=== PATIENT | female | born 1955 | race Caucasian/White ===

== ENCOUNTER 2017-12-02 11:07 | Emergency (ER) | payer OTHER, SELFPAY ==
--- OUTSIDE RECORDS SUMMARY | 2017-12-02 11:08 | XMS REPORT | Clinical Summary ---
:1955 Author Organization [facility] Address [address] [place] [address] Phone Care Team Providers Name Role Phone Unavailable Primary Care Provider Unavailable Allergies Active Allergy Reactions Severity Noted Date Comments Elastic Bandage 12/02/2015 Iodinated Contrast- Oral And Iv Dye 12/02/2015 Sulfa (Sulfonamide Antibiotics) 12/02/2015 Current Medications Prescription Sig. Disp. Refills Start Date End Date Status HYDROmorphone (DILAUDID) 4 Take 4 mg by mouth Active MG tablet every 4 (four) hours as needed for Pain. traZODone (DESYREL) 300 MG Take 300 mg by Active tablet mouth nightly. TiZANidine (ZANAFLEX) 4 MG Take 4 mg by mouth Active capsule 3 (three) times daily. propranolol (INDERAL) 40 Take 40 mg by Active MG tablet mouth 3 (three) times daily. Active Problems Not on file Social History Tobacco Use Types Packs/Day Years Used Date Former Smoker Cigarettes Quit: 12/01/1985 Smokeless Tobacco: Never Used Alcohol Use Drinks/Week oz/Week Comments No Sex Assigned at Date Recorded Not on file Last Filed Vital Signs Not on file Plan of Treatment Not on file Results Not on fileafter 12/01/2016
[2017-12-02] MEDS ORDERED: NA CHLORIDE 0.9% 1,000 ML ONE (11:23)
[2017-12-02 12:35] LABS: Absolute Lymphocytes (CBC) 1.9 K/uL (0.7-4.9); Absolute Monocytes 0.5 K/uL (0.1-1.3); Absolute Neutrophil 2.7 K/uL (1.8-8.0); Basophils % 0.4 % (0-1.3); Eosinophils % 4.7 % (0-4.4); Lymphocytes % 35.2 % (15.3-44.8); MCH 31.7 pg (27.0-35.0); MCV 93.9 fL (80-100); MPV 8.1 fL (7.6-11.3); RBC Red Blood Cell Count 4.04 M/uL (3.86-4.86)
[2017-12-02 12:36] LABS: Protime INR 1.03
[2017-12-02 12:50] LABS: ALT/SGPT 219 U/L (12-78); AST/SGOT 160 U/L (15-37); Albumin 3.5 g/dL (3.4-5.0); Alkaline Phosphatase 140 U/L (45-117); BUN Blood Urea Nitrogen 13 mg/dL (7-18); Bicarbonate 30 mmol/L (21-32); Bilirubin Direct 0.1 mg/dL (0-0.2); Bilirubin Total 0.4 mg/dL (0.2-1.0); Glucose Level 110 mg/dL (74-106); Potassium 4.5 mmol/L (3.5-5.1); Sodium Level 142 mmol/L (136-145)
--- NOTE | 2017-12-02 13:01 | EDPHYS ---
Physician Documentation [facility] Name: Lanny Bolton Age: 62 yrs Sex: Female : 1955 Arrival Date: 12/02/2017 Time: 11:09 Bed 7 Private MD: ED Physician Aristides Fritz HPI: 12/02 13:21 This 62 yrs old Female presents to ER via EMS with complaints of Altered gs Mental Status. 13:21 Onset: The symptoms/episode began/occurred 1 hour(s) ago. Possible causes: drug use, gs benzodiazepines, narcotics, alcohol. Associated signs and symptoms: Pertinent negatives: fall injury. Current symptoms: In the emergency department the patient's symptoms have improved, mildly. The patient has experienced similar episodes in the past, several times. The patient has not recently seen a physician. Historical: - Allergies: 11:15 Iodine; tw2 11:15 Sulfa (Sulfonamide Antibiotics); tw2 - Home Meds: 11:15 Unable to obtain [Active]; tw2 - PMHx: 11:15 Seizures; ptsd; Hypertension; tw2 - Immunization history:: Adult Immunizations unknown. - Social history:: Smoking status: unknown. - Ebola Screening: : Patient denies travel to an Ebola-affected area in the 21 days before illness onset. ROS: 13:21 All other systems are negative. gs Exam: 13:21 Head/Face: Normocephalic, atraumatic. Eyes: Pupils equal round and reactive to light, gs extra-ocular motions intact. Lids and lashes normal. Conjunctiva and sclera are non-icteric and not injected. Cornea within normal limits. Periorbital areas with no swelling, redness, or edema. ENT: Nares patent. No nasal discharge, no septal abnormalities noted. Tympanic membranes are normal and external auditory canals are clear. Oropharynx with no redness, swelling, or masses, exudates, or evidence of obstruction, uvula midline. Mucous membranes moist. Neck: Trachea midline, no thyromegaly or masses palpated, and no cervical lymphadenopathy. Supple, full range of motion without nuchal rigidity, or vertebral point tenderness. No Meningismus. Chest/axilla: Normal chest wall appearance and motion. Nontender with no deformity. No lesions are appreciated. Cardiovascular: Regular rate and rhythm with a normal S1 and S2. No gallops, murmurs, or rubs. Normal PMI, no JVD. No pulse deficits. Respiratory: Lungs have equal breath sounds bilaterally, clear to auscultation and percussion. No rales, rhonchi or wheezes noted. No increased work of breathing, no retractions or nasal flaring. Abdomen/GI: Soft, non-tender, with normal bowel sounds. No distension or tympany. No guarding or rebound. No evidence of tenderness throughout. Back: No spinal tenderness. No costovertebral tenderness. Full range of motion. Skin: Warm, dry with normal turgor. Normal color with no rashes, no lesions, and no evidence of cellulitis. MS/ Extremity: Pulses equal, no cyanosis. Neurovascular intact. Full, normal range of motion. 13:21 Constitutional: The patient appears alert, awake. 13:21 Eyes: Pupils: pinpoint, bilaterally. 13:21 Neuro: Orientation: to person, place, time \T\ situation. Mentation: slow to respond, Cranial nerves: CN II- XII are normal as tested. 13:21 Neuro: Cerebellar function: no acute changes, Motor: moves all fours, strength is normal, Sensation: no obvious gross deficits, Gait: is steady. 13:55 ECG was reviewed by the Attending Physician. Vital Signs: 11:13 BP 115 / 53; Pulse 61; Resp 16; Temp 97.9(TE); Pulse Ox 95% on R/A; Weight 111.13 kg tw2 (R); Height 5 ft. 6 in. (167.64 cm); Pain 0/10; 12:00 BP 110 / 62; Pulse 60; Resp 16; Pulse Ox 95% on R/A; tw2 13:11 BP 106 / 64; Pulse 57; Resp 16; Pulse Ox 95% on R/A; tw2 11:13 Body Mass Index 39.54 (111.13 kg, 167.64 cm) tw2 NIH Stroke Scale Scores: 13:21 NIHSS Score: 1 MDM: 11:22 Patient medically screened. 13:21 Data reviewed: vital signs, nurses notes. ED course: no tpa refused ct no stroke wants gs to be discharged. 12/02 11:15 Order name: Acetaminophen; Complete Time: 13:58 12/02 11:15 Order name: Basic Metabolic Panel; Complete Time: 13:58 12/02 11:15 Order name: CBC with Diff; Complete Time: 13:58 12/02 11:15 Order name: ETOH Level; Complete Time: 13:58 12/02 11:15 Order name: Hepatic Function; Complete Time: 13:58 12/02 11:15 Order name: PT-INR; Complete Time: 13:58 12/02 11:15 Order name: Salicylate; Complete Time: 13:58 12/02 11:15 Order name: EKG; Complete Time: 11:16 12/02 11:15 Order name: EKG - Nurse/Tech; Complete Time: 12:12 12/02 11:15 Order name: Labs collected and sent; Complete Time: 12:12 gs EC:55 Rate is 56 beats/min. Rhythm is regular. NM interval is prolonged. T waves are gs Flattened. Clinical impression: NSR w/ Non-specific ST/T Changes. Interpreted by me. Administered Medications: 14:47 Not Given (no iv access, provider aware): NS 0.9% 1000 ml IV at 1 bolus Per protocol; tw2 1000 mL bolus Disposition: 12/02/17 12:59 Discharged to Home. Impression: Opioid dependence with intoxication, Adverse effect of benzodiazepines. - Condition is Stable. - Discharge Instructions: Drug Overdose. - Medication Reconciliation Form, Thank You Letter, Antibiotic Education, Prescription Opioid Use form. - Follow up: Private Physician; When: 2 - 3 days; Reason: Re-evaluation by your physician. NIH Stroke Scale - NIH Stroke Score Date: 12/02/2017 Time: 13:21 Total Score = 1 1a. Level of Consciousness (LOC) - 0(Alert) 1b. Level of Consciousness (LOC) (Year \T\ Age) - 0(Both) 1c. LOC Commands (Open \T\ Closes Eyes/[place]) - 0(Both) 2. Best Gaze (Lateral Gaze Paresis) - 0(Normal) 3. Visual Field Loss - 0(No visual loss) 4. Facial Palsy - 0(Normal) 5a. Left Arm: Motor (10-second hold) - 0(No drift) 5b. Right Arm: Motor (10-second hold) - 0(No drift) 6a. Left Leg: Motor (5-second hold - always test supine) - 0(No drift) 6b. Right Leg: Motor (5-second hold - always test supine) - 0(No drift) 7. Limb Ataxia (finger/nose \T\ heel/matthews - test with eyes open) - 0(Absent) 8. Sensory Loss (pinprick arms/legs/face) - 0(Normal) 9. Best Language: Aphasia (description/naming/reading) - 0(No aphasia) 10. Dysarthria (speech clarity - read or repeat words) - 1(Mild to Moderate) 11. Extinction and Inattention (visual/tactile/auditory/spatial/personal) - 0(No abnormality) Initials: gs Signatures: Dispatcher [employer] EDMS Marilu Centeno RN RN tw2 Aristides Fritz MD MD gs Corrections: (The following items were deleted from the chart) 12:56 12:13 Head Brain Wo Cont+CT.RAD.BRZ ordered. [facility] EDMS 13:12 12:59 12/02/2017 12:59 Discharged to Home. Impression: Opioid dependence with tw2 intoxication; Adverse effect of benzodiazepines. Condition is Stable. Forms are Medication Reconciliation Form, Thank You Letter, Antibiotic Education, Prescription Opioid Use. Follow up: Private Physician; When: 2 - 3 days; Reason: Re-evaluation by your physician. gs
--- NOTE | 2017-12-02 13:01 | ER ---
Nurse's Notes [facility] Name: Lanny Bolton Age: 62 yrs Sex: Female : 1955 Arrival Date: 12/02/2017 Time: 11:09 Bed 7 Private MD: Diagnosis: Opioid dependence with intoxication;Adverse effect of benzodiazepines Presentation: 12/02 11:10 Presenting complaint: EMS states: original call was that pt was at a gas station in [place], stumbling and staggering and was confused, PD arrived and called us because she was altered. When we arrived pt was ambulatory on scene, alert to name only, denies ETOH and drugs, reports to taking xanax and hydrocodone for chronic back and hip pain, hx: ptsd, seizures, htn, pt has phone and sunglasses on at this time, dog was taken to the police department, no purse seen on scene. Transition of care: patient was not received from another setting of care. Onset of symptoms was December 02, 2017. Risk Assessment: Do you want to hurt yourself or someone else? Patient reports no desire to harm self or others. Initial Sepsis Screen: Does the patient meet any 2 criteria? Altered Mental Status. No. Patient's initial sepsis screen is negative. Does the patient have a suspected source of infection? No. Patient's initial sepsis screen is negative. Care prior to arrival: None. 11:10 Method Of Arrival: EMS: [facility] tw2 11:10 Acuity: SAMREEN 3 tw2 Triage Assessment: 11:10 General: Appears in no apparent distress. Behavior is drowsy. tw2 11:12 General: pt reports "i took dilaudid". tw2 Historical: - Allergies: 11:15 Iodine; tw2 11:15 Sulfa (Sulfonamide Antibiotics); tw2 - Home Meds: 11:15 Unable to obtain [Active]; tw2 - PMHx: 11:15 Seizures; ptsd; Hypertension; tw2 - Immunization history:: Adult Immunizations unknown. - Social history:: Smoking status: unknown. - Ebola Screening: : Patient denies travel to an Ebola-affected area in the 21 days before illness onset. Screenin:13 Abuse screen: Denies threats or abuse. Nutritional screening: No deficits noted. tw2 Tuberculosis screening: No symptoms or risk factors identified. Fall Risk None identified. Assessment: 11:10 General: Appears in no apparent distress. well groomed, Behavior is drowsy. Pain: tw2 Denies pain. Neuro: Level of Consciousness is obeys commands, Oriented to person. Cardiovascular: Denies chest pain, shortness of breath, Heart tones S1 S2 Capillary refill < 3 seconds Patient's skin is warm and dry. Respiratory: Airway is patent Respiratory effort is even, unlabored, Respiratory pattern is regular, symmetrical, Breath sounds are clear bilaterally. GI: Abdomen is round non-distended, obese, Bowel sounds present X 4 quads. : No signs and/or symptoms were reported regarding the genitourinary system. EENT: No signs and/or symptoms were reported regarding the EENT system. Derm: No signs and/or symptoms reported regarding the dermatologic system. Skin is intact, is healthy with good turgor, Skin temperature is warm. Musculoskeletal: Range of motion: intact in all extremities. 12:41 Reassessment: Patient appears in no apparent distress at this time. Patient and/or tw2 family updated on plan of care and expected duration. Pain level reassessed. Patient is alert, oriented x 3, equal unlabored respirations, skin warm/dry/pink. pt is less drowsy, sitting upright in bed, using phone at this time, provider notified. Patient states symptoms have improved. 13:10 Reassessment: Patient appears in no apparent distress at this time. Patient and/or tw2 family updated on plan of care and expected duration. Pain level reassessed. Patient is alert, oriented x 3, equal unlabored respirations, skin warm/dry/pink. pt a\\T\\ox4, spouse at bedside, pt wants discharged at this time. Patient states symptoms have improved. Vital Signs: 11:13 BP 115 / 53; Pulse 61; Resp 16; Temp 97.9(TE); Pulse Ox 95% on R/A; Weight 111.13 kg tw2 (R); Height 5 ft. 6 in. (167.64 cm); Pain 0/10; 12:00 BP 110 / 62; Pulse 60; Resp 16; Pulse Ox 95% on R/A; tw2 13:11 BP 106 / 64; Pulse 57; Resp 16; Pulse Ox 95% on R/A; tw2 11:13 Body Mass Index 39.54 (111.13 kg, 167.64 cm) tw2 NIH Stroke Scale Scores: 13:21 NIHSS Score: 1 ED Course: 11:09 Patient arrived in ED. tw2 11:12 Aristides Fritz MD is Attending Physician. gs 11:12 Triage completed. tw2 11:13 Bed in low position. Call light in reach. Side rails up X2. satellite project site monitor on. Pulse tw2 ox on. NIBP on. 11:15 Arm band placed on. tw2 11:17 Yessica Potter, NERY is Primary Nurse. jl7 11:49 EKG done, by coroner forensic technician. reviewed by Aristides Fritz MD. at1 12:07 Missed attempt(s): 20 gauge in left antecubital area. using US guided IV, provider tw2 notified of unsuccessful attempt, lab called at this time.. Bleeding controlled, band aid applied, catheter tip intact. 12:29 Radiology exam delayed due to Pt refused CT exam Dr. Fritz notified. vr 13:12 No provider procedures requiring assistance completed. Patient did not have IV access tw2 during this emergency room visit. Administered Medications: 14:47 Not Given (no iv access, provider aware): NS 0.9% 1000 ml IV at 1 bolus Per protocol; tw2 1000 mL bolus Outcome: 12:59 Discharge ordered by MD. gs 13:12 Discharged to home ambulatory, with significant other. tw2 13:12 Condition: stable 13:12 Discharge instructions given to patient, significant other, Instructed on discharge instructions, follow up and referral plans. Demonstrated understanding of instructions, follow-up care. 13:12 Patient left the ED. tw2 NIH Stroke Scale - NIH Stroke Score Date: 12/02/2017 Time: 13:21 Total Score = 1 1a. Level of Consciousness (LOC) - 0(Alert) 1b. Level of Consciousness (LOC) (Year \\T\\ Age) - 0(Both) 1c. LOC Commands (Open \\T\\ Closes Eyes/Buyer Renter) - 0(Both) 2. Best Gaze (Lateral Gaze Paresis) - 0(Normal) 3. Visual Field Loss - 0(No visual loss) 4. Facial Palsy - 0(Normal) 5a. Left Arm: Motor (10-second hold) - 0(No drift) 5b. Right Arm: Motor (10-second hold) - 0(No drift) 6a. Left Leg: Motor (5-second hold - always test supine) - 0(No drift) 6b. Right Leg: Motor (5-second hold - always test supine) - 0(No drift) 7. Limb Ataxia (finger/nose \\T\\ heel/matthews - test with eyes open) - 0(Absent) 8. Sensory Loss (pinprick arms/legs/face) - 0(Normal) 9. Best Language: Aphasia (description/naming/reading) - 0(No aphasia) 10. Dysarthria (speech clarity - read or repeat words) - 1(Mild to Moderate) 11. Extinction and Inattention (visual/tactile/auditory/spatial/personal) - 0(No abnormality) Initials: Signatures: Jojo Rodriguez Amanda, medical language specialist EKG Tat1 Marilu Centeno RN RN tw2 Yessica Potter RN RN jl7 Aristides Fritz MD MD gs Corrections: (The following items were deleted from the chart) 12:30 12:17 Patient moved to PR vr vr
[2017-12-02 13:03] LABS: Alcohol Serum/Plasma < 3 mg/dL (<3)
[2017-12-02 13:45] VITALS: TEMP 97.9; O2SAT 95
[2017-12-02 13:47] VITALS: BP 106/64
--- NOTE | 2017-12-02 17:14 | EKG ---
Test Date: 2017-12-02 Test Time: 11:24:20 Technical Project Lead: BHAVANA MEASUREMENT RESULTS: Intervals: Rate: 56 VA: 208 QRSD: 96 QT: 458 QTc: 441 [place]: P: 41 VA: 208 QRS: 106 T: 27 INTERPRETIVE STATEMENTS: Sinus bradycardia Rightward axis Borderline ECG Compared to ECG 02/12/2015 02:23:33 Right-axis deviation now present Sinus rhythm no longer present ST (T wave) deviation no longer present Electronically Signed On 12-02-17 17:11:00 CDT by Hermes Iniguez
== END 2017-12-02 13:12 | disposition home or self-care (01) ==
LOC: ER 11:07
DX: F11.229 Opioid dependence with intoxication, unspecified (principal); T42.4X5A Adverse effect of benzodiazepines, initial encounter; I10 Essential (primary) hypertension; Z88.2 Allergy status to sulfonamides; Z91.048 Other nonmedicinal substance allergy status
CPT/HCPCS: 36415; 80048; 80076; 80320; 80329; 85025; 85610; 93005; 99284; J7030

== ENCOUNTER 2018-04-19 10:32 | Observation (INO) | payer SELFPAY ==
--- OUTSIDE RECORDS SUMMARY | 2018-04-19 10:38 | XMS REPORT | Clinical Summary ---
:1955 Author Organization [facility] Address [address] [place] [address] Care Team Providers Name Role Phone Pcp, No Primary Care Provider Unavailable Allergies Active Allergy Reactions Severity Noted Date Comments Elastic Bandage 12/02/2015 Iodinated Contrast- Oral And Iv Dye 12/02/2015 Sulfa (Sulfonamide Antibiotics) 12/02/2015 Medications Medication Sig Dispensed Refills Start Date End Date Status HYDROmorphone (DILAUDID) Take 4 mg by 0 Active 4 MG tablet mouth every 4 (four) hours as needed for Pain. traZODone (DESYREL) 300 Take 300 mg by 0 Active MG tablet mouth nightly. TiZANidine (ZANAFLEX) 4 Take 4 mg by 0 Active MG capsule mouth 3 (three) times daily. propranolol (INDERAL) 40 Take 40 mg by 0 Active MG tablet mouth 3 (three) times daily. Active Problems Not on file Social History Tobacco Use Types Packs/Day Years Used Date Former Smoker Cigarettes Quit: 12/01/1985 Smokeless Tobacco: Never Used Alcohol Use Drinks/Week oz/Week Comments No Sex Assigned at Date Recorded Not on file Job Start Date Occupation Industry Not on file Not on file Not on file Travel History Travel Start Travel End No recent travel history available. Last Filed Vital Signs Not on file Plan of Treatment Not on file Results Not on fileafter 04/18/2017
--- NOTE | 2018-04-19 11:09 | RAD REPORT ---
EXAM DESCRIPTION: CT - Ct Stroke Brain Wo Cont - 04/19/2018 11:03 am CLINICAL HISTORY: Dizziness;Declining state;Confused CVA symptomology, drowsiness COMPARISON: Head Brain Wo Cont dated 08/13/2015; HEAD BRAIN W O CONTRAST dated 02/10/2015 TECHNIQUE: All CT scans are performed using dose optimization technique as appropriate and may inclu de automated exposure control or mA/KV adjustment according to patient size. FINDINGS: No intracranial hemorrhage, hydrocephalus or extra-axial fluid collection.Mild brain atrop hy is noted.No areas of brain edema or evidence of midline shift. The paranasal sinuses and mastoids are clear. The calvarium is intact. IMPRESSION: No acute intracranial abnormality.
--- NOTE | 2018-04-19 11:20 | EKG ---
Test Date: 2018-04-19 Test Time: 10:49:41 Electrotype Caster: JENNIFER MEASUREMENT RESULTS: Intervals: Rate: 51 CA: 206 QRSD: 106 QT: 458 QTc: 422 [place]: P: 46 CA: 206 QRS: 29 T: -1 INTERPRETIVE STATEMENTS: Sinus bradycardia Otherwise normal ECG Compared to ECG 12/02/2017 11:24:20 Right-axis deviation no longer present Electronically Signed On 04-19-18 11:19:41 [employer] WORK[employer] by Jose Francisco Cardenas
--- NOTE | 2018-04-19 12:15 | RAD REPORT ---
EXAM DESCRIPTION: RAD - Chest Single View - 04/19/2018 12:07 pm CLINICAL HISTORY: COUGH Chest pain. COMPARISON: CHEST SINGLE VIEW dated 02/12/2015; CHEST SINGLE VIEW dated 02/10/2015; CHEST SINGLE VIE W dated 07/28/2013; CHEST SINGLE VIEW dated 07/26/2013; Thorax Wo Con dated 08/14/2015 FINDINGS: Portable technique limits examination quality. Emphysematous changes are present with vague opacity present in the left upper lobe, appearing mildly progressive since the 2014 comparative chest radiograph. The heart is upper limit of normal in size. No displaced fractures.
[2018-04-19 13:02] LABS: Absolute Lymphocytes (CBC) 1.7 K/uL (0.7-4.9); Absolute Monocytes 0.5 K/uL (0.1-1.3); Absolute Neutrophil 2.7 K/uL (1.8-8.0); Basophils % 1.4 % (0-1.3); Eosinophils % 6.6 % (0-4.4); Hematocrit 41.1 % (36.0-45.0); Lymphocytes % 31.4 % (15.3-44.8); MPV 8.2 fL (7.6-11.3); Monocytes % 9.4 % (3.3-12.3); RBC Red Blood Cell Count 4.32 M/uL (3.86-4.86)
[2018-04-19 13:06] LABS: Protime INR 0.99
[2018-04-19 13:11] LABS: ALT/SGPT 66 U/L (12-78); AST/SGOT 65 U/L (15-37); Albumin 3.6 g/dL (3.4-5.0); Alkaline Phosphatase 120 U/L (45-117); BUN Blood Urea Nitrogen 12 mg/dL (7-18); Bicarbonate 31 mmol/L (21-32); Bilirubin Direct 0.2 mg/dL (0-0.2); Bilirubin Total 0.4 mg/dL (0.2-1.0); Glucose Level 106 mg/dL (74-106); Lipase 112 U/L (73-393); Magnesium 2.1 mg/dL (1.8-2.4); NT PRO-BNP 97 pg/mL (<125); Potassium 4.2 mmol/L (3.5-5.1); Protein, Total 7.5 g/dL (6.4-8.2); Sodium Level 139 mmol/L (136-145); Troponin (Emerg Dept Use Only) < 0.02 ng/mL (0.0-0.045)
--- NOTE | 2018-04-19 13:33 | RAD REPORT ---
EXAM DESCRIPTION: MRI - MRA Head Wo Cont - 04/19/2018 1:22 pm CLINICAL HISTORY: Headache, dizziness CVA COMPARISON: Ct Stroke Brain Wo Cont dated 04/19/2018 FINDINGS: 3D noncontrast [id number] MR angiography of the [place] was performed. No aneurysm, flow-limiting stenosis or vascular malformation is seen. Forward flow seen in codominant vertebral arteries. origin of the right posterior communicating artery noted, normal variant. The visualized dural venous sinuses appear patent. IMPRESSION: No significant flow abnormality of the [place] is identified.
[2018-04-19 13:45] LABS: Platelet Estimate ADEQ; Urine White Blood Cell Casts OK
[2018-04-19 13:46] LABS: Blood Morphology Comment NOT SEEN (NOT SEEN)
[2018-04-19 14:53] LABS: Barbiturates NEGATIVE (NEGATIVE); Benzodiazepines POSITIVE (NEGATIVE); Cocaine NEGATIVE (NEGATIVE); METHAMPHETAM NEGATIVE (NEGATIVE); Methadone NEGATIVE (NEGATIVE); Opiates NEGATIVE (NEGATIVE); Phencyclidine NEGATIVE (NEGATIVE); THC Cannibis NEGATIVE (NEGATIVE)
--- NOTE | 2018-04-19 15:41 | RAD REPORT ---
EXAM DESCRIPTION: US - CP - 04/19/2018 3:30 pm CLINICAL HISTORY: N CVA symptomology, drowsiness COMPARISON: CAROTID ARTERY BILATERAL dated 06/28/2011 TECHNIQUE: Real-time sonographic evaluation of both carotid systems was performed. Doppler interroga tion was performed with waveform tracing bilaterally. FINDINGS: Normal high resistance waveforms are noted in both external carotid arteries. The common c arotid arteries and internal carotid arteries show normal low resistance waveforms. Minimal plaquing is seen in both proximal internal carotid arteries. Peak systolic and end diastolic velocity values and the ICA/CCA ratios are in the non-hemodynamically significant range. Antegrade flow seen in both vertebral arteries. IMPRESSION: No significant atherosclerotic changes noted. No evidence of a hemodynamically significant stenosis.
[2018-04-19 16:18] LABS: Urine Blood 2+ (NEG); Urine Glucose NEGATIVE (NEG); Urine Protein 1+ (NEG); Urine Specific Gravity 1.015 (1.005-1.030)
--- NOTE | 2018-04-19 16:25 | EDPHYS ---
Physician Documentation [facility] Name: Lanny Bolton Age: 63 yrs Sex: Female : 1955 Arrival Date: 04/19/2018 Time: 10:35 Bed 7 Private MD: Unknown, Unknown ED Physician Geoff Lang HPI: 04/19 10:50 This 63 yrs old Female presents to ER via Ambulatory with complaints of S/S bertin of Possible Stroke. 10:50 The patient's problem is reported as altered mental status, confused. bertin Historical: - Allergies: 10:47 Iodine; ss 10:47 Sulfa (Sulfonamide Antibiotics); ss - Home Meds: 10:47 Dilaudid 4 mg PO 1 tablet QID PRN pain [Active]; trazodone 100 mg Oral tab 1 tab 3 ss times per day [Active]; Xanax 1 mg Oral tab 1 tab twice a day [Active]; Zanaflex 4 mg Oral tab 1 tab every 6 hours [Active]; Ambien 10 mg Oral tab 1 tab once daily [Active]; Inderal 40 mg DAILY [Active]; - PMHx: 10:47 Hypertension; PTSD; Seizures; Anxiety; chronic back pain; ss - Immunization history:: Adult Immunizations up to date. - Social history:: Smoking status: Patient/guardian denies using tobacco. - Ebola Screening: : Patient denies exposure to infectious person Patient denies travel to an Ebola-affected area in the 21 days before illness onset. - Family history:: not pertinent. ROS: 10:51 Constitutional: Negative for fever, chills, and weight loss, Eyes: Negative for injury, bertin pain, redness, and discharge, ENT: Negative for injury, pain, and discharge, Neck: Negative for injury, pain, and swelling, Cardiovascular: Negative for chest pain, palpitations, and edema, Respiratory: Negative for shortness of breath, cough, wheezing, and pleuritic chest pain, Abdomen/GI: Negative for abdominal pain, nausea, vomiting, diarrhea, and constipation, Back: Negative for injury and pain, : Negative for injury, bleeding, discharge, and swelling, MS/Extremity: Negative for injury and deformity, Skin: Negative for injury, rash, and discoloration, Allergy/Immunology: Negative for hives, rash, and allergies, Endocrine: Negative for neck swelling, polydipsia, polyuria, polyphagia, and marked weight changes, Hematologic/Lymphatic: Negative for swollen nodes, abnormal bleeding, and unusual bruising. 10:51 Neuro: Positive for altered mental status, dizziness, gait disturbance, speech changes, weakness. 10:51 Psych: Positive for auditory hallucinations, visual hallucinations. Exam: 10:51 Constitutional: This is a well developed, well nourished patient who is awake, alert, bertin and in no acute distress. Head/Face: Normocephalic, atraumatic. Eyes: Pupils equal round and reactive to light, extra-ocular motions intact. Lids and lashes normal. Conjunctiva and sclera are non-icteric and not injected. Cornea within normal limits. Periorbital areas with no swelling, redness, or edema. ENT: Nares patent. No nasal discharge, no septal abnormalities noted. Tympanic membranes are normal and external auditory canals are clear. Oropharynx with no redness, swelling, or masses, exudates, or evidence of obstruction, uvula midline. Mucous membranes moist. Neck: Trachea midline, no thyromegaly or masses palpated, and no cervical lymphadenopathy. Supple, full range of motion without nuchal rigidity, or vertebral point tenderness. No Meningismus. Chest/axilla: Normal chest wall appearance and motion. Nontender with no deformity. No lesions are appreciated. Cardiovascular: Regular rate and rhythm with a normal S1 and S2. No gallops, murmurs, or rubs. Normal PMI, no JVD. No pulse deficits. Respiratory: Lungs have equal breath sounds bilaterally, clear to auscultation and percussion. No rales, rhonchi or wheezes noted. No increased work of breathing, no retractions or nasal flaring. Abdomen/GI: Soft, non-tender, with normal bowel sounds. No distension or tympany. No guarding or rebound. No evidence of tenderness throughout. Back: No spinal tenderness. No costovertebral tenderness. Full range of motion. Female : Normal external genitalia. Skin: Warm, dry with normal turgor. Normal color with no rashes, no lesions, and no evidence of cellulitis. MS/ Extremity: Pulses equal, no cyanosis. Neurovascular intact. Full, normal range of motion. Neuro: Awake and alert, GCS 15, oriented to person, place, time, and situation. Cranial nerves II-XII grossly intact. Motor strength 5/5 in all extremities. Sensory grossly intact. Cerebellar exam normal. Normal gait. Psych: Awake, alert, with orientation to person, place and time. Behavior, mood, and affect are within normal limits. 16:25 Radiologist reports: neg [facility] Vital Signs: 10:50 BP 135 / 72; Pulse 57; Resp 18; Temp 97.1; Pulse Ox 95% on R/A; Weight 107.95 kg; ph Height 5 ft. 6 in. (167.64 cm); 12:00 BP 158 / 83; Pulse 54; Resp 18; Pulse Ox 96% on R/A; ph 13:14 BP 150 / 74; Pulse 53; Resp 16; Pulse Ox 95% on R/A; ph 16:37 BP 141 / 72; Pulse 52; Resp 18; Pulse Ox 96% on R/A; ph 10:50 Body Mass Index 38.41 (107.95 kg, 167.64 cm) ph NIH Stroke Scale Scores: 10:51 NIHSS Score: 0 bertin 12:00 NIHSS Score: 0 ph Procedures: 16:25 Central Line: the site was prepped with Betadine, in sterile fashion, a triple lumen [facility] catheter was inserted, in the right femoral vein, in 1 attempts. placement was verified, by blood return, the site was dressed with Tegaderm, the patient tolerated the procedure, well. MDM: 10:45 Patient medically screened. [facility] 10:54 Data reviewed: vital signs, nurses notes, lab test result(s), EKG, radiologic studies, [facility] CT scan, doppler, MRI, plain films. 04/19 10:49 Order name: Basic Metabolic Panel [facility] 04/19 10:49 Order name: CBC with Diff [facility] 04/19 10:49 Order name: LFT's [facility] 04/19 10:49 Order name: Magnesium [facility] 04/19 10:49 Order name: NT PRO-BNP [facility] 04/19 10:49 Order name: PT-INR; Complete Time: 15:44 [facility] 04/19 10:49 Order name: Troponin (emerg Dept Use Only); Complete Time: 13:21 [facility] 04/19 10:49 Order name: Lipase; Complete Time: 13:21 [facility] 04/19 10:49 Order name: Urine Culture [facility] 04/19 10:49 Order name: Acetaminophen; Complete Time: 13:21 [facility] 04/19 10:49 Order name: ETOH Level; Complete Time: 17:09 bertin 04/19 10:49 Order name: Ptt, Activated; Complete Time: 15:44 bertin 04/19 10:49 Order name: Salicylate bertin 04/19 10:49 Order name: Urine Drug Screen; Complete Time: 15:44 bertin 04/19 10:49 Order name: XRAY Chest (1 view); Complete Time: 12:52 bertin 04/19 10:49 Order name: CT Stroke Brain w/o Contrast; Complete Time: 12:52 bertin 04/19 10:49 Order name: Sed Rate; Complete Time: 15:44 bertin 04/19 10:49 Order name: CRP; Complete Time: 13:21 bertin 04/19 10:50 Order name: Basic Metabolic Panel; Complete Time: 13:21 EDMS 04/19 10:50 Order name: CBC with Automated Diff; Complete Time: 15:44 EDMS 04/19 10:50 Order name: Liver (Hepatic) Function; Complete Time: 13:21 EDMS 04/19 10:50 Order name: Magnesium; Complete Time: 13:21 EDMS 04/19 10:50 Order name: NT PRO-BNP; Complete Time: 13:21 EDMS 04/19 10:51 Order name: TSH; Complete Time: 17:09 bertin 04/19 12:33 Order name: MRA Head Wo Cont; Complete Time: 15:44 EDMS 04/19 13:12 Order name: Carotid Artery Bilateral; Complete Time: 15:44 EDMS 04/19 13:45 Order name: CBC Smear Scan; Complete Time: 15:44 EDMS 04/19 14:38 Order name: Urine Dipstick--Ancillary (enter results); Complete Time: 16:21 ag 04/19 10:49 Order name: EKG; Complete Time: 10:50 bertin 04/19 10:49 Order name: Cardiac monitoring; Complete Time: 10:59 bertin 04/19 10:49 Order name: EKG - Nurse/Tech; Complete Time: 10:59 bertin 04/19 10:49 Order name: IV Saline Lock; Complete Time: 16:37 bertin 04/19 10:49 Order name: Labs collected and sent; Complete Time: 16:37 bertin 04/19 10:49 Order name: O2 Per Protocol; Complete Time: 10:59 bertin 01/02 10:49 Order name: O2 Sat Monitoring; Complete Time: 10:59 [facility] 04/19 16:31 Order name: Brain Wo Cont EDMS Administered Medications: 16:35 Drug: NS 0.9% 500 ml Route: IV; Rate: bolus; Site: right femoral; ph 17:30 Follow up: Response: No adverse reaction; IV Status: Completed infusion ph 16:35 Drug: Ativan 1 mg Route: IVP; Site: right femoral; ph 17:00 Follow up: Response: No adverse reaction; Anxiety decreased ph 16:36 Drug: Thiamine 100 mg Route: IV; Rate: bolus; Site: right femoral; ph 17:00 Follow up: Response: No adverse reaction; IV Status: Completed infusion ph 16:36 Drug: foLIC Acid 1 mg Route: IVPB; Site: right femoral; ph 17:00 Follow up: Response: No adverse reaction; IV Status: Completed infusion ph 17:55 Drug: Rocephin - (cefTRIAXone) 1 grams Route: IVPB; Infused Over: 30 mins; Site: right ph femoral; 18:30 Follow up: Response: No adverse reaction; IV Status: Completed infusion ph 17:55 Drug: Aspirin 162 mg Route: PO; ph 18:30 Follow up: Response: No adverse reaction ph 17:56 Drug: NS 0.9% 1000 ml Route: IV; Rate: 125 ml/hr; Site: right femoral; ph 18:30 Follow up: Response: No adverse reaction; IV Status: Infusion continued upon admission ph Point of Care Testing: Blood Glucose: 10:45 Blood Glucose: 96 mg/dL; ph Ranges: Critical Glucose Levels:Adult <50 mg/dl or >400 mg/dl <40 mg/dl or >180 mg/dl Disposition: 04/19/18 16:25 Hospitalization ordered by Marilynn Ervin for Observation. Preliminary diagnosis are Weakness, Altered mental status, unspecified, Obesity, unspecified, Hallucinations, unspecified, Cystitis. - Bed requested for Telemetry/MedSurg (observation). - Status is Observation. ss - Condition is Fair. - Problem is new. - Symptoms have improved. UTI on Admission? Yes NIH Stroke Scale - NIH Stroke Score Date: 04/19/2018 Time: 10:51 Total Score = 0 1a. Level of Consciousness (LOC) - 0(Alert) 1b. Level of Consciousness (LOC) (Year \T\ Age) - 0(Both) 1c. LOC Commands (Open \T\ Closes Eyes/Social Media Content Manager) - 0(Both) 2. Best Gaze (Lateral Gaze Paresis) - 0(Normal) 3. Visual Field Loss - 0(No visual loss) 4. Facial Palsy - 0(Normal) 5a. Left Arm: Motor (10-second hold) - 0(No drift) 5b. Right Arm: Motor (10-second hold) - 0(No drift) 6a. Left Leg: Motor (5-second hold - always test supine) - 0(No drift) 6b. Right Leg: Motor (5-second hold - always test supine) - 0(No drift) 7. Limb Ataxia (finger/nose \T\ heel/matthews - test with eyes open) - 0(Absent) 8. Sensory Loss (pinprick arms/legs/face) - 0(Normal) 9. Best Language: Aphasia (description/naming/reading) - 0(No aphasia) 10. Dysarthria (speech clarity - read or repeat words) - 0(Normal) 11. Extinction and Inattention (visual/tactile/auditory/spatial/personal) - 0(No abnormality) Initials: [facility] NIH Stroke Scale - NIH Stroke Score Date: 04/19/2018 Time: 12:00 Total Score = 0 1a. Level of Consciousness (LOC) - 0(Alert) 1b. Level of Consciousness (LOC) (Year \T\ Age) - 0(Both) 1c. LOC Commands (Open \T\ Closes Eyes/Social Media Content Manager) - 0(Both) 2. Best Gaze (Lateral Gaze Paresis) - 0(Normal) 3. Visual Field Loss - 0(No visual loss) 4. Facial Palsy - 0(Normal) 5a. Left Arm: Motor (10-second hold) - 0(No drift) 5b. Right Arm: Motor (10-second hold) - 0(No drift) 6a. Left Leg: Motor (5-second hold - always test supine) - 0(No drift) 6b. Right Leg: Motor (5-second hold - always test supine) - 0(No drift) 7. Limb Ataxia (finger/nose \T\ heel/matthews - test with eyes open) - 0(Absent) 8. Sensory Loss (pinprick arms/legs/face) - 0(Normal) 9. Best Language: Aphasia (description/naming/reading) - 0(No aphasia) 10. Dysarthria (speech clarity - read or repeat words) - 0(Normal) 11. Extinction and Inattention (visual/tactile/auditory/spatial/personal) - 0(No abnormality) Initials: ph Signatures: Dispatcher [employer] EDGeoff Lowery MD MD cha Smirch, Shelby, NERY RN Ameena White Patricia, RN RN ph Corrections: (The following items were deleted from the chart) 12:32 10:50 MR STROKE PROTOCOL+MRI.RAD.BRZ ordered. EDNY EDMS 13:11 10:50 Carotid Artery Bilateral+US.RAD.BRZ ordered. EDNY EDMS 16:31 15:47 MR STROKE PROTOCOL+MRI.RAD.BRZ ordered. EDNY EDMS 17:15 16:25 Hospitalization Ordered by Marilynn Ervin MD for Observation. Preliminary ag diagnosis is Weakness; Altered mental status, unspecified; Obesity, unspecified; Hallucinations, unspecified; Cystitis. Bed requested for Telemetry/MedSurg (observation). Status is Observation. Condition is Fair. Problem is new. Symptoms have improved. UTI on Admission? Yes. [facility] 18:48 17:15 04/19/2018 16:25 Hospitalization Ordered by Marilynn Ervin MD for ss Observation. Preliminary diagnosis is Weakness; Altered mental status, unspecified; Obesity, unspecified; Hallucinations, unspecified; Cystitis. Bed requested for Telemetry/MedSurg (observation). Status is Observation. Condition is Fair. Problem is new. Symptoms have improved. UTI on Admission? Yes. ag
--- NOTE | 2018-04-19 16:25 | ER ---
Nurse's Notes [facility] Name: Lanny Bolton Age: 63 yrs Sex: Female : 1955 Arrival Date: 04/19/2018 Time: 10:35 Bed 7 Private MD: Unknown, Unknown Diagnosis: Weakness;Altered mental status, unspecified;Obesity, unspecified;Hallucinations, unspecified;Cystitis Presentation: 04/19 10:35 Presenting complaint: Patient states: confusion, trouble walking and difficulty ss speaking that began 4-5 days ago and has been progressing since. reports patient has a history of chronic pain and takes multiple medications for pain, but states it couldn't be medication as he has the bottles and it appears that patient has not been taking them. Pt does have a Fentanyl patch on to R upper extremity on arrival. Transition of care: patient was not received from another setting of care. Pre-hospital glucose is not applicable to this patient. Onset of symptoms was April 14, 2018. Risk Assessment: Do you want to hurt yourself or someone else? Patient reports no desire to harm self or others. Initial Sepsis Screen: Does the patient meet any 2 criteria? No. Patient's initial sepsis screen is negative. Does the patient have a suspected source of infection? No. Patient's initial sepsis screen is negative. Note also mentioned that patient has been gaining weight recently, and has seen her doctors for it, but nobody knows the reason for the weight gain. Care prior to arrival: None. 10:35 Method Of Arrival: Ambulatory ss 10:35 Acuity: SAMREEN 3 ss 10:35 No acute neurological deficit is noted. ph Triage Assessment: 15:00 The onset of the patients symptoms was more than six hours ago. ph 19:20 The onset of the patients symptoms was. ph Stroke Activation: Symptom onset > 6 hours Physician: Stroke Attending; Name: ; Notified At: ; Arrived At: Physician: Chief Stroke Resident; Name: ; Notified At: ; Arrived At: Physician: Stroke Resident; Name: ; Notified At: ; Arrived At: Physician: ED Attending; Name: ; Notified At: ; Arrived At: Physician: ED Resident; Name: ; Notified At: ; Arrived At: Historical: - Allergies: 10:47 Iodine; ss 10:47 Sulfa (Sulfonamide Antibiotics); ss - Home Meds: 10:47 Dilaudid 4 mg PO 1 tablet QID PRN pain [Active]; trazodone 100 mg Oral tab 1 tab 3 ss times per day [Active]; Xanax 1 mg Oral tab 1 tab twice a day [Active]; Zanaflex 4 mg Oral tab 1 tab every 6 hours [Active]; Ambien 10 mg Oral tab 1 tab once daily [Active]; Inderal 40 mg DAILY [Active]; - PMHx: 10:47 Hypertension; PTSD; Seizures; Anxiety; chronic back pain; ss - Immunization history:: Adult Immunizations up to date. - Social history:: Smoking status: Patient/guardian denies using tobacco. - Ebola Screening: : Patient denies exposure to infectious person Patient denies travel to an Ebola-affected area in the 21 days before illness onset. - Family history:: not pertinent. Screenin:52 Abuse screen: Denies threats or abuse. Denies injuries from another. Nutritional ph screening: No deficits noted. Tuberculosis screening: No symptoms or risk factors identified. Fall Risk No fall in past 12 months (0 pts). No secondary diagnosis (0 pts). IV access (20 points). Ambulatory Aid- Crutches/Cane/Walker (15 pts). Gait- Weak (10 pts.). Mental Status- Overestimates/Forgets Limitations (15 pts.). Total Krishnamurthy Fall Scale indicates High Risk Score (45 or more points). Fall prevention measures have been instituted. Side Rails Up X 2 Placed Close to Nursing Station Frequent Obs/Assessments Occuring Family Present and informed to notify staff if the need to leave the bedside As available patient and family educated on Fall Prevention Program and Strategies. Assessment: 10:53 T-PA (Activase) Screening: Contraindications: Patient reports onset of signs and ph symptoms of stroke greater than 6 hours ago: Yes. General: Appears in no apparent distress. comfortable, obese, well groomed, Behavior is calm, cooperative, appropriate for age, Denies fever, feeling ill. Pain: Complains of pain in neck, back, and kennedy knees, hx of chronic pain. Neuro: Level of Consciousness is awake, alert, obeys commands, Oriented to person, place, situation, Moves all extremities. Gait is unsteady, Speech is normal, Facial symmetry appears normal, Facial symmetry: tongue is midline, Pupils are PERRLA, Intact Reports weakness in kennedy arms and legs, reports that weakness is worse on R side Denies numbness headache. Cardiovascular: Reports fatigue, lightheadedness, shortness of breath, Denies chest pain, Capillary refill < 3 seconds in bilateral fingers Patient's skin is warm and dry. Edema is 3+ to left ankle, left foot, right ankle and right foot Rhythm is sinus bradycardia. Respiratory: Reports shortness of breath at rest Airway is patent Respiratory effort is even, unlabored, Respiratory pattern is regular, symmetrical. GI: No signs and/or symptoms were reported involving the gastrointestinal system. : Reports urinary frequency. Derm: Skin is intact, is healthy with good turgor, Skin is pink, warm \T\ dry. Musculoskeletal: Circulation, motion, and sensation intact. Range of motion: intact in all extremities. 11:40 Reassessment: Pt in radiology. ph 12:50 Reassessment: Patient appears in no apparent distress at this time. Patient and/or ph family updated on plan of care and expected duration. Pain level reassessed. US IV attempted by Luis Spencer RN, able to obtain blood by IV infiltrated after flushing, blood sent to lab and ERP notified. 13:11 Reassessment: Patient appears in no apparent distress at this time. Patient and/or ph family updated on plan of care and expected duration. Pain level reassessed. Patient is alert, oriented x 3, equal unlabored respirations, skin warm/dry/pink. Pt resting quietly, awaiting ERP to place line for medication administration, also awaiting line placement for MRI. 14:54 Reassessment: Pt assisted to restroom with WC, voided x1. la1 15:35 Patient has been NPO before screening. The patient is alert, and able to follow ph commands. The patient does not exhibit slurred or garbled speech. The patient is not exhibiting difficulty speaking. The patient does not exhibit difficulty understanding words. The patient is able to swallow own secretions with no drooling or need for suction. Patient tolerated one teaspoon of water. No drooling, immediate coughing, gurgling, or clearing of the throat was noted. The patient tolerated 90mL of water. No drooling, immediate coughing, gurgling, or clearing of the throat was noted. The patient passed the bedside swallow screening. Oral medications may be given as ordered. Contact Physician for further diet orders. Provider notified of bedside swallow screening results: Geoff Lang MD. 17:00 Reassessment: Patient appears in no apparent distress at this time. Patient and/or ph family updated on plan of care and expected duration. Pain level reassessed. Patient is alert, oriented x 3, equal unlabored respirations, skin warm/dry/pink. Pt resting quietly, VSS, SO at bedside, awaiting results of MRI. 18:08 Reassessment: Patient appears in no apparent distress at this time. Patient and/or ph family updated on plan of care and expected duration. Pain level reassessed. Patient is alert, oriented x 3, equal unlabored respirations, skin warm/dry/pink. Report called to Johnson Mc RN on 4th floor. Vital Signs: 10:50 BP 135 / 72; Pulse 57; Resp 18; Temp 97.1; Pulse Ox 95% on R/A; Weight 107.95 kg; ph Height 5 ft. 6 in. (167.64 cm); 12:00 BP 158 / 83; Pulse 54; Resp 18; Pulse Ox 96% on R/A; ph 13:14 BP 150 / 74; Pulse 53; Resp 16; Pulse Ox 95% on R/A; ph 16:37 BP 141 / 72; Pulse 52; Resp 18; Pulse Ox 96% on R/A; ph 10:50 Body Mass Index 38.41 (107.95 kg, 167.64 cm) ph NIH Stroke Scale Scores: 10:51 NIHSS Score: 0 bertin 12:00 NIHSS Score: 0 ph ED Course: 10:35 Patient arrived in ED. sb2 10:36 Unknown, Unknown is Private Physician. sb2 10:45 Triage completed. ss 10:45 Geoff Lang MD is Attending Physician. bertin 10:47 Arm band placed on right wrist. ss 10:50 Edilma Clarke, NERY is Primary Nurse. ph 10:51 Missed attempt(s): 22 gauge in right antecubital area. Bleeding controlled, band aid ph applied, catheter tip intact. 10:53 Patient has correct armband on for positive identification. Placed in gown. Bed in low ph position. Call light in reach. Side rails up X2. quality assurance monitor final on. Pulse ox on. NIBP on. Warm blanket given. 11:01 CT completed. Patient tolerated procedure well. Patient moved to CT via stretcher. sj Patient moved to MRI Patient moved back from CT. 11:04 CT Stroke Brain w/o Contrast In Process Unspecified. EDMS 11:12 EKG done, by fisheries technician. reviewed by Geoff Lang MD. sm3 12:04 X-ray completed. Portable x-ray completed in exam room. Patient tolerated procedure jb2 well. 12:07 XRAY Chest (1 view) In Process Unspecified. EDMS 13:23 MRA Head Wo Cont In Process Unspecified. EDMS 15:31 Carotid Artery Bilateral In Process Unspecified. EDMS 16:05 Assisted provider with central line placement. Set up central line tray. Triple lumen ph line placed Line placed by Geoff Lang MD Placement verified by blood return, Dressed with Tape, Tegaderm, Blood was collected. Patient tolerated well. Before procedure, did Practitioner(s) obtain informed consent? Yes. Patient \T\ family education about procedure, CLABSI prevention and S/S of infection? Yes. Time-out/Briefing performed prior to start of procedure? Yes. Was handwashing/sanitizing done immediately prior to procedure? Yes. Was patient positioned to in a way to prevent air embolism? Yes. Was procedure site sterilized? Yes, with Was the site allowed to dry? Yes. Was local anesthetic and/or sedation utilized? Yes. During the procedure, did the Practitioner(s) maintain a sterile field? Yes. Were unused ports clamped during insertion? Yes. Was a 2nd qualified MD obtained after 3 unsuccessful insertion attempts? N/A. Was blood aspirated from each lumen? Yes. After the procedure, did the Practitioner(s) clean the site and apply a sterile dressing? Yes. 16:23 Marilynn Ervin MD is Hospitalizing Provider. bertin 16:40 Patient moved to MRI via wheelchair. ka 17:41 Patient moved back from MRI. ka 18:30 Patient admitted, IV remains in place. ph Administered Medications: 16:35 Drug: NS 0.9% 500 ml Route: IV; Rate: bolus; Site: right femoral; ph 17:30 Follow up: Response: No adverse reaction; IV Status: Completed infusion ph 16:35 Drug: Ativan 1 mg Route: IVP; Site: right femoral; ph 17:00 Follow up: Response: No adverse reaction; Anxiety decreased ph 16:36 Drug: Thiamine 100 mg Route: IV; Rate: bolus; Site: right femoral; ph 17:00 Follow up: Response: No adverse reaction; IV Status: Completed infusion ph 16:36 Drug: foLIC Acid 1 mg Route: IVPB; Site: right femoral; ph 17:00 Follow up: Response: No adverse reaction; IV Status: Completed infusion ph 17:55 Drug: Rocephin - (cefTRIAXone) 1 grams Route: IVPB; Infused Over: 30 mins; Site: right ph femoral; 18:30 Follow up: Response: No adverse reaction; IV Status: Completed infusion ph 17:55 Drug: Aspirin 162 mg Route: PO; ph 18:30 Follow up: Response: No adverse reaction ph 17:56 Drug: NS 0.9% 1000 ml Route: IV; Rate: 125 ml/hr; Site: right femoral; ph 18:30 Follow up: Response: No adverse reaction; IV Status: Infusion continued upon admission ph Point of Care Testing: Blood Glucose: 10:45 Blood Glucose: 96 mg/dL; ph Ranges: Outcome: 16:25 Decision to Hospitalize by Provider. bertin 18:30 Admitted to Tele accompanied by tech, family with patient, via stretcher, with chart. ph 18:30 Condition: stable 18:30 Instructed on the need for admit. 18:48 Patient left the ED. NIH Stroke Scale - NIH Stroke Score Date: 04/19/2018 Time: 10:51 Total Score = 0 1a. Level of Consciousness (LOC) - 0(Alert) 1b. Level of Consciousness (LOC) (Year \T\ Age) - 0(Both) 1c. LOC Commands (Open \T\ Closes Eyes/Coal Chemist) - 0(Both) 2. Best Gaze (Lateral Gaze Paresis) - 0(Normal) 3. Visual Field Loss - 0(No visual loss) 4. Facial Palsy - 0(Normal) 5a. Left Arm: Motor (10-second hold) - 0(No drift) 5b. Right Arm: Motor (10-second hold) - 0(No drift) 6a. Left Leg: Motor (5-second hold - always test supine) - 0(No drift) 6b. Right Leg: Motor (5-second hold - always test supine) - 0(No drift) 7. Limb Ataxia (finger/nose \T\ heel/matthews - test with eyes open) - 0(Absent) 8. Sensory Loss (pinprick arms/legs/face) - 0(Normal) 9. Best Language: Aphasia (description/naming/reading) - 0(No aphasia) 10. Dysarthria (speech clarity - read or repeat words) - 0(Normal) 11. Extinction and Inattention (visual/tactile/auditory/spatial/personal) - 0(No abnormality) Initials: bertin NIH Stroke Scale - NIH Stroke Score Date: 04/19/2018 Time: 12:00 Total Score = 0 1a. Level of Consciousness (LOC) - 0(Alert) 1b. Level of Consciousness (LOC) (Year \T\ Age) - 0(Both) 1c. LOC Commands (Open \T\ Closes Eyes/Coal Chemist) - 0(Both) 2. Best Gaze (Lateral Gaze Paresis) - 0(Normal) 3. Visual Field Loss - 0(No visual loss) 4. Facial Palsy - 0(Normal) 5a. Left Arm: Motor (10-second hold) - 0(No drift) 5b. Right Arm: Motor (10-second hold) - 0(No drift) 6a. Left Leg: Motor (5-second hold - always test supine) - 0(No drift) 6b. Right Leg: Motor (5-second hold - always test supine) - 0(No drift) 7. Limb Ataxia (finger/nose \T\ heel/matthews - test with eyes open) - 0(Absent) 8. Sensory Loss (pinprick arms/legs/face) - 0(Normal) 9. Best Language: Aphasia (description/naming/reading) - 0(No aphasia) 10. Dysarthria (speech clarity - read or repeat words) - 0(Normal) 11. Extinction and Inattention (visual/tactile/auditory/spatial/personal) - 0(No abnormality) Initials: ph Signatures: Dispatcher [employer] EDCO Geoff Lang MD MD cha Buechter, Jesse jb2 Jones, Susan sj Smirch, Shelby, RN RN ss Luis Luo RN RN la1 Edilma Clarke RN RN Ric, Suzi Paul2 Pretty Singh3 Corrections: (The following items were deleted from the chart) 13:11 13:10 In radiology for Carotid Artery Bilateral+US.RAD.BRZ. EDMS EDMS : 12:00 BP 150 / 74; Pulse 53bpm; Resp 16bpm; Pulse Ox 95% RA; ph ph
[2018-04-19] MEDS ORDERED: THIAMINE 200 MG/2 ML INJ ONE (16:29)
[2018-04-19] MEDS ORDERED: NA CHLORIDE 0.9% 1,000 ML ONE (16:29)
[2018-04-19] MEDS ORDERED: LORazepam 2 MG/ML VIAL ONE (16:29)
[2018-04-19] MEDS ORDERED: FOLIC ACID 5 MG/ML VIAL ONE (16:30)
--- NOTE | 2018-04-19 17:36 | RAD REPORT ---
EXAM DESCRIPTION: MRI - Brain Wo Cont - 04/19/2018 5:29 pm CLINICAL HISTORY: Dizziness, weakness, CVA difficulty walking, difficulty speaking COMPARISON: CT head same date TECHNIQUE: Sagittal T1-weighted images were obtained along with axial PD, heavily T2-weighted and T2 -FLAIR images. Axial DWI and ADC mapping sequences were also obtained along with coronal heavily T2-w eighted images. FINDINGS: No intracranial hemorrhage, mass or acute infarction. There is no edema or shift of midlin e structures. No extra-axial fluid collections. Gunn-matter/white matter junction is preserved. Signa l voids are seen as a normal finding in the major intracranial vessels. Volume loss changes are minim al. Ventricles are normal. No measurable chronic ischemic changes seen in this patient. No globe or orbital content abnormality. There is no tonsillar ectopia. No sella or supra sella abnor mality seen. Mastoid air cells and paranasal sinuses are clear. IMPRESSION: No acute infarction changes are present. No significant intracranial finding.
[2018-04-19] MEDS ORDERED: ASPIRIN 81 MG CHEWABLE TABLET ONE (17:51)
[2018-04-19] MEDS ORDERED: CEFTRIAXONE/SWI 1gm 1 GM/10 ML SYR ONE (17:52)
[2018-04-19] MEDS ORDERED: ACETAMINOPHEN 500 MG TAB PO PRN (20:45)
[2018-04-19] MEDS: ONDANSETRON 4 MG/2 ML VIAL IV PRN (21:33)
[2018-04-19 23:19] VITALS: BMI 38.4
--- NOTE | 2018-04-20 02:01 | P.HP ---
Certification for Inpatient Patient admitted to: Observation With expected LOS: <2 Midnights Practitioner: I am a practitioner with admitting privileges, knowledge of patient current condition, hospital course, and medical plan of care. Services: Services provided to patient in accordance with Admission requirements found in Title 42 Section 412.3 of the Code of Federal Regulations Patient History Date of Service: 04/19/18 Reason for admission: Delirium History of Present Illness: Ms Bolton is a 63 years old woman with history of chronic pain syndrome, anxiety, who is taking multiple medication including opioid and benzodiazepine, several times a day, came to ED because altered mental status. She was confused , having visual and auditory hallucinations. No history of fever or chills. The patient had an extensive work up in ER, including CT head, brain MRI/MRA, both studies showed no acute abnormalities. Carotid US report no significant stenosis. At my encounter, the patient was oriented, and remember having the hallucinations. She states that every time she has a UTI, have similar problem, however, this time was more severe. No fever, she is hemodynamically stable. Allergies ciprofloxacin [From Cipro] Allergy (Verified 07/26/13 23:36) Anaphylaxis ciprofloxacin HCl [From Cipro] Allergy (Verified 07/26/13 23:36) Anaphylaxis iodine-123 Adverse Reaction (Intermediate, Verified 06/28/11 02:25) Itching/Hives/Rash Sulfa (Sulfonamide Antibiotics) [Sulfa(Sulfonamide Antibiotics)] Adverse Reaction (Intermediate, Verified 06/27/11 15:49) Shortness of breath Cipro PO Allergy (Uncoded 02/21/15 10:54) Unknown SULFA (SULFONAMIDES) Allergy (Uncoded 02/21/15 10:54) Unknown Home Medications: Alprazolam [Xanax] 1 mg PO TID PRN 06/28/11 Docosahexanoic AC/Epa [Fish Oil 1,000 MG*] 4 cap PO DAILY 06/28/11 Hydromorphone [Dilaudid*] 4 mg PO Q6HP PRN 02/11/15 Omeprazole Magnesium [Prilosec Otc] 20 mg PO DAILY 02/11/15 Propranolol [Inderal*] 40 mg PO BID 02/11/15 Tizanidine [Zanaflex*] 4 mg PO TID 02/11/15 Trazodone [Desyrel*] 100 mg PO TID 02/11/15 Zolpidem Tartrate [Ambien*] 10 mg PO BEDTIME 02/11/15 fentaNYL [Fentanyl] 1 each TD EVERY 3RD DAY 04/19/18 - Past Medical/Surgical History Has patient received pneumonia vaccine in the past: No Diabetic: No -: HTN -: Asthma -: seizures -: PTSD -: anxiety -: Cholecystectomy -: Neck surgeries x3 -: -: Hysterectomy -: Amputation of ring finger L Hand -: Bowel reconstructive surgery (tubal ligation infection) - Family History Father -: Lung disease, Cancer Mother -: Cancer Sister -: Cancer - Social History Smoking Status: Never smoker Alcohol use: No CD- Drugs: No Caffeine use: Yes Place of Residence: Home Review of Systems 10-point ROS is otherwise unremarkable Physical Examination - Vital Signs Temperature: 97.7 F Blood Pressure: 140/67 Pulse: 57 Respirations: 20 Pulse Ox (%): 95 - Physical Exam General: Alert, In no apparent distress, Oriented x2 (no in time) HEENT: Atraumatic, PERRLA, Mucous membr. moist/pink, EOMI, Sclerae nonicteric Neck: Supple, 2+ carotid pulse no bruit, No LAD, Without JVD or thyroid abnormality Respiratory: Clear to auscultation bilaterally, Normal air movement Cardiovascular: Regular rate/rhythm, Normal S1 S2 Gastrointestinal: Normal bowel sounds, No tenderness Musculoskeletal: No tenderness Integumentary: No rashes Neurological: Normal speech, Normal strength at 5/5 x4 extr, Normal tone, Normal affect Lymphatics: No axilla or inguinal lymphadenopathy - Studies Laboratory Data (last 24 hrs) 04/19/18 12:34: PT 11.7, INR 0.99, APTT 21.9 L 04/19/18 12:34: WBC 5.3, Hgb 13.7, Hct 41.1, Plt Count 214 04/19/18 12:34: Sodium 139, Potassium 4.2, BUN 12, Creatinine 0.96, Glucose 106 , Magnesium 2.1, Total Bilirubin 0.4, AST 65 H, ALT 66, Alkaline Phosphatase 120 H, Lipase 112 Assessment and Plan - Problems (Diagnosis) (1) Delirium Current Visit: Yes Status: Acute (2) Chronic pain Onset Date: 02/11/15 Current Visit: No Status: Acute Qualifiers: Chronic pain type: chronic pain syndrome Qualified Code(s): G89.4 - Chronic pain syndrome (3) Confusion Onset Date: 02/11/15 Current Visit: No Status: Acute - Plan The patient was admitted to the hospital due to confusion associated with hallucinations, consistent with delirium. She has normal work up so far. Etiology is multifactorial including polymedication, also UTI. Start empiric Rocephin IV, urine culture in process. - Advance Directives Does patient have a Living Will: No Does patient have a Durable POA for Healthcare: No - Code Status/Comfort Care Code Status Assessed: Yes Code Status: Full Code
[2018-04-20 06:40] LABS: Absolute Lymphocytes (CBC) 1.8 K/uL (0.7-4.9); Absolute Monocytes 0.5 K/uL (0.1-1.3); Absolute Neutrophil 3.5 K/uL (1.8-8.0); Basophils % 1.9 % (0-1.3); Eosinophils % 5.2 % (0-4.4); Hematocrit 38.9 % (36.0-45.0); Lymphocytes % 28.7 % (15.3-44.8); MPV 7.9 fL (7.6-11.3); Monocytes % 8.6 % (3.3-12.3)
[2018-04-20 07:02] LABS: Albumin 3.3 g/dL (3.4-5.0); Bilirubin Total 0.5 mg/dL (0.2-1.0); Potassium 4.2 mmol/L (3.5-5.1); Protein, Total 6.6 g/dL (6.4-8.2)
[2018-04-20 09:44] VITALS: BP 141/67; TEMP 99.2
[2018-04-20 10:09] VITALS: O2SAT 94
[2018-04-20] MEDS ORDERED: TRAMADOL HCL 50 MG TAB PO ONE (11:47)
[2018-04-20] MEDS: ONDANSETRON 4 MG/2 ML VIAL IV PRN (11:58)
[2018-04-20] MEDS ORDERED: CEFTRIAXONE/SWI 1gm 1 GM/10 ML SYR IV SCH (18:00)
[2018-04-20] MEDS ORDERED: CEFTRIAXONE 1 GM/NS 50 ML 1 GM/50 ML BAG IV SCH (18:00)
--- NOTE | 2018-04-20 18:40 | P.SSS ---
Patient History Date of Service: 04/20/18 Reason for admission: Delirium History of Present Illness: Ms Bolton is a 63 years old woman with history of chronic pain syndrome, anxiety, who is taking multiple medication including opioid and benzodiazepine, several times a day, came to ED because altered mental status. She was confused , having visual and auditory hallucinations. No history of fever or chills. The patient had an extensive work up in ER, including CT head, brain MRI/MRA, both studies showed no acute abnormalities. Carotid US report no significant stenosis. At my encounter, the patient was oriented, and remember having the hallucinations. She states that every time she has a UTI, have similar problem, however, this time was more severe. No fever, she is hemodynamically stable. Allergies ciprofloxacin [From Cipro] Allergy (Verified 07/26/13 23:36) Anaphylaxis ciprofloxacin HCl [From Cipro] Allergy (Verified 07/26/13 23:36) Anaphylaxis iodine-123 Adverse Reaction (Intermediate, Verified 06/28/11 02:25) Itching/Hives/Rash Sulfa (Sulfonamide Antibiotics) [Sulfa(Sulfonamide Antibiotics)] Adverse Reaction (Intermediate, Verified 06/27/11 15:49) Shortness of breath Cipro PO Allergy (Uncoded 02/21/15 10:54) Unknown SULFA (SULFONAMIDES) Allergy (Uncoded 02/21/15 10:54) Unknown Home Medications: RX: Alprazolam [Xanax] 1 mg PO TID PRN 06/28/11 RX: Docosahexanoic AC/Epa [Fish Oil 1,000 MG*] 4 cap PO DAILY 06/28/11 RX: Hydromorphone [Dilaudid*] 4 mg PO Q6HP PRN 02/11/15 RX: Omeprazole Magnesium [Prilosec Otc] 20 mg PO DAILY 02/11/15 RX: Propranolol [Inderal*] 40 mg PO BID 02/11/15 RX: Tizanidine [Zanaflex*] 4 mg PO TID 02/11/15 RX: Trazodone [Desyrel*] 100 mg PO TID 02/11/15 RX: Zolpidem Tartrate [Ambien*] 10 mg PO BEDTIME 02/11/15 RX: fentaNYL [Fentanyl] 1 each TD EVERY 3RD DAY 04/19/18 RX: Cefdinir [Omnicef] 300 mg PO BID #10 capsule 04/20/18 - Past Medical/Surgical History Has patient received pneumonia vaccine in the past: No Diabetic: No -: HTN -: Asthma -: seizures -: PTSD -: anxiety -: Cholecystectomy -: Neck surgeries x3 -: -: Hysterectomy -: Amputation of ring finger L Hand -: Bowel reconstructive surgery (tubal ligation infection) - Family History Father -: Lung disease, Cancer Mother -: Cancer Sister -: Cancer - Social History Smoking Status: Never smoker Alcohol use: No CD- Drugs: No Caffeine use: Yes Place of Residence: Home Review of Systems 10-point ROS is otherwise unremarkable Physical Examination - Vital Signs Temperature: 99.2 F Blood Pressure: 141/67 Pulse: 57 Respirations: 16 Pulse Ox (%): 94 - Physical Exam General: Alert, In no apparent distress, Oriented x3 HEENT: Atraumatic, PERRLA, Mucous membr. moist/pink, EOMI, Sclerae nonicteric Neck: Supple, 2+ carotid pulse no bruit, No LAD, Without JVD or thyroid abnormality Respiratory: Clear to auscultation bilaterally, Normal air movement Cardiovascular: Regular rate/rhythm, Normal S1 S2 Gastrointestinal: Normal bowel sounds, No tenderness Musculoskeletal: No tenderness Integumentary: No rashes Neurological: Normal gait, Normal speech, Normal strength at 5/5 x4 extr, Normal tone, Normal affect Lymphatics: No axilla or inguinal lymphadenopathy Treatment Summary: Patient was admitted for confusion associated hallucinations, consistent with delirium. Workup was normal, urine culture revealed normal julio cesar. The symptoms were likely secondary to the multiple pain medications patient takes on regular basis. This morning on my exam, patient was alert oriented x3, not in any acute distress and she stated that she had 1 visual hallucination overnight, she stated that she saw a monster in the room. Otherwise no more auditory hallucinations. As I was discussing discharging patient, she asked if she could have her pain medications back then. Discussed that the pain medications that patient is taking may be the cause of these symptoms, she should have a discussion with her pain managed care regarding making some changes. Patient stated that she will discuss with the pain management doctor but she has been on these is medications put past 4 years and has not had any problems with it. Prior to discharge, patient complained of some abdominal pain which resolved with tramadol. Her physical exam remained benign even at that time. She was discharged on an oral antibiotic to complete a 5 day course. She was instructed to follow up with primary care physician in 1 week. - Disposition Disposition: ROUTINE DISCHARGE Condition: GOOD Patient Discharge Instructions: Please follow up with your primary care physician in 1-2 weeks. List provided to you to establish care with a physician. Please return to the Emergency Department for worsening symptoms. Diet: Regular Activity: Ad david Physician Review: Patient Assessed, Agree with Above Assessment and Plan Time Spent Managing Pts Care (In Minutes): 55
== END 2018-04-20 12:45 | disposition home or self-care (01) ==
LOC: ER 10:32 → ERHOLD 16:47 → 4TH 18:27
PROVIDERS: ADMIT Family Medicine; ATTEND Internal Medicine
DX: R41.0 Disorientation, unspecified (principal); R44.1 Visual hallucinations; G89.4 Chronic pain syndrome; F41.9 Anxiety disorder, unspecified; I10 Essential (primary) hypertension; Z88.0 Allergy status to penicillin; Z88.2 Allergy status to sulfonamides
CPT/HCPCS: 36415; 70450; 70544; 70551; 71045; 80048; 80053; 80076; 80307; 80320; 80329; 81003; 82962; 83690; 83735; 83880; 84443; 84484; 85025; 85610; 85652; 85730; 86140; 87086; 87088; 93005; 93880; 94760; 96361; 96365; 96367; 96368; 96375; 99285; G0378; J0696; J2405; J3411; J7030

== ENCOUNTER 2019-02-28 14:09 | Inpatient (IN) | payer SELFPAY ==
--- OUTSIDE RECORDS SUMMARY | 2019-02-28 14:11 | XMS REPORT ---
:1955 [facility] Address [address] [place] [address] Dr. Carter [address] [place] [id number] Care Team Providers Name Role Phone Unavailable Unavailable Unavailable Problems This patient has no known problems. Allergies, Adverse Reactions, Alerts This patient has no known allergies or adverse reactions. Medications This patient has no known medications.
[2019-02-28] MEDS ORDERED: NA CHLORIDE 0.9% 500 ML ONE (15:05)
[2019-02-28] MEDS ORDERED: LORazepam 2 MG/ML VIAL ONE (15:11)
--- NOTE | 2019-02-28 16:35 | RAD REPORT ---
EXAM DESCRIPTION: Violet Single View02/28/2019 4:13 pm CLINICAL HISTORY: Chest pain COMPARISON: November 2018 FINDINGS: Left upper lobe opacities without obvious change Right lung appears clear. Heart is normal size IMPRESSION: Left upper lobe opacities without obvious change may indicate neoplasm or pneumonia
[2019-02-28 16:53] LABS: Absolute Lymphocytes (CBC) 1.8 K/uL (0.7-4.9); Basophils % 1.2 % (0-1.3); Lymphocytes % 18.9 % (15.3-44.8); MPV 7.4 fL (7.6-11.3); RBC Red Blood Cell Count 4.18 M/uL (3.86-4.86)
[2019-02-28 17:03] LABS: Barbiturates NEGATIVE (NEGATIVE); Benzodiazepines POSITIVE (NEGATIVE); Cocaine NEGATIVE (NEGATIVE); METHAMPHETAM NEGATIVE (NEGATIVE); Methadone NEGATIVE (NEGATIVE); Opiates POSITIVE (NEGATIVE); Phencyclidine NEGATIVE (NEGATIVE); THC Cannibis NEGATIVE (NEGATIVE)
[2019-02-28 17:11] LABS: Albumin 4.4 g/dL (3.4-5.0); Bilirubin Direct 0.2 mg/dL (0-0.2); Bilirubin Total 0.7 mg/dL (0.2-1.0); Potassium 4.4 mmol/L (3.5-5.1); Protein, Total 8.2 g/dL (6.4-8.2)
--- NOTE | 2019-02-28 17:38 | RAD REPORT ---
EXAM DESCRIPTION: CT - Thorax Wo Con - 02/28/2019 5:07 pm CLINICAL HISTORY: sob COMPARISON: 2016 cat scan TECHNIQUE: Computed axial tomography of the chest was obtained. Contrast was not requested. All CT scans are performed using dose optimization technique as appropriate and may include automated exposure control or mA/KV adjustment according to patient size. FINDINGS: The evaluation of mediastinum, bryant and vessels is limited secondary to lack of IV contras t administration. A 6 centimeter left upper lobe mass is present. It has enlarged since 2016 the right lung is clear 24 millimeter lymph node aorticopulmonary window A pleural effusion is not present. 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
[2019-02-28 17:42] LABS: Urine Blood NEGATIVE (NEG); Urine Glucose NEGATIVE (NEG); Urine Protein TRACE (NEG); Urine Specific Gravity <1.005 (1.005-1.030)
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
--- NOTE | 2019-02-28 19:49 | RAD REPORT ---
EXAM DESCRIPTION: CT - Abdomen Pelvis Wo Contrast - 02/28/2019 7:07 pm CLINICAL HISTORY: Abdominal pain COMPARISON: 2016 TECHNIQUE: Computed axial tomography of the abdomen and pelvis was obtained. IV and oral contrast we re not requested. All CT scans are performed using dose optimization technique as appropriate and may include automated exposure control or mA/KV adjustment according to patient size. FINDINGS: The evaluation of solid organs, vessels and bowel is limited secondary to the lack of con trast administration. Small low-density area within the liver is unchanged from the prior exam probably cyst. Gallbladder is been removed Spleen, pancreas, adrenals and kidneys appear grossly normal. The appendix is normal. There is no evidence of diverticulitis. No ascites. No omental/mesenteric nodules IMPRESSION: No acute abnormality is displayed.
[2019-02-28] MEDS ORDERED: ONDANSETRON 4 MG/2 ML VIAL ONE (19:53)
[2019-02-28] MEDS ORDERED: IPRATROPIUM BROM 0.5MG/2.5ML NEB PRN (20:57)
[2019-02-28] MEDS ORDERED: ZOLPIDEM TARTRATE 5 MG TABLET PO PRN (20:57)
[2019-02-28] MEDS ORDERED: ALBUTEROL 2.5 MG/3 ML NEB SOL NEB PRN (20:57)
[2019-02-28] MEDS ORDERED: ACETAMINOPHEN 500 MG TAB PO PRN (20:57)
--- NOTE | 2019-02-28 21:00 | P.HP ---
Certification for Inpatient Patient admitted to: Inpatient With expected LOS: >2 Midnights Practitioner: I am a practitioner with admitting privileges, knowledge of patient current condition, hospital course, and medical plan of care. Services: Services provided to patient in accordance with Admission requirements found in Title 42 Section 412.3 of the Code of Federal Regulations Patient History Date of Service: 03/01/19 Reason for admission: Shortness of breath History of Present Illness: 63-year-old obese woman with a history anxiety disorder, migraine headaches, chronic pain syndrome presents to the emergency department with a complaint of 1 week history of shortness of which got worse today. Patient stated she felt her throat was closing up. She was also complaining of pain all over and headache. CT chest done in the emergency department demonstrated left upper lobe mass. She was using 100% non-rebreather mask and saturating 98% when I saw her in the ED. She was complaining of pain all over and headache. She is afebrile, she has no leukocytosis. Her creatinine is elevated above baseline. The patient is admitted for further management. Allergies ciprofloxacin [From Cipro] Allergy (Verified 07/26/13 23:36) Anaphylaxis ciprofloxacin HCl [From Cipro] Allergy (Verified 07/26/13 23:36) Anaphylaxis iodine-123 Adverse Reaction (Intermediate, Verified 06/28/11 02:25) Itching/Hives/Rash Sulfa (Sulfonamide Antibiotics) [Sulfa(Sulfonamide Antibiotics)] Adverse Reaction (Intermediate, Verified 06/27/11 15:49) Shortness of breath Cipro PO Allergy (Uncoded 11/29/18 23:08) Anaphylaxis SULFA (SULFONAMIDES) Allergy (Uncoded 11/29/18 23:08) Anaphylaxis Home Medications: Alprazolam [Xanax] 1 mg PO BIDP PRN 11/29/18 Hydromorphone HCl [Dilaudid] 4 mg PO Q6HP PRN 11/29/18 Propranolol HCl 20 mg PO BID 11/29/18 Tizanidine [Zanaflex*] 4 mg PO QIDP PRN 11/29/18 Trazodone HCl 100 mg PO TID 11/29/18 fentaNYL [Fentanyl] 1 patch Q72H 11/29/18 - Past Medical/Surgical History Diabetic: No -: HTN -: Asthma -: seizures -: PTSD -: anxiety -: Cholecystectomy -: Neck surgeries x3 -: -: Hysterectomy -: Amputation of ring finger L Hand -: Bowel reconstructive surgery (tubal ligation infection) - Family History Father -: Lung disease, Cancer Mother -: Cancer Sister -: Cancer - Social History Smoking Status: Former smoker Alcohol use: No CD- Drugs: No Caffeine use: Yes Review of Systems Other: General: No fever, no malaise, no unintentional weight loss. Eyes: No eye discharge, CVS: no palpitation, no lightheadedness. GI: No nausea no vomit, no constipation, no diarrhea. Genitourinary: No dysuria, no urinary frequency, no incontinence, no hematuria. Musculoskeletal: No joint pains, or joint swelling, no gait instability. Neurology: No asymmetric, weakness, no problem with swallowing. Except as documented, all other systems reviewed and negative. Physical Examination - Physical Exam General: Alert, In no apparent distress, Oriented x3 HEENT: Normocephalic, PERRLA, Mucous membr. moist/pink, Sclerae nonicteric Neck: Supple, JVD not distended, No Thyromegaly Respiratory: Clear to auscultation bilaterally, Normal air movement Cardiovascular: No edema, Regular rate/rhythm, Normal S1 S2, Abnormal S3, No murmurs Capillary refill: <2 Seconds Gastrointestinal: Normal bowel sounds, Soft and benign, Non-distended, No tenderness Musculoskeletal: No swelling Integumentary: No rashes, No erythema Neurological: Normal speech, Normal strength at 5/5 x4 extr, Cranial nerves 3- 12 intact - Studies Laboratory Data (last 24 hrs) 02/28/19 16:45: WBC 9.7, Hgb 12.8, Hct 39.0, Plt Count 300 02/28/19 16:45: Sodium 140, Potassium 4.4, BUN 31 H, Creatinine 2.29 H, Glucose 105, Total Bilirubin 0.7, AST 24, ALT 30, Alkaline Phosphatase 99 Assessment and Plan - Problems (Diagnosis) (1) Pneumonia Current Visit: Yes Status: Suspected Qualifiers: Pneumonia type: due to unspecified organism (2) Lung mass Current Visit: Yes Status: Acute (3) Chronic pain syndrome Current Visit: Yes Status: Chronic (4) Anxiety Current Visit: No Status: Chronic - Plan Admit patient to the medical floor Treat empirically with IV Rocephin and Zithromax Bronchodilators IV steroid. Oxygen as needed Consult to Dr. Crow for evaluation for biopsy by bronchoscopy Will continue patient on home pain medications. She is also requesting for her Xanax during the hospital stay. She is at risk for polypharmacy and delirium. - Advance Directives Does patient have a Living Will: No Does patient have a Durable POA for Healthcare: No
[2019-02-28] MEDS: LORazepam 2 MG/ML VIAL IV PRN (21:24)
[2019-02-28] MEDS: NA CHLORIDE 0.9% 1,000 ML IV SCH (21:25)
[2019-02-28 21:31] VITALS: BMI 35.5
[2019-03-01] MEDS: LORazepam 2 MG/ML VIAL IV PRN ×2 (02:29→11:14)
[2019-03-01 04:36] LABS: Absolute Lymphocytes (CBC) 1.1 K/uL (0.7-4.9); Basophils % 0.3 % (0-1.3); Hematocrit 34.7 % (36.0-45.0); Lymphocytes % 14.3 % (15.3-44.8); MPV 8.3 fL (7.6-11.3); RBC Red Blood Cell Count 3.74 M/uL (3.86-4.86)
[2019-03-01 04:45] LABS: Magnesium 2.2 mg/dL (1.8-2.4); Potassium 4.8 mmol/L (3.5-5.1)
[2019-03-01] MEDS: NA CHLORIDE 0.9% 1,000 ML IV SCH ×3 (04:57→22:20)
[2019-03-01] MEDS ORDERED: TIZANIDINE 4 MG TABLET PO PRN (07:14)
--- NOTE | 2019-03-01 08:18 | EKG ---
Test Date: 2019-02-28 Test Time: 15:51:07 Professor Sculpture: JENNIFER MEASUREMENT RESULTS: Intervals: Rate: 78 SD: 162 QRSD: 90 QT: 362 QTc: 412 [place]: P: 41 SD: 162 QRS: 64 T: -18 INTERPRETIVE STATEMENTS: Sinus rhythm with premature atrial complexes T wave abnormality, consider inferior ischemia Abnormal ECG Compared to ECG 11/30/2018 07:43:36 Atrial premature complex(es) now present Sinus bradycardia no longer present T-wave abnormality still present Possible ischemia still present Electronically Signed On 03-01-19 08:16:08 COMPUTER NETWORKING INSTRUCTOR by Hermes Iniguez
[2019-03-01] MEDS: TRAZODONE 50 MG TABLET PO SCH ×3 (09:00→20:25)
[2019-03-01] MEDS: HYDROMORPHONE ORAL 4 MG TAB PO PRN ×3 (11:13→23:37)
[2019-03-01] MEDS: ONDANSETRON 4 MG/2 ML VIAL IV PRN ×2 (11:13→19:39)
[2019-03-01] MEDS ORDERED: ALBUTEROL 2.5 MG/3 ML NEB SOL NEB PRN (16:00)
[2019-03-01 16:37] VITALS: O2SAT 98
[2019-03-01] MEDS ORDERED: METHYLPREDNISOLONE 40 MG INJ IV ONE (18:08)
--- NOTE | 2019-03-01 18:46 | PN ---
Date of Progress Note: 03/01/2019 Subjective: Patient is seen and examined. Chart reviewed and case discussed with RN and Dr. Crow. Patient has had multiple episodes of anxiety, agitation, verbal abuse to the staff. Spoke with and the patient has been on multiple narcotics and benzodiazepines for several years. Patient has severe PTSD and anxiety and chronic pain. Patient's in fact had given patient medications on his own without informing the nurses. The patient's blood pressure dropped to the 90s over 60s. He has been instructed to refrain from doing that. I instructed the nurses to take the medications and Pharmacy have him held in a secure location until patient is discharged. Patient was very much confused, did not know where she was, could not tell me the name of her doctors. Subsequently then complained of urinary retention, requesting Huang catheter. The patient displaying behaviors of drug-seeking behavior. Medications: List reviewed. Physical Examination: Vital Signs: Temperature 97, heart rate 65, blood pressure 100/66, respirations 15, O2 of 95% on 2 L via nasal cannula. General: Awake, alert, oriented x3, somewhat confused female, obese. CV: S1, S2. Regular rate and rhythm. Respiratory: Diminished breath sounds at the bases. No wheezing or stridor. Gastrointestinal: Abdomen is soft, nontender, nondistended. Positive bowel sounds. Extremities: No clubbing, cyanosis, or edema. Neurologic: Nonfocal. Laboratory Data: Sodium 141, potassium 4.8, chloride 110, CO2 of 21, BUN 31, creatinine 1.58, glucose 134, calcium 8.3. Magnesium 2.2. WBC 7.7, H and H 11.6 and 34.7, platelets 278, neutrophils 84%. CT scan of the abdomen and pelvis shows no acute abnormality. Small low density area within the liver is unchanged from prior exam, probably cyst. Assessment: A 63-year-old female with: 1. Pneumonia. We will continue IV Rocephin and Zithromax, being treated empirically. Follow up on cultures. 2. Lung mass, left upper lobe, [address] Crow. This is very suspicious for bronchogenic carcinoma. Patient also has lymph node, which is 24 mm, likely neoplastic as well. Patient will need biopsy, PET scan, and staging. 3. Chronic pain syndrome. Patient is on Dilaudid. Sees Dr. Lorenzo for pain management. 4. Generalized anxiety disorder, on chronic benzodiazepines. 5. Urinary retention. Bladder scan showed 600 mL. Huang catheter placed. 6. Post-traumatic stress disorder. 7. Narcotic-induced constipation. 8. Polypharmacy and suspect opioid use disorder. 9. Noncompliance. The patient taking medications on her own. states he was afraid patient was going to withdrawal. I explained to him that the patient will not withdrawal in a matter of hours. Instructed not to give any further medications at home by himself. Patient will be moved to room in front of the nursing station with door open. Home medications to be given to Pharmacy for secure lock up. At this time, states that the medications are at home. 10. Acute kidney injury, improving. Kidney function is improved. We will continue with IV fluids. 11. Hypotension, drug-induced, improving. Plan: 1. Patient has severe uncontrolled chronic pain. She may not be an ideal candidate for chemo radiation or perhaps even surgery at this time. patient is unfunded. We will likely need to follow up as outpatient for further workup including biopsy, PET scan, and further imaging studies. We will discuss with Pulmonology. /JOANN Voice ID: [id number] Report ID: [id number] MIGUEL
[2019-03-01] MEDS: ALPRAZOLAM 1 MG TABLET PO PRN (19:35)
[2019-03-01] MEDS: DOCUSATE NA 100 MG CAP PO SCH (20:25)
[2019-03-01] MEDS: PROPRANOLOL HCL 10 MG TAB PO SCH (20:26)
[2019-03-01] MEDS ORDERED: HOME MED 1 EA UNK (Propranolol Hcl [Propranolol Hcl] 20 MG) PO SCH (21:00)
[2019-03-02] MEDS: ONDANSETRON 4 MG/2 ML VIAL IV PRN ×2 (06:19→12:42)
[2019-03-02] MEDS: ALPRAZOLAM 1 MG TABLET PO PRN (06:19)
[2019-03-02] MEDS: HYDROMORPHONE ORAL 4 MG TAB PO PRN (06:24)
[2019-03-02] MEDS: NA CHLORIDE 0.9% 1,000 ML IV SCH (06:38)
[2019-03-02] MEDS: PROPRANOLOL HCL 10 MG TAB PO SCH (08:58)
[2019-03-02] MEDS: DOCUSATE NA 100 MG CAP PO SCH (08:58)
[2019-03-02] MEDS: TRAZODONE 50 MG TABLET PO SCH ×2 (08:59→14:05)
[2019-03-02] MEDS ORDERED: POLYETHYL GLY 3350 17 GM/DOSE PO SCH (09:00)
--- NOTE | 2019-03-02 10:21 | P.CNS ---
Date of Consult: 03/01/19 Chief Complaint: Left upper lobe lung mass History of Present Illness: Patient is 63 years of age with a history of COPD the triple medical problems admitted with worsening dyspnea with smoking a long time ago she has severe back pain women with respiratory failure a non-rebreather mask as significant amount of pain seeing Pain management found to have a left upper lobe lung mass which had increased in size Allergies ciprofloxacin [From Cipro] Allergy (Verified 07/26/13 23:36) Anaphylaxis ciprofloxacin HCl [From Cipro] Allergy (Verified 07/26/13 23:36) Anaphylaxis iodine-123 Adverse Reaction (Intermediate, Verified 06/28/11 02:25) Itching/Hives/Rash Sulfa (Sulfonamide Antibiotics) [Sulfa(Sulfonamide Antibiotics)] Adverse Reaction (Intermediate, Verified 06/27/11 15:49) Shortness of breath Cipro PO Allergy (Uncoded 11/29/18 23:08) Anaphylaxis SULFA (SULFONAMIDES) Allergy (Uncoded 11/29/18 23:08) Anaphylaxis Home Medications: Alprazolam [Xanax] 1 mg PO BIDP PRN 11/29/18 Hydromorphone HCl [Dilaudid] 4 mg PO Q6HP PRN 11/29/18 Propranolol HCl 20 mg PO BID 11/29/18 Tizanidine [Zanaflex*] 4 mg PO TIDP PRN 11/29/18 Trazodone HCl 100 mg PO TID 11/29/18 fentaNYL [Fentanyl] 1 patch ID Q72H 11/29/18 Docusate [Colace Cap*] 1 tab PO BID 03/01/19 Polyethylene Glycol 3350 [Miralax] 17 gm PO DAILY 03/01/19 - Past Medical/Surgical History Diabetic: No -: HTN -: Asthma -: seizures -: PTSD -: anxiety -: chronic back pain -: osteoarthritis -: mitral valve prolapse -: irregular hr -: Cholecystectomy -: Neck surgeries x3 -: -: Hysterectomy -: Amputation of ring finger L Hand -: Bowel reconstructive surgery (tubal ligation infection) - Family History Father Medical History: Lung disease, Cancer Notes: brain ca Mother Medical History: Cancer Notes: colon ca Sister Medical History: Cancer Notes: cervical ca - Social History Smoking Status: Unknown if ever smoked Alcohol use: No CD- Drugs: No Caffeine use: Yes Place of Residence: Home Review of Systems General: Weakness Respiratory: Shortness of Breath Musculoskeletal: Back Pain Physical Examination Temp Pulse Resp BP Pulse Ox 97.3 F 62 16 174/82 H 98 03/02/19 08:00 03/02/19 08:58 03/02/19 08:00 03/02/19 08:58 03/02/19 08:00 General: Alert, Moderate distress Neck: Supple Respiratory: Clear to auscultation bilaterally, Diminished Cardiovascular: No edema, Regular rate/rhythm Gastrointestinal: Normal bowel sounds, Soft and benign Musculoskeletal: No clubbing, No contractures - Problems (1) Lung mass Current Visit: Yes Status: Acute Plan: Patient is 63 years of age admitted with a left upper lobe lung mass and presence since August is gone progressively worse most likely he has lung cancer patient is very debilitated has significant amount of back pain seeing Pain management discuss with the t the patient does not have any insurance at this time she is high risk for lung biopsy not very mobile due to pain. Baseline functioning is very poor I am not sure she will be a good candidate for chemo radiation or even surgery right now the family members are plan to apply for some insurance I also discussed with them in case even if you manage to do a biopsy she will need a follow up with the Cancer Center are in addition patient will need pulmonary function test to evaluate for possible surgery including a PET scan Patient has a history of asthma she quit smoking a very long time ago she was exposed to significant secondhand smoke I think she will benefit from Wixela, long-acting bronchodilator generic equivalent of Advair can be purchased s relatively inexpensive Luis using include Rx treat 1 coupon patient has chronic renal insufficiency patient is significant amount of pain medication including Dilaudid and pain patches vital signs are stable patient is 98% on room air t no evidence of active sepsis Patient can follow up with me as an outpatient in the decided to proceed with biopsy explained this is include bleeding infection and lung collapse
[2019-03-02 12:27] VITALS: BP 150/80; TEMP 97.9
--- NOTE | 2019-03-03 02:36 | DS ---
Date of Discharge: 03/02/2019 Consultants: Dr. Crow with Pulmonology. Admitting Diagnoses: 1. Pneumonia. 2. Lung mass. 3. Chronic pain syndrome. 4. Generalized anxiety disorder. 5. Obesity, BMI 35.5. 6. Posttraumatic stress disorder. Discharge Diagnoses: 1. Lung mass, left upper lobe 6 cm, likely neoplastic. 2. Shortness of breath. 3. Chronic pain syndrome on chronic narcotics. 4. Generalized anxiety disorder, on chronic benzodiazepines. 5. Urinary retention. 6. Posttraumatic stress disorder. 7. Narcotic-induced constipation. 8. Polypharmacy suspect opioid use disorder. 9. Noncompliance. 10. Acute kidney injury. 11. Hypotension, drug induced. Hospital Course: Patient is a 63-year-old female with past medical history of generalized anxiety disorder, PTSD, migraine headaches, chronic pain syndrome on chronic narcotics, who comes in with shortness of breath, which was worsening. Patient did have acute alcohol intoxication with serum alcohol level of 5. White count was normal. Workup revealed a left upper lobe mass. Patient was initially on a non-rebreather mask. Patient was seen by Pulmonology. Initially, pneumonia was suspected. However, antibiotics were discontinued. Pulmonology did not feel that there was any pneumonia. CT of the abdomen and pelvis was also done; however, no acute abnormality was seen. No mesenteric or omental nodules were seen. The liver lesion seen on the chest CT turned out to be a cyst unchanged from prior exam in 2016. Patient unfortunately is unfunded, will need workup including biopsy, PET scan, and other workup. Initially plan was for biopsy, however Pulmonology felt that the patient had significant back pain, not a good candidate for biopsy at this time, was high risk due to poor baseline functioning. Patient also may not be a good candidate for chemoradiation therapy and surgery. Patient will need to follow up with Pulmonology as an outpatient to have biopsy scheduled and follow up with Oncology locally or at [facility] for further evaluation and staging. Patient was given breathing treatments and her shortness of breath improved. It should be noted that the brought the patient's medications on his own and gave it to the patient without the nurses knowledge resulting in the patient's blood pressure dropping acutely. He was asked to refrain from providing any medications without the nurses or doctor's consent. Patient was very belligerent and demanding regarding her pain medications and anxiety medications. Patient does suffer from PTSD and anxiety from traumatic childhood. Patient was counseled regarding her pain medications and anxiety medications. Patient is at risk for overdose due to her Dilaudid and benzodiazepines being taken together and I suspect opioid use disorder. She states that she has been on these medications for years. Patient is adamant about not changing her medications or decreasing her dose. I strongly recommend that she follow up with her shipyard painter to be weaned off of these medications and started on alternative medications for chronic pain. Patient complained of inability to urinate bladder scan showed 600 mL. She did require Huang catheter placement for her urinary retention. Huang catheter was removed and patient was able to void without any difficulty prior to discharge. Overall, the patient did well. Her breathing improved. Patient also had an elevated creatinine level, which improved with IV fluids. She was then cleared for discharge from Pulmonology standpoint to follow up with Dr. Crow as an outpatient to have biopsy set up. Patient also need to establish care with Oncology either locally or at [facility] for further staging and diagnosis. Once biopsy is done, she will need to follow up with her primary care physician in 2-3 days. Diet: Calorie-restricted diet. Activity: As tolerated. No driving or operating heavy machinery while on narcotics. Physical Examination: General: Awake, alert, and oriented x3. CV: S1, S2. Respiratory: Moving air well bilaterally. Abdomen: Soft, nontender, nondistended. Positive bowel sounds. Extremities: No clubbing, cyanosis, edema. Neurologic: Nonfocal. Total time spent discharging the patient was 34 minutes. KAHLIL Voice ID: [id number] Report ID: [id number] MIGUEL
[2019-03-03] MEDS ORDERED: FENTANYL 50 MCG/PATCH TD SCH (09:00)
== END 2019-03-02 14:08 | disposition home or self-care (01) | DRG 181 ==
LOC: ER 14:09 → ERHOLD 18:07 → 4TH 20:48
PROVIDERS: ADMIT Family Medicine; ATTEND Internal Medicine
DX: D49.1 Neoplasm of unspecified behavior of respiratory system (principal); N17.9 Acute kidney failure, unspecified; G89.4 Chronic pain syndrome; F41.9 Anxiety disorder, unspecified; R33.9 Retention of urine, unspecified; F43.10 Post-traumatic stress disorder, unspecified; K59.03 Drug induced constipation; T40.605A Adverse effect of unspecified narcotics, initial encounter; T46.5X1A Poisoning by other antihypertensive drugs, accidental (unintentional), initial encounter; I95.2 Hypotension due to drugs; Y92.230 Patient room in hospital as the place of occurrence of the external cause; Z88.0 Allergy status to penicillin; Z88.2 Allergy status to sulfonamides; Z91.14 Patient's other noncompliance with medication regimen
CPT/HCPCS: 36415; 51702; 71045; 71250; 74176; 80048; 80076; 80307; 80320; 80329; 81003; 83735; 85025; 93005; 94760; 96361; 96372; 96374; 99285; J2405; J2920; J7030; J7040

== ENCOUNTER 2019-04-20 19:51 | Inpatient (IN) | payer OTHER, SELFPAY ==
--- OUTSIDE RECORDS SUMMARY | 2019-04-20 19:54 | XMS REPORT ---
:1955 [facility] Address [address] [place] [address] Dr. Carter [address] [place] [id number] Care Team Providers Name Role Phone Unavailable Unavailable Unavailable Problems This patient has no known problems. Allergies, Adverse Reactions, Alerts This patient has no known allergies or adverse reactions. Medications This patient has no known medications.
[2019-04-20] MEDS ORDERED: ALBUTEROL 2.5 MG/3 ML NEB SOL ONE (20:47)
[2019-04-20] MEDS ORDERED: IPRATROPIUM BROM 0.5MG/2.5ML ONE (20:48)
[2019-04-20] MEDS ORDERED: HYDROCODONE/CHLORPHEN 5 ML/OSYR ONE (20:48)
[2019-04-20 21:41] LABS: Absolute Lymphocytes (CBC) 1.3 K/uL (0.7-4.9); Basophils % 0.8 % (0-1.3); Hematocrit 35.1 % (36.0-45.0); Lymphocytes % 23.2 % (15.3-44.8); MPV 7.4 fL (7.6-11.3); RBC Red Blood Cell Count 3.74 M/uL (3.86-4.86)
[2019-04-20] MEDS ORDERED: ONDANSETRON 4 MG/2 ML VIAL ONE (21:46)
[2019-04-20 21:56] LABS: Bilirubin Direct 0.2 mg/dL (0-0.2); Bilirubin Total 0.6 mg/dL (0.2-1.0); Potassium 3.9 mmol/L (3.5-5.1)
--- NOTE | 2019-04-20 22:55 | ER ---
Nurse's Notes [facility] Name: Lanny Bolton Age: 64 yrs Sex: Female : 1955 Arrival Date: 04/20/2019 Time: 19:55 Bed 16 Private MD: Diagnosis: Pneumonia, unspecified organism;Dehydration;Acute kidney injury;Vomiting Presentation: 04/20 20:01 Presenting complaint: Patient states: Shortness of breath cough, congestion, fever, aj1 nausea, and vomiting for the past 3 to 4 days. Transition of care: patient was not received from another setting of care. Onset of symptoms was 2019. Risk Assessment: Do you want to hurt yourself or someone else? Patient reports no desire to harm self or others. Initial Sepsis Screen: Does the patient meet any 2 criteria? No. Patient's initial sepsis screen is negative. Does the patient have a suspected source of infection? Yes: Productive cough/pneumonia. Care prior to arrival: None. 20:01 Method Of Arrival: Wheelchair aj1 20:01 Acuity: SAMREEN 3 aj1 Triage Assessment: 20:06 General: Appears uncomfortable, Behavior is calm, cooperative, appropriate for age. aj1 Pain: Complains of pain in chest Pain currently is 7 out of 10 on a pain scale. Neuro: Level of Consciousness is awake, alert, obeys commands. Cardiovascular: Patient's skin is warm and dry. Respiratory: Reports shortness of breath cough that is productive, Airway is patent Respiratory effort is even, unlabored, Respiratory pattern is regular, symmetrical. Historical: - Allergies: 20:06 Iodine; aj1 20:06 Sulfa (Sulfonamide Antibiotics); aj1 - Home Meds: 20:06 Ambien 10 mg Oral tab 1 tab once daily [Active]; Dilaudid 4 mg PO 1 tablet QID PRN pain aj1 [Active]; Inderal 40 mg DAILY [Active]; Propranolol Oral [Active]; trazodone 100 mg Oral tab 1 tab 3 times per day [Active]; Xanax 1 mg Oral tab 1 tab twice a day [Active]; Zanaflex 4 mg Oral tab 1 tab every 6 hours [Active]; - PMHx: 20:06 Anxiety; chronic back pain; Hypertension; irregular HR; mitral valve prolapse; PTSD; aj1 Seizures; - Immunization history:: Flu vaccine is not up to date. - Social history:: Smoking status: Patient/guardian denies using tobacco. - Ebola Screening: : Patient denies travel to an Ebola-affected area in the 21 days before illness onset. Screenin:10 Abuse screen: Denies threats or abuse. Denies injuries from another. Nutritional ca1 screening: No deficits noted. Tuberculosis screening: No symptoms or risk factors identified. Fall Risk Ambulatory Aid- Crutches/Cane/Walker (15 pts). Assessment: 20:10 General: Appears in no apparent distress. comfortable, Behavior is calm, cooperative, ca1 appropriate for age. General: Reports fever for > 3 days. Pain: Complains of pain in chest Pain does not radiate. Pain currently is 7 out of 10 on a pain scale. Pain began 2-3 days ago. Aggravated by coughing. Neuro: Level of Consciousness is. Cardiovascular: Heart tones S1 S2 present Capillary refill < 3 seconds Patient's skin is warm and dry. Respiratory: Reports cough that is Airway is patent Respiratory effort is even, unlabored, Respiratory pattern is regular, symmetrical, Breath sounds are clear bilaterally. GI: Abdomen is round non-distended, Bowel sounds present X 4 quads. Abd is soft and non tender X 4 quads. : No deficits noted. No signs and/or symptoms were reported regarding the genitourinary system. EENT: Reports nasal congestion. Derm: Skin is intact, is healthy with good turgor, Skin is pink, warm \T\ dry. Musculoskeletal: Circulation, motion, and sensation intact. Capillary refill < 3 seconds, Range of motion: intact in all extremities. 21:20 Reassessment: Patient appears in no apparent distress at this time. Patient and/or ca1 family updated on plan of care and expected duration. Pain level reassessed. Patient is alert, oriented x 3, equal unlabored respirations, skin warm/dry/pink. 22:30 Reassessment: Patient appears in no apparent distress at this time. No changes from wh previously documented assessment. Patient and/or family updated on plan of care and expected duration. Pain level reassessed. Patient is alert, oriented x 3, equal unlabored respirations, skin warm/dry/pink. 23:30 Reassessment: Patient appears in no apparent distress at this time. No changes from previously documented assessment. Patient and/or family updated on plan of care and expected duration. Pain level reassessed. Patient is alert, oriented x 3, equal unlabored respirations, skin warm/dry/pink. Provider at bedside explaining POC need for admit. 04/21 00:47 Reassessment: Patient appears in no apparent distress at this time. No changes from previously documented assessment. Patient and/or family updated on plan of care and expected duration. Pain level reassessed. Patient is alert, oriented x 3, equal unlabored respirations, skin warm/dry/pink. Vital Signs: 04/20 20:06 BP 162 / 68; Pulse 76; Resp 26; Temp 99.8; Pulse Ox 96% on R/A; Weight 101.6 kg (R); aj1 Height 5 ft. 6 in. (167.64 cm) (R); 21:20 BP 150 / 62; Pulse 70; Resp 17 S; Pulse Ox 94% on R/A; ca1 23:15 BP 157 / 73; Pulse 59; Temp 98.4(O); Pulse Ox 100% on 3 lpm NC; jp3 04/21 00:49 BP 135 / 55; Pulse 57; Resp 18; Pulse Ox 96% on R/A; wh 04/20 20:06 Body Mass Index 36.15 (101.60 kg, 167.64 cm) aj1 ED Course: 04/20 19:55 Patient arrived in ED. es 20:05 Triage completed. aj1 20:06 Arm band placed on Patient placed in an exam room. aj1 20:10 Patient has correct armband on for positive identification. Placed in gown. Bed in low ca1 position. Call light in reach. Side rails up X2. Pulse ox on. NIBP on. Warm blanket given. 20:10 No provider procedures requiring assistance completed. ca1 20:11 Carla Garcia, NERY is Primary Nurse. ca1 20:16 Kobe Patterson NP is PHCP. pm1 20:16 Avery Juarez MD is Attending Physician. pm1 20:51 Strep Sent. ca1 20:51 Flu Sent. ca1 20:56 Radiology exam delayed due to patient receiving breathing treatment at this time. nj 21:10 Primary Nurse role handed off by Carla Garcia RN 21:10 Uriel Gomez is Primary Nurse. 21:25 Inserted 18 gauge 10 cm midline to right upper basilic vein on first attempt. Line with fc good blood return and flushes well. 21:29 Initial lab(s) drawn, by ED staff, sent to lab. First set of blood cultures drawn by ED ca1 staff. 21:53 CT Chest Wo Con In Process Unspecified. EDMS 23:13 Cindy White MD is Hospitalizing Provider. pm1 23:52 Warm blanket given. Verbal reassurance given. 3 23:52 Lights dimmed. Linen changed. 3 04/21 00:46 Patient admitted, IV remains in place. Administered Medications: 04/20 20:51 Drug: Tussionex Pennkinetic ER 5 ml Route: PO; 21:45 Follow up: Response: No adverse reaction; RASS: Alert and Calm (0) 20:52 Drug: Albuterol - atroVENT (3:1) (2.5 mg - 0.5 mg) 3 ml Route: Nebulizer; 21:46 Follow up: Response: No adverse reaction 21:47 Drug: Zofran 4 mg Route: IVP; Site: right antecubital; 23:21 Follow up: Response: No adverse reaction 23:10 Drug: Rocephin 1 grams Route: IV; Rate: calculated rate; Site: right antecubital; 23:22 Follow up: Response: No adverse reaction; IV Status: Completed infusion 23:10 Drug: Zithromax 500 mg Route: PO; 23:22 Follow up: Response: No adverse reaction 23:22 Drug: NS 0.9% 1000 ml {Note: LYDIA Midline.} Route: IV; Rate: 1000 ml; Site: Other; 04/21 00:17 Follow up: Response: No adverse reaction; IV Status: Completed infusion 00:18 Drug: NS 0.9% 1000 ml Route: IV; Rate: 100 ml/hr; Site: right antecubital; 00:50 Follow up: Response: No adverse reaction; IV Status: Infusion continued upon admission Outcome: 04/20 22:54 Discharge ordered by . pm1 23:13 Decision to Hospitalize by Provider. pm1 04/21 00:46 Admitted to ER Hold. Please see [facility] for further documentation. Condition: stable Instructed on the need for admit. 17:15 Patient left the ED. bp Signatures: Dispatcher [employer] EDJackelin Edgar, RN RN aj1 Laura Juan Felicia, RN RN fc Kobe Patterson, SVP OF [employer] SVP [employer] pm1 Napoleon Landeros Winsy wh Peltier, Brian RN RN bp Nabeel Fox jp3 Carla Garcia RN RN ca1
--- NOTE | 2019-04-20 22:55 | EDPHYS ---
Physician Documentation [facility] Name: Lanny Bolton Age: 64 yrs Sex: Female : 1955 Arrival Date: 04/20/2019 Time: 19:55 Bed 16 Private MD: ED Physician Avery Juarez HPI: 04/20 20:39 This 64 yrs old Female presents to ER via Wheelchair with complaints of pm1 Congestion, Cough, Fever. 20:39 The patient or guardian reports cough, with productive sputum, that is green. Onset: pm1 The symptoms/episode began/occurred 3 day(s) ago. Severity of symptoms: in the emergency department the symptoms are actually worse. Modifying factors: The symptoms are alleviated by nothing, the symptoms are aggravated by nothing. Associated signs and symptoms: Pertinent positives: fever, sore throat, Pertinent negatives: chest pain, ear ache, nausea, vomiting. February 2019: diagnosed with left lung mass. The patient has not recently seen a physician. 20:39 Associated signs and symptoms: Pertinent positives: vomiting. pm1 20:39 TMAX 100.3. pm1 Historical: - Allergies: 20:06 Iodine; aj1 20:06 Sulfa (Sulfonamide Antibiotics); aj1 - Home Meds: 20:06 Ambien 10 mg Oral tab 1 tab once daily [Active]; Dilaudid 4 mg PO 1 tablet QID PRN pain aj1 [Active]; Inderal 40 mg DAILY [Active]; Propranolol Oral [Active]; trazodone 100 mg Oral tab 1 tab 3 times per day [Active]; Xanax 1 mg Oral tab 1 tab twice a day [Active]; Zanaflex 4 mg Oral tab 1 tab every 6 hours [Active]; - PMHx: 20:06 Anxiety; chronic back pain; Hypertension; irregular HR; mitral valve prolapse; PTSD; aj1 Seizures; - Immunization history:: Flu vaccine is not up to date. - Social history:: Smoking status: Patient/guardian denies using tobacco. - Ebola Screening: : Patient denies travel to an Ebola-affected area in the 21 days before illness onset. ROS: 21:35 Eyes: Negative for injury, pain, redness, and discharge. pm1 21:35 Neck: Negative for injury, pain, and swelling, Cardiovascular: Negative for chest pain, palpitations, and edema. 21:35 Abdomen/GI: Negative for abdominal pain, diarrhea, and constipation, Positive for vomiting and nausea Back: Negative for injury and pain, : Negative for injury, bleeding, discharge, and swelling, MS/Extremity: Negative for injury and deformity, Skin: Negative for injury, rash, and discoloration, Neuro: Negative for headache, weakness, numbness, tingling, and seizure. 21:35 Constitutional: Positive for fever. 21:35 ENT: Positive for sore throat, Negative for drainage from ear(s), ear pain. 21:35 Respiratory: Positive for cough, with green sputum, shortness of breath, wheezing. Exam: 21:35 Constitutional: This is a well developed, well nourished patient who is awake, alert, pm1 and in no acute distress. Head/Face: Normocephalic, atraumatic. Eyes: Pupils equal round and reactive to light, extra-ocular motions intact. Lids and lashes normal. Conjunctiva and sclera are non-icteric and not injected. Cornea within normal limits. Periorbital areas with no swelling, redness, or edema. ENT: Nares patent. No nasal discharge, no septal abnormalities noted. Tympanic membranes are normal and external auditory canals are clear. Oropharynx with no redness, swelling, or masses, exudates, or evidence of obstruction, uvula midline. Mucous membranes moist. Neck: Trachea midline, no thyromegaly or masses palpated, and no cervical lymphadenopathy. Supple, full range of motion without nuchal rigidity, or vertebral point tenderness. No Meningismus. Chest/axilla: Normal chest wall appearance and motion. Nontender with no deformity. No lesions are appreciated. Cardiovascular: Regular rate and rhythm with a normal S1 and S2. No gallops, murmurs, or rubs. Normal PMI, no JVD. No pulse deficits. Abdomen/GI: Soft, non-tender, with normal bowel sounds. No distension or tympany. No guarding or rebound. No evidence of tenderness throughout. 21:35 Back: No spinal tenderness. No costovertebral tenderness. Full range of motion. Skin: Warm, dry with normal turgor. Normal color with no rashes, no lesions, and no evidence of cellulitis. MS/ Extremity: Pulses equal, no cyanosis. Neurovascular intact. Full, normal range of motion. 21:35 Respiratory: the patient does not display signs of respiratory distress, Respirations: normal, Breath sounds: wheezing: expiratory is heard diffusely. 21:35 Neuro: Orientation: is normal, Mentation: is normal, Motor: is normal, moves all fours. Vital Signs: 20:06 BP 162 / 68; Pulse 76; Resp 26; Temp 99.8; Pulse Ox 96% on R/A; Weight 101.6 kg (R); aj1 Height 5 ft. 6 in. (167.64 cm) (R); 21:20 BP 150 / 62; Pulse 70; Resp 17 S; Pulse Ox 94% on R/A; ca1 23:15 BP 157 / 73; Pulse 59; Temp 98.4(O); Pulse Ox 100% on 3 lpm NC; jp3 04/21 00:49 BP 135 / 55; Pulse 57; Resp 18; Pulse Ox 96% on R/A; wh 04/20 20:06 Body Mass Index 36.15 (101.60 kg, 167.64 cm) aj1 MDM: 04/20 20:17 Patient medically screened. pm1 22:44 Data reviewed: vital signs. Data interpreted: Pulse oximetry: on room air is 96 %. pm1 Interpretation: normal. 22:53 Counseling: I had a detailed discussion with the patient and/or guardian regarding: the pm1 historical points, exam findings, and any diagnostic results supporting the discharge/admit diagnosis, lab results, radiology results, the need for outpatient follow up, to return to the emergency department if symptoms worsen or persist or if there are any questions or concerns that arise at home. 23:10 Counseling: I had a detailed discussion with the patient and/or guardian regarding: pm1 radiology results, Radiologist in [facility] does not have prior images for comparison. Masses in chest do not appear to have significantly changed based on measurements per CT. Discussed need for staging and evaluation by oncology. 23:12 ED course: Patient does not feel comfortable going home. Would like to stay in the pm1 hospital because she does not feel that she would be able to keep medications down. 04/20 20:34 Order name: Flu; Complete Time: 21:20 pm1 04/20 20:34 Order name: Strep; Complete Time: 21:20 pm1 04/20 20:34 Order name: Basic Metabolic Panel; Complete Time: 21:59 pm1 04/20 20:34 Order name: Blood Culture Adult (2) pm1 04/20 20:34 Order name: CBC with Diff; Complete Time: 21:54 pm1 04/20 20:34 Order name: LFT's; Complete Time: 21:59 pm1 04/20 20:34 Order name: Procalcitonin; Complete Time: 22:16 pm1 04/20 21:18 Order name: Throat Culture EDMS 04/21 00:47 Order name: Lactate; Complete Time: 11:12 EDMS 04/21 00:47 Order name: Lipid Profile; Complete Time: 11:12 EDMS 04/21 00:48 Order name: Magnesium; Complete Time: 11:12 EDMS 04/21 00:48 Order name: Phosphorus; Complete Time: 11:12 EDMS 04/21 00:48 Order name: NT PRO-BNP; Complete Time: 11:12 EDMS 04/21 05:05 Order name: Basic Metabolic Panel; Complete Time: 11:12 EDMS 04/20 20:34 Order name: CT Chest Wo Con pm04/20 20:34 Order name: Labs collected and sent; Complete Time: 21:29 pm1 04/21 00:47 Order name: Regular EDMS Administered Medications: 20:51 Drug: Tussionex Pennkinetic ER 5 ml Route: PO; 21:45 Follow up: Response: No adverse reaction; RASS: Alert and Calm (0) 20:52 Drug: Albuterol - atroVENT (3:1) (2.5 mg - 0.5 mg) 3 ml Route: Nebulizer; 21:46 Follow up: Response: No adverse reaction 21:47 Drug: Zofran 4 mg Route: IVP; Site: right antecubital; 23:21 Follow up: Response: No adverse reaction 23:10 Drug: Rocephin 1 grams Route: IV; Rate: calculated rate; Site: right antecubital; 23:22 Follow up: Response: No adverse reaction; IV Status: Completed infusion 23:10 Drug: Zithromax 500 mg Route: PO; 23:22 Follow up: Response: No adverse reaction 23:22 Drug: NS 0.9% 1000 ml {Note: LYDIA Midline.} Route: IV; Rate: 1000 ml; Site: Other; 04/21 00:17 Follow up: Response: No adverse reaction; IV Status: Completed infusion 00:18 Drug: NS 0.9% 1000 ml Route: IV; Rate: 100 ml/hr; Site: right antecubital; 00:50 Follow up: Response: No adverse reaction; IV Status: Infusion continued upon admission Disposition: 19:03 Co-signature as Attending Physician, Avery Juarez MD Available for consultation at ps1 all times. Signing chart for administrative purposes. Not an endorsement of care. . Disposition: 04/20/19 23:13 Hospitalization ordered by Cindy White for Observation. Preliminary diagnosis are Pneumonia, unspecified organism, Dehydration, Acute kidney injury, Vomiting. - Bed requested for Telemetry/MedSurg (observation). - Status is Observation. bp - Condition is Stable. - Problem is new. - Symptoms have improved. UTI on Admission? No Signatures: Dispatcher [employer] EDLA Jakcelin Coelho RN RN aj1 Trish Stout RN RN Naomi Valladares RN RN dw Marinas, Patrick, NP [employer] pm1 Uriel Gomez Judson Briones RN RN bp Singer, Phillip, MD MD ps1 Corrections: (The following items were deleted from the chart) 04/20 23:07 22:54 04/20/2019 22:54 Discharged to Home. Impression: Pneumonia, unspecified organism. pm1 Condition is Stable. Discharge Instructions: Community-Acquired Pneumonia, Adult. Prescriptions for Zithromax Z-Guru 250 mg Oral Tablet - take 1 tablet by ORAL route as directed for 5 days Day 1 - take two (2) tablets one time. Day 2, 3, 4 , 5 take one (1) tablet once daily.; 6 tablet, Albuterol Sulfate 90 mcg/actuation - inhale 1-2 puff by INHALATION route every 4-6 hours; 1 Inhaler, Guaifenesin AC 10-100 mg/5 mL Oral Liquid - take 10 milliliter by ORAL route every 4 hours As needed; 240 milliliter. and Forms are Medication Reconciliation Form, Thank You Letter, Antibiotic Education, Prescription Opioid Use. Follow up: Emergency Department; When: As needed; Reason: Worsening of condition. Follow up: Private Physician; When: 2 - 3 days; Reason: Recheck today's complaints, Continuance of care, Re-evaluation by your physician. Problem is new. Symptoms have improved. pm1 23:14 23:13 Hospitalization Ordered by Cindy White MD for Observation. Preliminary pm1 diagnosis is Pneumonia, unspecified organism. Bed requested for Telemetry/MedSurg (observation). Status is Observation. Condition is Stable. Problem is new. Symptoms have improved. UTI on Admission? No. pm1 23:16 21:35 Abdomen/GI: Negative for abdominal pain, nausea, vomiting, diarrhea, and pm1 constipation, Back: Negative for injury and pain, : Negative for injury, bleeding, discharge, and swelling, MS/Extremity: Negative for injury and deformity, Skin: Negative for injury, rash, and discoloration, Neuro: Negative for headache, weakness, numbness, tingling, and seizure, pm1 04/21 00:27 01 23:14 04/20/2019 23:13 Hospitalization Ordered by Cindy White MD for Observation. Preliminary diagnosis is Pneumonia, unspecified organism; Dehydration; Acute kidney injury; Vomiting. Bed requested for Telemetry/MedSurg (observation). Status is Observation. Condition is Stable. Problem is new. Symptoms have improved. UTI on Admission? No. pm1 04/21 12:58 00:27 04/20/2019 23:13 Hospitalization Ordered by Cindy White MD for Observation. dw Preliminary diagnosis is Pneumonia, unspecified organism; Dehydration; Acute kidney injury; Vomiting. Bed requested for [facility] ER HOLD. Status is Observation. Condition is Stable. Problem is new. Symptoms have improved. UTI on Admission? No. mw 17:15 12:58 04/20/2019 23:13 Hospitalization Ordered by Cindy White MD for Observation. bp Preliminary diagnosis is Pneumonia, unspecified organism; Dehydration; Acute kidney injury; Vomiting. Bed requested for Telemetry/MedSurg (observation). Status is Observation. Condition is Stable. Problem is new. Symptoms have improved. UTI on Admission? No. dw
[2019-04-20] MEDS ORDERED: AZITHROMYCIN 250 MG TAB ONE (23:08)
[2019-04-20] MEDS ORDERED: CEFTRIAXONE/SWI 1gm 1 GM/10 ML SYR ONE (23:08)
[2019-04-20] MEDS ORDERED: NA CHLORIDE 0.9% 2,000 ML ONE (23:32)
[2019-04-20] MEDS: NA CHLORIDE 0.9% 1,000 ML IV SCH (23:45)
[2019-04-20] MEDS ORDERED: ONDANSETRON 4 MG/2 ML VIAL IV PRN (23:59)
[2019-04-20] MEDS ORDERED: ACETAMINOPHEN 500 MG TAB PO PRN (23:59)
[2019-04-20] MEDS ORDERED: MAGNESIUM HYDROXIDE 8% 30 ML PO PRN (23:59)
[2019-04-21 01:11] VITALS: BMI 36.1
[2019-04-21] MEDS ORDERED: SUMATRIPTAN SUCCI 50 MG TAB PO PRN (02:01)
[2019-04-21] MEDS ORDERED: METHYLPREDNISOLONE 125 MG INJ IV ONE (02:04)
[2019-04-21] MEDS ORDERED: ALBUTEROL 2.5 MG/3 ML NEB SOL NEB ONE (02:04)
[2019-04-21] MEDS ORDERED: HYDROCORTISONE SUC 100 MG INJ ONE (04:00)
[2019-04-21] MEDS ORDERED: ALBUTEROL 2.5 MG/3 ML NEB SOL ONE ×3 (04:18→15:35)
[2019-04-21 05:04] LABS: Potassium 4.1 mmol/L (3.5-5.1)
[2019-04-21 05:15] LABS: Magnesium 1.9 mg/dL (1.8-2.4); Phosphorus 3.7 mg/dL (2.5-4.9)
[2019-04-21] MEDS: HYDROCODONE/CHLORPHEN 5 ML/OSYR PO PRN ×2 (05:20→19:28)
--- NOTE | 2019-04-21 08:19 | P.HP ---
Certification for Inpatient Patient admitted to: Inpatient With expected LOS: >2 Midnights Patient will require the following post-hospital care: None Practitioner: I am a practitioner with admitting privileges, knowledge of patient current condition, hospital course, and medical plan of care. Services: Services provided to patient in accordance with Admission requirements found in Title 42 Section 412.3 of the Code of Federal Regulations Patient History Date of Service: 04/21/19 Reason for admission: Cough and shortness of breath/left upper lobe mass History of Present Illness: Patient is a 64-year-old female came to the hospital with persistent coughing congestion. She is not able to bring up any phlegm. She has been running fever and she is having shakes and chills. She says she had a sore throat. She came into the emergency room for further evaluation. In the ER she had a CT scan which revealed left upper lobe mass with mediastinal lymphadenopathy. Patient history prior tobacco use. She is having a lot of upper airway noise. However , in light of the findings on the CT scan will admit to the hospital for further treatment recommendation. Patient be admitted to the hospital for further evaluation. Allergies ciprofloxacin [From Cipro] Allergy (Verified 04/21/19 00:43) Anaphylaxis ciprofloxacin HCl [From Cipro] Allergy (Verified 04/21/19 00:43) Anaphylaxis iodine-123 Adverse Reaction (Intermediate, Verified 04/21/19 00:43) Itching/Hives/Rash Sulfa (Sulfonamide Antibiotics) [Sulfa(Sulfonamide Antibiotics)] Adverse Reaction (Intermediate, Verified 04/21/19 00:43) Shortness of breath Cipro PO Allergy (Uncoded 04/21/19 00:43) Anaphylaxis SULFA (SULFONAMIDES) Allergy (Uncoded 04/21/19 00:43) Anaphylaxis - Past Medical/Surgical History Has patient received pneumonia vaccine in the past: No Diabetic: No -: HTN -: Asthma -: seizures -: PTSD -: anxiety -: chronic back pain -: osteoarthritis -: mitral valve prolapse -: irregular hr -: Cholecystectomy -: Neck surgeries x3 -: -: Hysterectomy -: Amputation of ring finger L Hand -: Bowel reconstructive surgery (tubal ligation infection) - Family History Father Medical History: Lung disease, Cancer Notes: brain ca Mother Medical History: Cancer Notes: colon ca Sister Medical History: Cancer Notes: cervical ca - Social History Smoking Status: Former smoker Alcohol use: No CD- Drugs: No Caffeine use: Yes Place of Residence: Home Review of Systems 10-point ROS is otherwise unremarkable Physical Examination - Vital Signs Temperature: 98.4 F Blood Pressure: 107/43 Pulse: 61 Respirations: 18 Pulse Ox (%): 97 - Physical Exam General: Alert, In no apparent distress HEENT: Atraumatic, PERRLA, Mucous membr. moist/pink, EOMI, Sclerae nonicteric Neck: Supple, 2+ carotid pulse no bruit, No LAD, Without JVD or thyroid abnormality Respiratory: Clear to auscultation bilaterally, Normal air movement, Other ( Upper airway wheezing) Cardiovascular: Regular rate/rhythm, Normal S1 S2 Gastrointestinal: Normal bowel sounds, Soft and benign, Non-distended, No tenderness, No rebound, No guarding Musculoskeletal: No clubbing, No swelling, No tenderness Integumentary: No rashes Neurological: Normal gait, Normal speech, Normal strength at 5/5 x4 extr, Normal tone, Sensation intact, Cranial nerves 3-12 intact, Normal affect Lymphatics: No axilla or inguinal lymphadenopathy - Studies Laboratory Data (last 24 hrs) 04/20/19 21:26: WBC 5.8, Hgb 11.8 L, Hct 35.1 L, Plt Count 228 04/20/19 21:26: Sodium 137, Potassium 3.9, BUN 28 H, Creatinine 1.98 H, Glucose 114 H, Total Bilirubin 0.6, AST 76 H, ALT 130 H, Alkaline Phosphatase 123 H Microbiology Data (last 24 hrs): 04/20/19 22:21 Blood - Blood Anaerobic Blood Culture - Final 04/20/19 20:30 Throat Group A Streptococcus Rapid Screen - Final 04/20/19 20:30 Nasopharnyx Influenza Type A Antigen Screen - Final 04/20/19 20:30 Nasopharnyx Influenza Type B Antigen Screen - Final Assessment & Plan - Problems (Diagnosis) (1) Mass of upper lobe of left lung Current Visit: Yes Status: Acute (2) Fever Current Visit: Yes Status: Acute (3) Cough Current Visit: Yes Status: Acute (4) Acute bronchitis Current Visit: Yes Status: Acute - Plan 1. Continue with IV antibiotics 2. Pulmonary consultation 3. Continue with nebs as needed 4. O2 per protocol 5. Continue with gentle hydration 6. Repeat labs for further evaluation 7. GI and DVT prophylaxis Discharge Plan: Home Plan to discharge in: Greater than 2 days - Advance Directives Does patient have a Living Will: No Does patient have a Durable POA for Healthcare: No - Code Status/Comfort Care Code Status Assessed: Yes Code Status: Full Code Critical Care: No Time Spent Managing PTS Care (In Minutes): 45
[2019-04-21] MEDS ORDERED: IPRATROPIUM BROM 0.5MG/2.5ML ONE ×2 (08:34→15:35)
[2019-04-21] MEDS: ALBUTEROL 2.5 MG/3 ML NEB SOL NEB SCH ×3 (08:34→21:55)
[2019-04-21] MEDS: IPRATROPIUM BROM 0.5MG/2.5ML NEB SCH ×3 (08:34→21:55)
[2019-04-21] MEDS ORDERED: ENOXAPARIN 40 MG/0.4 ML SQ ONE (08:45)
[2019-04-21] MEDS: ENOXAPARIN 40 MG/0.4 ML SQ SCH (09:00)
[2019-04-21] MEDS ORDERED: CEFTRIAXONE 1 GM/NS 50 ML 1 GM/50 ML BAG IV SCH (09:00)
[2019-04-21] MEDS: CEFTRIAXONE/SWI 1gm 1 GM/10 ML SYR IV SCH ×2 (12:15→22:28)
[2019-04-21] MEDS: NA CHLORIDE 0.9% 1,000 ML IV SCH ×2 (12:15→16:59)
[2019-04-21] MEDS ORDERED: CEFTRIAXONE/SWI 1gm 1 GM/10 ML SYR ONE (12:30)
[2019-04-21] MEDS ORDERED: NA CHLORIDE 0.9% 1,000 ML ONE (12:30)
[2019-04-21] MEDS ORDERED: INFLUENZA VACCINE (for 3y+) 0.5 ML DOSE IMVAC ONE (13:00)
--- NOTE | 2019-04-21 14:50 | EKG ---
Test Date: 2019-04-21 Test Time: 05:29:52 [employer] Straightener Stamper: PEYTON MEASUREMENT RESULTS: Intervals: Rate: 70 LA: 206 QRSD: 100 QT: 386 QTc: 416 [place]: P: 56 LA: 206 QRS: 46 T: 7 INTERPRETIVE STATEMENTS: Normal sinus rhythm Normal ECG Compared to ECG 02/28/2019 15:51:07 Atrial premature complex(es) no longer present T-wave abnormality no longer present Possible ischemia no longer present Electronically Signed On 04-21-19 14:50:09 [facility] STRIPPER by Hermes Iniguez
[2019-04-21] MEDS ORDERED: AZITHROMYCIN IV 500 MG in NA CHLORIDE 0.9% 250 ML IVPB SCH (21:00)
[2019-04-22 01:03] LABS: Urine Appearance CLEAR; Urine Bilirubin NEGATIVE (NEG); Urine Blood NEGATIVE (NEG); Urine Color YELLOW; Urine Glucose NEGATIVE (NEG); Urine Protein NEGATIVE (NEG); Urine Urobilinogen 0.2 mg/dL (0.2-1.0); Urine pH 5.5 (5.0-7.0)
[2019-04-22 01:20] LABS: Urine Microscopic Reflex NO UMIC
[2019-04-22] MEDS: IPRATROPIUM BROM 0.5MG/2.5ML NEB SCH ×4 (03:03→20:25)
[2019-04-22] MEDS: ALBUTEROL 2.5 MG/3 ML NEB SOL NEB SCH ×4 (03:03→20:25)
[2019-04-22] MEDS ORDERED: MORPHINE 4 MG/ML SYR IV ONE (03:33)
[2019-04-22] MEDS: HYDROCODONE/CHLORPHEN 5 ML/OSYR PO PRN ×2 (04:00→14:03)
[2019-04-22] MEDS: NA CHLORIDE 0.9% 1,000 ML IV SCH ×2 (04:00→05:45)
[2019-04-22] MEDS ORDERED: MEPERIDINE HCL 25 MG/0.5 ML IV ONE (05:49)
[2019-04-22] MEDS ORDERED: PROMETHAZINE INJ 25 MG/ML AMP IV ONE (05:49)
[2019-04-22] MEDS ORDERED: HYDROCORTISONE SUC 100 MG INJ IV ONE (05:50)
[2019-04-22 06:09] LABS: Albumin 3.1 g/dL (3.4-5.0); Bilirubin Total 0.3 mg/dL (0.2-1.0); Potassium 3.7 mmol/L (3.5-5.1); Protein, Total 6.7 g/dL (6.4-8.2)
[2019-04-22 06:15] LABS: Absolute Lymphocytes (CBC) 2.1 K/uL (0.7-4.9); Basophils % 1.1 % (0-1.3); Hematocrit 32.4 % (36.0-45.0); Lymphocytes % 34.8 % (15.3-44.8); MPV 7.6 fL (7.6-11.3); RBC Red Blood Cell Count 3.47 M/uL (3.86-4.86)
[2019-04-22] MEDS: CEFTRIAXONE/SWI 1gm 1 GM/10 ML SYR IV SCH (08:55)
[2019-04-22] MEDS: ENOXAPARIN 40 MG/0.4 ML SQ SCH (08:55)
[2019-04-22] MEDS ORDERED: POTASSIUM 25 MEQ EFFERV TAB PO ONE (09:00)
--- NOTE | 2019-04-22 10:21 | P.CNS ---
Date of Consult: 04/22/19 Chief Complaint: Cough and shortness of breath/left upper lobe mass History of Present Illness: DE 17 as some pulmonary complaints with a left upper lobe lung mass came to the hospital a gain worse shortness of breath cough congestion the recovered since last discharge has some fever pain has this left upper lobe lung mass prior history of asthma as a child still has some dyspnea on exertion possibly underlying obstructive airways disease the patient did not purchase any long- acting bronchodilators also complaining of some chest pain Allergies ciprofloxacin [From Cipro] Allergy (Verified 04/21/19 00:43) Anaphylaxis ciprofloxacin HCl [From Cipro] Allergy (Verified 04/21/19 00:43) Anaphylaxis iodine-123 Adverse Reaction (Intermediate, Verified 04/21/19 00:43) Itching/Hives/Rash Sulfa (Sulfonamide Antibiotics) [Sulfa(Sulfonamide Antibiotics)] Adverse Reaction (Intermediate, Verified 04/21/19 00:43) Shortness of breath Cipro PO Allergy (Uncoded 04/21/19 00:43) Anaphylaxis SULFA (SULFONAMIDES) Allergy (Uncoded 04/21/19 00:43) Anaphylaxis Home Medications: Alprazolam [Xanax] 1 mg PO BID 04/21/19 Hydromorphone [Dilaudid*] 1 tab PO Q6HR 04/21/19 Olmesartan Medoxomil 40 mg PO DAILY 04/21/19 Propranolol [Inderal] 40 mg PO DAILY 04/21/19 Tizanidine HCl [Zanaflex] 4 mg PO Q6HR 04/21/19 Trazodone HCl 100 mg PO TID 04/21/19 Zolpidem Tartrate [Ambien] 10 mg PO BEDTIME 04/21/19 - Past Medical/Surgical History Diabetic: No -: HTN -: Asthma -: seizures -: PTSD -: anxiety -: chronic back pain -: osteoarthritis -: mitral valve prolapse -: irregular hr -: Cholecystectomy -: Neck surgeries x3 -: -: Hysterectomy -: Amputation of ring finger L Hand -: Bowel reconstructive surgery (tubal ligation infection) - Family History Father Medical History: Lung disease, Cancer Notes: brain ca Mother Medical History: Cancer Notes: colon ca Sister Medical History: Cancer Notes: cervical ca - Social History Smoking Status: Unknown if ever smoked Alcohol use: No CD- Drugs: No Caffeine use: Yes Place of Residence: Home Review of Systems Unremarkable Respiratory: Cough, Shortness of Breath Physical Examination Temp Pulse Resp BP Pulse Ox 98.4 F 55 15 137/66 91 04/22/19 08:00 04/22/19 08:00 04/22/19 08:00 04/22/19 08:00 04/22/19 08:00 General: Alert, Oriented x3 Neck: Supple Respiratory: Clear to auscultation bilaterally Cardiovascular: No edema, Regular rate/rhythm, Normal S1 S2 - Problems (1) Mass of upper lobe of left lung Current Visit: Yes Status: Acute Plan: Patient is 64 years of age admitted with cough congestion shortness of breath probably underlying obstructive airways disease quit smoking 30 years ago I recommend treatment with prednisone bronchodilator also are have scheduled her for a bronchoscopy discussed with the patient's the risk of bronchoscopy including bleeding infection and lung collapse agrees PT INR ordered mildly anemic labs unremarkable Dc antibiotics vital signs stable
[2019-04-22] MEDS: predniSONE 20 MG TAB PO SCH ×2 (11:24→20:36)
[2019-04-22 11:34] LABS: Protime INR 1.2
[2019-04-22] MEDS: DULERA 200/5 (MOMETASONE/FORMOTEROL) INHALER IH SCH ×2 (12:07→20:36)
--- NOTE | 2019-04-22 12:50 | EKG ---
Test Date: 2019-04-21 Test Time: 08:08:41 Payroll Benefits Administrator: SHANDA MEASUREMENT RESULTS: Intervals: Rate: 56 GA: 216 QRSD: 102 QT: 416 QTc: 401 [place]: P: 30 GA: 216 QRS: 55 T: 15 INTERPRETIVE STATEMENTS: Sinus bradycardia with 1st degree AV block Otherwise normal ECG Compared to ECG 04/21/2019 05:29:52 First degree AV block now present Sinus rhythm no longer present Electronically Signed On 04-22-19 12:48:29 [facility] by Hermes Iniguez
--- NOTE | 2019-04-22 15:32 | PN ---
History Of Present Illness: Patient is currently lying in bed. She looks comfortable. She has no c hest pain or abdominal pain. Overnight, she has severe migraine which was relieved by Demerol. She denies any nausea or vomiting. Review of Systems: Otherwise negative. Physical Examination: Vital Signs: Blood pressure 137/66, respiratory rate 15, pulse 55, temperature 98.4, saturating 94% on 2 L nasal cannula. General: She is alert and oriented x3. She does not look in any distress. HEENT: Atraumatic, normocephalic. PERRLA. Oral mucosa is moist. Neck: Supple. No JVD. No carotid bruits. Chest: Clear to auscultation bilaterally. No expiratory wheezing. Heart: Regular rate and rhythm. S1, S2 normal. No gallop or murmur. Abdomen: Soft, nontender. No masses. No hepatosplenomegaly. Positive bowel sounds. Extremities: No clubbing, cyanosis, or edema. No calf tenderness. Neurologic: Grossly intact. Cranial nerve exam 2 through 12 intact. Normal sensation. Normal refl exes. Normal muscle strength. Laboratory Data: Today, CBC within normal except for hemoglobin of 11. Chemistry within normal exce pt for GFR of 58. Assessment And Plan: 1.Left upper lobe lung mass with extensive history of smoking. Mass is very suspicious for malignan cy. Dr. Crow will proceed with bronchoscopy and biopsy hopefully and most likely patient will ne ed oncology followup as outpatient for further workup for her possible malignancy. 2.Chronic obstructive pulmonary disease exacerbation. Patient was started on antibiotic as well as steroid as regulatory during the steroid down to prednisone 20 mg twice a day as well as an inhaler a nd she stopped the antibiotic as she does not believe there is an acute infection at this point. 3.Acute renal failure, resolved with hydration. GFR almost normal at 58. Encourage oral intake. 4.Severe migraine. She is on Imitrex p.r.n. 5.Deep vein thrombosis prophylaxis, on Lovenox. 6.Plan for discharge after bronchoscopy hopefully and patient will follow up as outpatient for her p athology result. MT/MODL Voice ID: [id number] Report ID: [id number]
[2019-04-23] MEDS: ALBUTEROL 2.5 MG/3 ML NEB SOL NEB SCH ×3 (02:40→14:35)
[2019-04-23] MEDS: IPRATROPIUM BROM 0.5MG/2.5ML NEB SCH ×3 (02:40→14:35)
[2019-04-23] MEDS: HYDROCODONE/CHLORPHEN 5 ML/OSYR PO PRN (04:32)
[2019-04-23 05:07] LABS: Potassium 3.7 mmol/L (3.5-5.1)
[2019-04-23] MEDS: ENOXAPARIN 40 MG/0.4 ML SQ SCH (07:36)
[2019-04-23] MEDS ORDERED: POTASSIUM 25 MEQ EFFERV TAB PO ONE (09:00)
[2019-04-23] MEDS: DULERA 200/5 (MOMETASONE/FORMOTEROL) INHALER IH SCH (09:00)
[2019-04-23] MEDS: predniSONE 20 MG TAB PO SCH (09:00)
[2019-04-23] MEDS ORDERED: LIDOCAINE 1% MPF 30 ML VIAL ONE ×2 (11:29→12:09)
[2019-04-23] MEDS ORDERED: Phenylephrine HCl 10 MG/ML 1 ML VIAL ONE (11:29)
[2019-04-23] MEDS ORDERED: GLYCOPYRROLATE 0.2 MG/ML SYR ONE (11:29)
[2019-04-23] MEDS ORDERED: Ringers Lactate 1,000 ML IV ONE (11:31)
[2019-04-23] MEDS: LIDOCAINE 4% TOP SOLUTION ONE ×2 (11:35→11:55)
[2019-04-23] MEDS ORDERED: propofoL 200 MG/20 ML VIAL IV ONE (12:07)
[2019-04-23] MEDS ORDERED: LIDOCAINE JELLY 2%- 5 ML TUBE ONE ×2 (12:08→12:11)
[2019-04-23] MEDS ORDERED: MIDAZOLAM HCL 2 MG/2 ML INJ ONE (12:09)
[2019-04-23] MEDS ORDERED: FENTANYL CITR 100 MCG/2 ML ONE (12:10)
--- NOTE | 2019-04-23 12:49 | P.OP ---
Date of Service: 04/23/19 Findings and Operative Technique Patient is 64 years of age presented with left lung mass has a reason for bronchoscopy Narrative report after obtaining informed consent from the patient she was premedicated by anesthesia Finding and essentially normal bronchoscopy no endobronchial lesions tia as all normal the mass was not visible on the bronchoscope and did multiple biopsies wire brushing and a BAL patient tolerated the procedure very well did not experience any episodes of hypoxemia are hypertension Discuss with the patient's she needs to follow up with me may need an FNA will arrange for an outpatient PET scan patient has had an MRI will also need outpatient pulmonary function testing is probably a good candidate for surgical resection stable to be discharged home continue with Arthur
--- NOTE | 2019-04-23 13:30 | P.DS ---
Admission Date: 04/21/19 Discharge Date: 04/23/19 Primary Care Provider: PCP Disposition: ROUTINE DISCHARGE Discharge Condition: FAIR Reason for Admission: Cough and shortness of breath/left upper lobe mass Consultations: Dr. Crow Procedures: Bronchoscopy - Problems (1) Acute bronchitis Current Visit: Yes Status: Acute Qualifiers: Bronchitis organism: unspecified organism Qualified Code(s): J20.9 - Acute bronchitis, unspecified (2) Cough Current Visit: Yes Status: Acute (3) Mass of upper lobe of left lung Current Visit: Yes Status: Acute (4) Chronic pain Onset Date: 02/11/15 Current Visit: No Status: Chronic Qualifiers: Chronic pain type: chronic pain syndrome Brief History of Present Illness: This is a 64-year-old female that was admitted through the emergency room for persistent cough with fever chills. CT of the chest was completed at that time and was found to have a left upper lobe mass. Patient has a known tobacco use history in the past for several years. Patient was admitted for further workup. Hospital Course: Patient has done well in the hospital. Labs have remained stable. Patient underwent a bronchoscopy today in which tissue samples were sent off to pathology. Concern for malignant mass in the lungs presently. No pneumonia suspected at this time. Acid fast in fungal cultures were also obtained from the lungs. Patient has remained stable post procedure and will be sent home today. Dr. Crow will follow patient clinically. PET scan will be ordered on an outpatient basis as well. No antibiotics needed at this time. Vital Signs/Physical Exam: Temp Pulse Resp BP Pulse Ox 97.8 F 60 16 143/55 H 98 04/23/19 12:41 04/23/19 12:41 04/23/19 12:41 04/23/19 12:41 04/23/19 12:00 General: Alert, In no apparent distress, Oriented x3 HEENT: PERRLA, Mucous membr. moist/pink, EOMI Neck: Supple, 2+ carotid pulse no bruit, JVD not distended, No Thyromegaly, No LAD Respiratory: Expiratory wheezes Cardiovascular: No edema, Normal pulses, Regular rate/rhythm, No gallops, No rubs, No murmurs Capillary refill: <2 Seconds Gastrointestinal: Normal bowel sounds, Soft and benign, Non-distended, No ascites, No tenderness, No masses, No rebound, No guarding Musculoskeletal: No clubbing, No swelling, No contractures, No erythema, No tenderness, No warmth Integumentary: No rashes, No breakdown, No significant lesion, No tenderness/ swelling, No erythema, No warmth, No cyanosis Neurological: Normal gait, Normal speech, Normal strength at 5/5 x4 extr, Normal tone, Sensation intact, Cranial nerves 3-12 intact, Normal reflexes 2+, Normal affect Laboratory Data at Discharge: WBC 6.0 K/uL (4.3-10.9) 04/22/19 05:19 Hgb 11.0 g/dL (12.0-15.0) L 04/22/19 05:19 Hct 32.4 % (36.0-45.0) L 04/22/19 05:19 Plt Count 213 K/uL (152-406) 04/22/19 05:19 PT 14.1 SECONDS (9.5-12.5) H 04/22/19 11:13 INR 1.20 04/22/19 11:13 Sodium 140 mmol/L (136-145) 04/23/19 04:33 Potassium 3.7 mmol/L (3.5-5.1) 04/23/19 04:33 BUN 16 mg/dL (7-18) 04/23/19 04:33 Creatinine 1.03 mg/dL (0.55-1.3) 04/23/19 04:33 Glucose 138 mg/dL (74-106) H 04/23/19 04:33 Phosphorus 3.7 mg/dL (2.5-4.9) 04/21/19 04:35 Magnesium 1.9 mg/dL (1.8-2.4) 04/21/19 04:35 Total Bilirubin 0.3 mg/dL (0.2-1.0) 04/22/19 05:19 AST 28 U/L (15-37) 04/22/19 05:19 ALT 73 U/L (12-78) 04/22/19 05:19 Alkaline Phosphatase 94 U/L (45-117) 04/22/19 05:19 Triglycerides 93 mg/dL (<150) 04/21/19 04:35 Cholesterol 232 mg/dL (<200) H 04/21/19 04:35 HDL Cholesterol 45 mg/dL (40-60) 04/21/19 04:35 Cholesterol/HDL Ratio 5.16 04/21/19 04:35 Home Medications: Alprazolam [Xanax] 1 mg PO BID 04/21/19 Hydromorphone [Dilaudid*] 1 tab PO Q6HR 04/21/19 Olmesartan Medoxomil 40 mg PO DAILY 04/21/19 Propranolol [Inderal*] 40 mg PO DAILY 04/21/19 Tizanidine HCl [Zanaflex] 4 mg PO Q6HR 04/21/19 Trazodone HCl 100 mg PO TID 04/21/19 Zolpidem Tartrate [Ambien] 10 mg PO BEDTIME 04/21/19 Albuterol Inhaler [Ventolin Inhaler*] 2 puff IH Q6H PRN #1 hfa.aer.ad 04/23/19 Mometasone/Formoterol [Dulera 200 Mcg/5 Mcg Inhaler] 2 puff IH BID #1 inhaler predniSONE [Deltasone*] 10 mg PO BID 5 Days #10 tab 04/23/19 New Medications: Albuterol Inhaler [Ventolin Inhaler*] 2 puff IH Q6H PRN #1 hfa.aer.ad PRN Reason: Shortness Of Breath Mometasone/Formoterol [Dulera 200 Mcg/5 Mcg Inhaler] 2 puff IH BID #1 inhaler predniSONE [Deltasone*] 10 mg PO BID 5 Days #10 tab Patient Discharge Instructions: 1. Continue home medications. 2. Follow up with Dr. Crow. 3. Fill new medications. 4. Ambulate as tolerated. 5. Drink plenty of fluids Diet: Regular Activity: Ad david Followup: Yariel Crow MD [ACTIVE - CAN ADMIT] - Time spent managing pt's care (in minutes): 45
--- NOTE | 2019-04-23 13:47 | RAD REPORT ---
EXAM DESCRIPTION: CT - Thorax Wo Joe - 04/20/2019 11:04 pm CLINICAL HISTORY: 64 years Female, Cough, shortness of breath TECHNIQUE: 5 mm axial images of the thorax are obtained along with 2 mm reformatting coronal and sag ittal images. This exam was performed according to our departmental dose-optimization program, which includes autom ated exposure control, adjustment of the mA and/or kV according to patient size and/or use of iterati ve reconstruction technique. COMPARISON: None. INTRAVENOUS CONTRAST: None. FINDINGS: Lung james: There are mild reticulonodular infiltrates in the left lower lobe. There is a left upper lobe mass which measures 3.5 x 2.9 x 5.3 cm in maximal AP, Transverse, and Long itudinal dimensions respectively. Mediastinal structures: There is a large lymph node in the AP window measuring 2.6 x 2.0 cm. There are enlarged subcarinal lymph nodes. There is a small hiatal hernia. Pleural space: No active pleural disease. Upper abdomen: No acute abnormalities Evidence of previous cholecystectomy. Axillae: No adenopathy. Bony structures: No suspicious lesions. IMPRESSION: 1. Left upper lobe mass suspicious for malignancy. 2. Mild reticulonodular infiltrates in left lower lobe. 3. Enlarged lymph nodes within the mediastinum suspicious for adenopathy. Electronically signed by: Yoshi Chapman MD 04/20/2019 10:21 PM WEB SITE PROJECT MANAGER Due to temporary technical issues with the PACS/Fluency reporting system, reports are being signed by the in house radiologist as a courtesy to ensure prompt reporting. The interpreting radiologist is f ully responsible for the content of the report.
--- NOTE | 2019-04-23 13:57 | RAD REPORT ---
EXAM DESCRIPTION: RAD - Chest Single View - 04/23/2019 1:51 pm CLINICAL HISTORY: post bronchoscopy Chest pain. COMPARISON: Chest Single View dated 02/28/2019; Chest Single View dated 11/30/2018; Chest Single View dated 11/29/2018; Chest Single View dated 04/19/2018; Thorax Wo Con dated 04/20/2019 FINDINGS: Portable technique limits examination quality. Moderate left upper lobe lung opacity is present without evidence of postprocedure pneumothorax. The right lung is emphysematous but clear. The heart is mildly enlarged in size. Cervical hardware is pre sent. IMPRESSION: No postprocedure pneumothorax.
[2019-04-23] MEDS ORDERED: HYDROCODONE/CHLORPHEN 5 ML/OSYR PO ONE (15:54)
[2019-04-23 15:55] VITALS: O2SAT 96
--- NOTE | 2019-04-23 15:58 | RAD REPORT ---
EXAM DESCRIPTION: RAD - FLUORO-GUIDE FOR BRONCH UPT1HR - 04/23/2019 3:24 pm CLINICAL HISTORY: Lung mass FINDINGS: 4 intraoperative fluoroscopic spot image is submitted. Bronchoscope is present within the left lung. Fluoroscopy time 2.4 minutes Exam performed by Dr. Crow
[2019-04-23 16:43] VITALS: BP 157/68; TEMP 97
[2019-04-23] MEDS ORDERED: predniSONE 10 MG TAB PO SCH (21:00)
== END 2019-04-23 19:32 | disposition home or self-care (01) | DRG 167 ==
LOC: ER 19:51 → ERHOLD 04-21 00:37 → 4TH 04-21 15:16
PROVIDERS: ADMIT Internal Medicine; ATTEND Internal Medicine
PROC: 0BDG8ZX Extraction of Left Upper Lung Lobe, Via Natural or Artificial Opening Endoscopic, Diagnostic (ICD-10-PCS; 2019-04-23)
PROC: 0B9G8ZX Drainage of Left Upper Lung Lobe, Via Natural or Artificial Opening Endoscopic, Diagnostic (ICD-10-PCS; 2019-04-23)
PROC: 0BBG8ZX Excision of Left Upper Lung Lobe, Via Natural or Artificial Opening Endoscopic, Diagnostic (ICD-10-PCS; principal; 2019-04-23 12:00)
DX: J20.9 Acute bronchitis, unspecified (principal); N17.9 Acute kidney failure, unspecified; G89.4 Chronic pain syndrome; R91.8 Other nonspecific abnormal finding of lung field; D64.9 Anemia, unspecified; G43.809 Other migraine, not intractable, without status migrainosus; Z87.891 Personal history of nicotine dependence
CPT/HCPCS: 36415; 71045; 71250; 76000; 80048; 80053; 80061; 80076; 81003; 83605; 83735; 83880; 84100; 84145; 85025; 85610; 87015; 87040; 87070; 87081; 87102; 87116; 87206; 87804; 88108; 88305; 93005; 94640; 94760; 96361; 96374; 96375; 99285; J0456; J0696; J1650; J1720; J2175; J2250; J2370; J2405; J2550; J2704; J3010; J7030; J7120; J7512; J7606

== ENCOUNTER 2019-05-04 16:53 | Emergency (ER) | payer OTHER ==
--- OUTSIDE RECORDS SUMMARY | 2019-05-04 16:56 | XMS REPORT ---
:1955 Author Organization [facility] Address [address] [place] [address] Dr. Carter [address] [place] [id number] Care Team Providers Name Role Phone Unavailable Unavailable Unavailable Problems This patient has no known problems. Allergies, Adverse Reactions, Alerts This patient has no known allergies or adverse reactions. Medications This patient has no known medications.
--- NOTE | 2019-05-04 18:15 | RAD REPORT ---
EXAM DESCRIPTION: RAD - Chest Single View - 05/04/2019 5:45 pm CLINICAL HISTORY: Chest pain COMPARISON: CT chest April 20, portable chest April 23 TECHNIQUE: AP portable chest image was obtained 1742 hours . FINDINGS: Patient has a known left upper lobe mass. The mass is still present. The local left upper lobe hemorrhagic change associated with the bronchoscopy has cleared or nearly fully cleared. No new lung parenchymal process. No failure or volume overload. Heart and vasculature are normal. No measurable pleural effusion and no pneumothorax. No acute bony abnormality seen. No acute aortic findings suspected. IMPRESSION: Known left upper lobe mass is again noted. No change from April 20. Bronchoscopy related hemorrhage in the left upper lobe has cleared. No pneumothorax.
[2019-05-04 18:40] LABS: ALT/SGPT 32 U/L (12-78); AST/SGOT 15 U/L (15-37); Albumin 3.8 g/dL (3.4-5.0); Alkaline Phosphatase 90 U/L (45-117); BUN Blood Urea Nitrogen 20 mg/dL (7-18); Bicarbonate 31 mmol/L (21-32); Bilirubin Direct 0.1 mg/dL (0-0.2); Bilirubin Total 0.4 mg/dL (0.2-1.0); Glucose Level 117 mg/dL (74-106); Magnesium 1.7 mg/dL (1.8-2.4); NT PRO-BNP 178 pg/mL (<125); Potassium 4.3 mmol/L (3.5-5.1); Protein, Total 7.8 g/dL (6.4-8.2); Sodium Level 138 mmol/L (136-145); Troponin (Emerg Dept Use Only) < 0.02 ng/mL (0.0-0.045)
[2019-05-04 19:11] LABS: Absolute Lymphocytes (CBC) 2.5 K/uL (0.7-4.9); Basophils % 0.5 % (0-1.3); Hematocrit 40.1 % (36.0-45.0); Lymphocytes % 18.1 % (15.3-44.8); MPV 7.9 fL (7.6-11.3); RBC Red Blood Cell Count 4.22 M/uL (3.86-4.86)
[2019-05-04 19:12] LABS: Protime INR 1.07
[2019-05-04] MEDS ORDERED: NA CHLORIDE 0.9% 1,000 ML ONE ×2 (19:18→21:31)
[2019-05-04] MEDS ORDERED: MORPHINE 2 MG/ML SYR ONE (19:18)
[2019-05-04] MEDS ORDERED: ONDANSETRON 4 MG/2 ML VIAL ONE (19:18)
[2019-05-04] MEDS ORDERED: MEPERIDINE HCL 50 MG/ML ONE (20:37)
[2019-05-04] MEDS ORDERED: LORAZEPAM 1 MG TABLET ONE (21:31)
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
[2019-05-05 00:18] VITALS: TEMP 98.3
[2019-05-05 00:25] VITALS: BP 155/85; O2SAT 95
--- NOTE | 2019-05-06 14:04 | EKG ---
Test Date: 2019-05-04 Test Time: 18:49:33 Oceanologist: ESTELA MEASUREMENT RESULTS: Intervals: Rate: 124 WV: 164 QRSD: 96 QT: 302 QTc: 433 [place]gil: P: 32 WV: 164 QRS: 20 T: -39 INTERPRETIVE STATEMENTS: Sinus tachycardia Possible Left atrial enlargement ST & T wave abnormality, consider inferolateral ischemia Abnormal ECG Compared to ECG 05/04/2019 17:24:38 ST (T wave) deviation now present First degree AV block no longer present Myocardial infarct finding no longer present T-wave abnormality no longer present Possible ischemia still present Electronically Signed On 05-06-19 13:59:39 REFRIGERATION LEAD by Hermes Iniguez
--- NOTE | 2019-05-06 14:04 | EKG ---
Test Date: 2019-05-04 Test Time: 17:24:38 Foreign Language Interpreter: LADAN MEASUREMENT RESULTS: Intervals: Rate: 123 KS: 214 QRSD: 98 QT: 306 QTc: 438 [place]: P: 59 KS: 214 QRS: 18 T: -47 INTERPRETIVE STATEMENTS: Sinus tachycardia with 1st degree AV block Cannot rule out Inferior infarct, age undetermined T wave abnormality, consider lateral ischemia Abnormal ECG Compared to ECG 04/21/2019 08:08:41 Myocardial infarct finding now present T-wave abnormality now present Possible ischemia now present Sinus bradycardia no longer present Electronically Signed On 05-06-19 13:59:43 BROADCAST TRANSMITTER OPERATOR by Hermes Iniguez
== END 2019-05-04 23:22 | disposition home or self-care (01) ==
LOC: ER 16:53
DX: R07.9 Chest pain, unspecified (principal); J98.4 Other disorders of lung; I10 Essential (primary) hypertension; F41.9 Anxiety disorder, unspecified; F43.10 Post-traumatic stress disorder, unspecified; Z88.2 Allergy status to sulfonamides; Z91.048 Other nonmedicinal substance allergy status
CPT/HCPCS: 96361; 93005 ×2; 85025; 80048; 36415; 83735; 85610; 80076; 84484; 83880; 71045; 96375; 96374; 99284; J2270; J2175; J7030 ×2; J2405

== ENCOUNTER 2020-05-26 17:02 | Emergency (ER) | payer OTHER ==
--- NOTE | 2020-05-26 17:59 | RAD REPORT ---
EXAM DESCRIPTION: CT - Head Brain Wo Cont - 05/26/2020 5:35 pm CLINICAL HISTORY: VISUAL DISTURBANCES COMPARISON: Head Brain Wo Cont dated 11/29/2018 TECHNIQUE: Axial 5 mm thick images of the head were obtained without IV contrast. All CT scans are performed using dose optimization technique as appropriate and may include automated exposure control or mA/KV adjustment according to patient size. FINDINGS: No intracranial hemorrhage, mass, edema or shift of mid-line structures. No acute infarcti on changes seen. No cortical edema or sulcal effacement. Atrophy changes are similar to 2019. Minimal chronic ischemic change also seen as stable. Ventricles are in proportion to volume loss. Mastoid air cells and visualized portions of the paranasal sinuses are clear. No acute bony findings. IMPRESSION: Negative non-contrast CT head examination for acute finding. No significant change from November 2018.
--- NOTE | 2020-05-26 21:09 | ER ---
Nurse's Notes [facility] Name: Lanny Bolton Age: 65 yrs Sex: Female : 1955 Arrival Date: 05/26/2020 Time: 17:06 Bed Waiting Private MD: Isidro Franco Diagnosis: Presentation: 05/26 17:09 Chief complaint: Patient states: chest pain, palpitations, face is hot, stumbling, sv disoriented, vision disturbance with seeing a pink hue to the right eye x 2 days. Coronavirus screen: Client denies travel out of the [place] in the last 14 days. At this time, the client does not indicate any symptoms associated with coronavirus-19. Ebola Screen: No symptoms or risks identified at this time. Risk Assessment: Do you want to hurt yourself or someone else? Patient reports no desire to harm self or others. Onset of symptoms was May 24, 2020. 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 - Social history:: Smoking status: Patient/guardian denies using tobacco, but has a distant history of tobacco abuse. Assessment: 17:18 Reassessment: Received VO from Dr Carroll for EKG and CT head. sv 19:26 Reassessment: pt requesting updated on results to ED staff at this time, pt informed by sg ED staff that the provider has reviewed the CT scan, continue to wait for exam room at this time. Vital Signs: 17:11 BP 166 / 90; Pulse 65; Resp 20; Temp 98.5; Pulse Ox 99% ; Weight 106.59 kg; Height 5 sv ft. 6 in. (167.64 cm); Pain 5/10; 17:11 Body Mass Index 37.93 (106.59 kg, 167.64 cm) sv ED Course: 17:06 Patient arrived in ED. mr 17:07 Isidro Franco MD is Private Physician. mr 17:08 Arm band placed on. sv 17:10 Triage completed. sv 17:17 EKG completed in triage. Results shown to MD. sv 17:35 CT Head Brain wo Cont In Process Unspecified. EDMS Administered Medications: No medications were administered Outcome: 21:08 Patient left the ED. ll1 Signatures: Dispatcher [employer] EDDee Dee Klein RN RN Ruperto Braxton RN RN Prabha Bull mr Pauline Sanchez RN RN ll1 Corrections: (The following items were deleted from the chart) 17:12 17:09 Allergies: Iodine; sv sv 17:15 17:11 106.59 kg; Height 5 ft. 6 in.; BMI: 37.9; sv sv
[2020-05-26 21:44] VITALS: BP 166/90; TEMP 98.5; O2SAT 99
--- NOTE | 2020-05-27 18:43 | EKG ---
Test Date: 2020-05-26 Test Time: 17:16:30 Marketing Database Coordinator: FRANCI MEASUREMENT RESULTS: Intervals: Rate: 62 IA: 174 QRSD: 92 QT: 420 QTc: 426 [place]: P: 39 IA: 174 QRS: 89 T: 39 INTERPRETIVE STATEMENTS: Normal sinus rhythm Normal ECG Compared to ECG 05/04/2019 18:49:33 Sinus tachycardia no longer present ST (T wave) deviation no longer present Possible ischemia no longer present Electronically Signed On 05-27-20 18:40:26 THRESHER BROOMCORN by Hermes Iniguez
--- OUTSIDE RECORDS SUMMARY | 2020-05-28 02:11 | XMS REPORT | Clinical Summary ---
:1955 Author Organization [facility] Address [address] [place] [address] Care Team Providers Name Role Phone Pcp, MD Primary Care Provider Unavailable Allergies Active Allergy Reactions Severity Noted Date Comments Elastic Bandage 12/02/2015 Iodinated Contrast Media 12/02/2015 Sulfa (Sulfonamide Antibiotics) 6 Medications Medication Sig Dispensed Refills Start Date [...] Years Used Date Former Smoker Cigarettes Quit: 12/01/18 86 Smokeless Tobacco: Never Used Alcohol Use Drinks/Week oz/Week Comments No Sex Assigned at Date Recorded Not on file Last Filed Vital Signs Not on file Plan of Treatment Not on file Results Not on fileafter 05/27/2019
--- OUTSIDE RECORDS SUMMARY | 2020-05-28 02:11 | XMS REPORT | Continuity of Care Document ---
:1955 Author Organization [facility] t Address [address] [place] [address] Care Team Providers Name Role Phone Pcp MD Primary Care Physician Unavailable Problems This patient has no known problems. Allergies, Adverse Reactions, Alerts Allergy Allergy Status Severity Reaction(s) Onset Inactive Treating Comm ents Source Name Type Date Date Clinician Elastic [facility]ensi Active [facility] - adverse [facility]:00: Medical reaction 00 Center s Iodinate Propensi Active [facility] - Contrast adverse 00:00: Medical Media reaction 00 Center s Sulfa Propensi Active [facility] (Sulfona [facility] to [facility] - mide adverse 00:00: Medical Antibiot reaction 00 Center ics) s Social History Social Habit Start Date Stop Date Quantity Comments Source Sex Assigned At [facility] Tobacco use and 2015-12-02 2015-12-02 Never used [facility] - exposure 00:00:00 00:00:00 [facility] Center Alcohol intake 2015-12-02 2015-12-02 [facility]00 non-drinker of Medical Ce nter alcohol (finding) History of 1985-12-01 Current smoker [facility] es - tobacco use 00:00:00 Medical Cent[facility] r Smoking Status Start Date Stop Date Source Former smoker 2015-12-02 00:00:00 2015-12-02 00:00:00 [facility] L [facility] Medications Ordered Filled Start Stop Current Ordering Indication Dosage Frequency Signature Comments Components Source Medication Medication Date Date Medication? Clinician (SIG) Name Name HYDROmorpho 2016-0 Yes 4mg Take [address] [facility] 8-16 by mouth [facility] - (DILAUDID) 21:11: every 4 Medi edward 4 MG tablet 21 (four) Center hours as needed for Pain. traZODone 2016-0 Yes 300mg QD Take [address] [facility] (DESYREL) 8-16 mg by [facility] - 300 MG 21:11: mouth Medical tablet 21 nightly. Center TiZANidine 2016-0 Yes 4mg [id number] Take [address] [facility] [facility] (ZANAFLEX) 8-16 [id number] by mouth 3 [facility] - 4 MG 21:11: 3D (three) Medical capsule 21 times Center daily. propranolol 2016-0 Yes 40mg Q.[id number] Take [address] (INDERAL) 8-16 [id number] by mouth 3 [facility] - 40 MG 21:11: 3D (three) Medical tablet 21 times Center daily. Procedures This patient has no known procedures. Encounters Start End Encounter Admission Attending Care Care Encounter Source Date/Time Date/Time Type Type Clinicians Facility Department ID 2019-06-01 Outpatient [id number] 13:25:56 2019-05-31 2019-05-31 Emergency E [facility] [address] [facility] 09:09:00 09:09:00 Results This patient has no known results.
== END 2020-05-26 21:08 | disposition left against medical advice (07) ==
LOC: ER 17:02
DX: R07.9 Chest pain, unspecified (principal); R00.2 Palpitations; H53.8 Other visual disturbances; F41.9 Anxiety disorder, unspecified; M54.9 Dorsalgia, unspecified; G89.29 Other chronic pain; F43.10 Post-traumatic stress disorder, unspecified; J44.9 Chronic obstructive pulmonary disease, unspecified; I34.1 Nonrheumatic mitral (valve) prolapse; I10 Essential (primary) hypertension; Z85.118 Personal history of other malignant neoplasm of bronchus and lung; Z87.891 Personal history of nicotine dependence; Z53.21 Procedure and treatment not carried out due to patient leaving prior to being seen by health care provider
CPT/HCPCS: 70450; 93005; 99282

== ENCOUNTER 2020-07-04 15:06 | Emergency (ER) | payer OTHER ==
--- OUTSIDE RECORDS SUMMARY | 2020-07-04 15:12 | XMS REPORT | Continuity of Care Document ---
:1955 Author Organization [facility] t Address [address] [place] [address] Care Team Providers Name Role Phone Pcp [...] Propensi Active [facility] (Sulfona ty to 16 [facility] - mide adverse 00:00: Medical Antibiot reaction 00 Center ics) s Social History Social Habit Start Date Stop Date Quantity Comments Source Sex Assigned At [facility] Tobacco use and 2015-12-02 2015-12-02 Never used [facility] - exposure 00:00:00 00:00:00 [facility] Center Alcohol intake 2015-12-02 2015-12-[address] [facility] 00:00:00 non-drinker of Medical Ce nter alcohol (finding) History of 1985-12-01 Current smoker [facility] es - tobacco use 00:00:00 Medical Cente r Smoking Status Start Date Stop Date Source Former smoker 2015-12-02 00:00:00 2015-12-02 00:00:00 [facility] Medications Ordered Filled Start Stop Current [...] 21 nightly. Center TiZANidine 2016-0 Yes 4mg [id number] Take [address] (ZANAFLEX) 8-16 [id number] by mouth 3 [facility] - 4 MG 21:11: 3D (three) Medical capsule 21 times Center daily. propranolol 2016-0 Yes 40mg Q.[id number] Take [address] (INDERAL) 8-16 [id number] by mouth 3 [facility] - 40 MG 21:11: 3D (three) Medical tablet 21 times Center daily. Procedures This patient has no known procedures. Encounters Start End Encounter Admission Attending Care Care Encounter Source Date/Time Date/Time Type Type Clinicians Facility Department ID 2019-06-01 Outpatient [id number] 13:25:56 2019-05-31 2019-05-31 Emergency E [facility] [address] [facility] 09:09:00 09:09:00 Results This patient has no known results.
[2020-07-04 16:23] LABS: Urine Blood NEGATIVE (NEG); Urine Glucose NEGATIVE (NEG); Urine Protein NEGATIVE (NEG); Urine Specific Gravity 1.015 (1.005-1.030)
--- NOTE | 2020-07-04 16:23 | RAD REPORT ---
EXAM DESCRIPTION: CT - Ct Stroke Brain Wo Cont - 07/04/2020 4:13 pm CLINICAL HISTORY: Visual disturbances;Dizziness Headache, drowsiness COMPARISON: No comparisonsHead Brain Wo Cont dated 05/26/2020; Head Brain Wo Cont dated 11/29/2018 TECHNIQUE: All CT scans are performed using dose optimization technique as appropriate and may inclu de automated exposure control or mA/KV adjustment according to patient size. FINDINGS: Contrast is present on the study due to recent CT the chest. This mildly limits the qualit y of study. No gross intracranial hemorrhage, hydrocephalus or extra-axial fluid collection.No areas of brain lamont ma or evidence of midline shift. The paranasal sinuses and mastoids are clear. The calvarium is intact. IMPRESSION: No acute intracranial abnormality. The findings were discussed with Dr Brock in the ER on 07/04/2020 at 4:18 p.m. by telephone.
[2020-07-04 17:15] LABS: Absolute Lymphocytes (CBC) 1.5 K/uL (0.7-4.9); Hematocrit 38.5 % (36.0-45.0); Lymphocytes % 25.3 % (15.3-44.8); MPV 7.8 fL (7.6-11.3); RBC Red Blood Cell Count 4.07 M/uL (3.86-4.86)
[2020-07-04 17:19] LABS: Protime INR 1.05
--- NOTE | 2020-07-04 17:27 | RAD REPORT ---
EXAM DESCRIPTION: RAD - Chest Single View - 07/04/2020 5:14 pm CLINICAL HISTORY: vison, dizzy Chest pain. COMPARISON: Chest Pa And Lat (2 Views) dated 05/26/2020; Chest Single View dated 05/04/2019; Chest Sing le View dated 04/23/2019; Chest Single View dated 02/28/2019 FINDINGS: Portable technique limits examination quality. Postsurgical changes are present left upper lobe. The lungs are otherwise mildly emphysematous but cl ear. The heart is mildly prominent size. Right port catheter has tip in the SVC. IMPRESSION: No acute intrathoracic process suspected.
--- NOTE | 2020-07-04 18:41 | RAD REPORT ---
EXAM DESCRIPTION: MRI - Brain W/Wo Cont - 07/04/2020 6:17 pm CLINICAL HISTORY: possible stroke Headache, drowsiness, visual disturbances. COMPARISON: Ct Stroke Brain Wo Cont dated 07/04/2020 TECHNIQUE: Multi-sequence, multiplanar MR imaging of the brain was performed with contrast. FINDINGS: No evidence of acute CVA is present. 18 x 14 mm area of T2/FLAIR hyperintensity is seen in the right posterior frontal lobe white matter. 7 mm enhancing lesion is present within this area of edema. Additional, 20 x 16 mm area of T2 and FLAIR hyperintensity in the medial right cerebellar hemisphere. 9 mm enhancing lesion is present in the medial posterior right cerebellar hemisphere within this are a of edema. Tiny 3 mm focus of enhancement seen in the midline cerebellar vermis. 4 mm focus of enhancement is pr esent near the left superior cerebellar peduncle. 5 mm focus of enhancement is present in the anterio r medial right cerebellar hemisphere. No hemorrhage is seen. No midline shift. IMPRESSION: Multiple small enhancing lesions in the brain as detailed most compatible with metastati c disease. No hemorrhage, hydrocephalus or midline shift.
--- NOTE | 2020-07-04 19:25 | RAD REPORT ---
EXAM DESCRIPTION: US - Extremity Venous Uni Ltd - 07/04/2020 6:51 pm CLINICAL HISTORY: Pain;Swelling Arm swelling and edema. COMPARISON: Extrem Venous W Compress Bear dated 11/29/2018Extrem Venous W Compress Bear dated 11/29/2018 FINDINGS: Right upper extremity venous system was interrogated with Doppler technique. Normal flow, compressibility and augmentation was noted. There is no DVT present. IMPRESSION: No evidence of right upper extremity deep venous thrombosis.
[2020-07-04] MEDS ORDERED: dexAMETHasone 10 MG/ML VIAL ONE (19:47)
[2020-07-04] MEDS ORDERED: LEVETIRACETAM 500 MG/5 ML VIAL IV ONE (19:47)
[2020-07-04] MEDS ORDERED: NA CHLORIDE 0.9% 100 ML ONE (19:47)
[2020-07-04] MEDS ORDERED: FENTANYL CITR 100 MCG/2 ML ONE ×2 (19:50→22:49)
--- NOTE | 2020-07-04 20:47 | ER ---
Nurse's Notes [facility] Name: Lanny Bolton Age: 65 yrs Sex: Female : 1955 Arrival Date: 07/04/2020 Time: 15:11 Bed 6 Private MD: Diagnosis: Metastatic Brain Lesions Presentation: 07/04 15:11 Chief complaint: karina garcia from CT states after contrast she because nauseous and tw2 tingly. Coronavirus screen:. Ebola Screen: Patient denies travel to an Ebola-affected area in the 21 days before illness onset. Onset of symptoms was July 04, 2020. 15:11 Method Of Arrival: Wheelchair tw2 15:11 Acuity: SAMREEN 3 tw2 15:58 Initial Sepsis Screen: Does the patient meet any 2 criteria? No. Patient's initial tw2 sepsis screen is negative. Does the patient have a suspected source of infection? No. Patient's initial sepsis screen is negative. Risk Assessment: Do you want to hurt yourself or someone else? Patient reports no desire to harm self or others. Triage Assessment: 15:11 General: Appears in no apparent distress. obese, well groomed, Behavior is calm, tw2 cooperative, appropriate for age. Pain: Denies pain. Neuro: Level of Consciousness is awake, alert, obeys commands, Oriented to person, place, time, situation. Cardiovascular: Capillary refill < 3 seconds Patient's skin is warm and dry. Respiratory: Airway is patent Respiratory effort is even, unlabored, Respiratory pattern is regular, symmetrical. GI: Reports nausea. : No signs and/or symptoms were reported regarding the genitourinary system. Musculoskeletal: Range of motion: intact in all extremities. 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 - Social history:: Smoking status: . Screenin:58 Abuse screen: Denies threats or abuse. Nutritional screening: No deficits noted. tw2 Tuberculosis screening: No symptoms or risk factors identified. Fall Risk None identified. Assessment: 15:50 Reassessment: pt states "i really do not want to be poked on, i have a port because tw2 they could never get blood out of me and i think i just need a zofran pill and no blood work", provider notified and medicated as ordered. 15:55 Reassessment: see triage assessment. tw2 18:57 Reassessment: No changes from previously documented assessment. Patient and/or family tw2 updated on plan of care and expected duration. Pain level reassessed. Patient is alert, oriented x 3, equal unlabored respirations, skin warm/dry/pink. pt back from MRI and US at this time, nad. 19:40 General: Appears in no apparent distress. Behavior is calm, cooperative, appropriate ea for age. Neuro: Level of Consciousness is awake, alert, obeys commands, Oriented to person, place, time. Cardiovascular: Patient's skin is warm and dry. Respiratory: Airway is patent Respiratory effort is even, unlabored, Respiratory pattern is regular, symmetrical. GI: Abdomen is non-distended. Derm: Skin is pink, warm \\T\\ dry. 20:44 Reassessment: Patient and/or family updated on plan of care and expected duration. Pain ea level reassessed. Patient is alert, oriented x 3, equal unlabored respirations, skin warm/dry/pink. Awaiting on covid results for transfer. 21:41 Reassessment: pt and pt family updated on report being called at this time, stated sg understanding. Vital Signs: 15:11 BP 114 / 59; Pulse 80; Resp 17; Temp 98.0(O); Pulse Ox 99% on R/A; tw2 17:00 BP 118 / 71; Pulse 57; Resp 16; Pulse Ox 93% ; bp 19:00 BP 134 / 77; Pulse 57; Resp 16; Pulse Ox 94% ; bp 19:20 Weight 108.86 kg; ea ED Course: 15:11 Patient arrived in ED. tw2 15:11 Bed in low position. Call light in reach. Pulse ox on. NIBP on. tw2 15:12 Triage completed. tw2 15:36 George Brock MD is Attending Physician. kdr 15:41 Marilu Centeno, NERY is Primary Nurse. tw2 15:54 Arm band placed on. tw2 16:13 CT Stroke Brain w/o Contrast In Process Unspecified. EDMS 16:41 Radiology exam delayed due to sterile procedure. jk 16:45 Accessed Port-a-Cath. using accessed w/ # 20 Aguilar needle, ,sterile technique, per [facility] protocol. Clean \\T\\ dry. Dressing intact. Good blood return. Flushes easily. 16:57 US Extremity Venous Unilateral Ltd In Process Unspecified. EDMS 17:01 Patient moved to MRI via wheelchair. tw2 17:08 Stroke CXR 1 View In Process Unspecified. EDMS 18:17 Brain W/Wo Cont In Process Unspecified. EDMS 19:17 Initiated transfer at [facility] with Nomra Irene. The call was connected to Dr. froy Brock for further questioning. 19:48 COVID swab sent to lab. sg 19:52 Norma Irene called back with the Neurologist to speak with AYANNA Del Angel, regarding tt3 the transfer request. 21:20 Assisted to bedside commode. sg 21:21 Norma Irene called back with admin approval. The accepting physician is Dr. Mcfarland. tt3 Dr. Mcfarland accepted at 2044. The pt is going to [facility] [address], [address]. Nurse to call report to . Face sheet and MOT faxed to per Norma's request. 22:00 No provider procedures requiring assistance completed. Patient transferred, IV remains sg in place. intact, No redness/swelling at site. Administered Medications: 15:53 Not Given (Duplicate Order): Zofran (Ondansetron) 4 mg IVP once; over 2 minutes tw2 15:53 Drug: Zofran (Ondansetron) 4 mg Route: PO; tw2 17:45 Drug: fentaNYL (PF) 50 mcg {Note: rass 0.} Route: IVP; Site: Port-a-cath; tw2 17:45 Follow up: Response: No adverse reaction; Pain is decreased; RASS: Alert and Calm (0) tw2 17:45 Drug: Aspirin Chewable Tablet 324 mg Route: PO; tw2 19:06 Follow up: Response: No adverse reaction tw2 19:46 Drug: Keppra 1000 mg Route: IV; Rate: calculated rate; Site: Port-a-cath; sg 19:46 Drug: Dexamethasone 1 mg/kg {Note: 10 mg.} Route: IVP; Site: Port-a-cath; sg 19:47 Drug: fentaNYL (PF) 50 mcg Route: IVP; Site: Port-a-cath; sg Outcome: 20:47 ER care complete, transfer ordered by . semaj 22:20 Transferred by ground EMS to [facility], Transfer form completed. sg 22:20 Condition: stable 22:20 Instructed on the need for transfer, safety practices, Demonstrated understanding of instructions, follow-up care. 22:26 Patient left the ED. dm5 Signatures: Dispatcher [employer] EDMS Tammy Chung RN NERY dm5 Ruperto Braxton RN George De La Torre MD MD kdr Roszak, Josh, PA PA jr8 Marilu Centeno RN RN tw2 Vanna Lovett RN Judson Lopez ea RN Adrien Serrato Tyler tt3 Corrections: (The following items were deleted from the chart) 16:30 15:50 Reassessment: pt states "i really do not want to be poked on, my port has never tw2 given blood and i think i just need a zofran pill and no blood work", provider notified and medicated as ordered tw2 16:41 16:40 Radiology exam delayed due to patient is not appropriately dressed for the exam jk at this time. jk 18:17 17:25 In radiology for Brain Wo Cont. EDMS EDMS
--- NOTE | 2020-07-04 20:47 | EDPHYS ---
Physician Documentation [facility] Name: Lanny Bolton Age: 65 yrs Sex: Female : 1955 Arrival Date: 07/04/2020 Time: 15:11 Bed 6 Private MD: ED Physician George Brock HPI: 07/04 16:10 This 65 yrs old Female presents to ER via Wheelchair with complaints of kdr Nausea/Vomiting. 16:11 [address] patient was in CT getting a chest scan as an outpatient. When they had completed kdr the exam and withdrew her port-A-Cath site she suddenly had double vision, headache and right arm swelling and right leg weakness. Onset: The symptoms/episode began/occurred suddenly, just prior to arrival. Severity of symptoms: At their worst the symptoms were mild moderate just prior to arrival, in the emergency department the symptoms are unchanged. The patient has not experienced similar symptoms in the past. The patient has been recently seen by a physician: the patient's primary care provider. 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 - Social history:: Smoking status: . ROS: 16:11 Constitutional: Negative for fever, chills, and weight loss, Eyes: Negative for injury, kdr pain, redness, and discharge, ENT: Negative for injury, pain, and discharge, Neck: Negative for injury, pain, and swelling, Abdomen/GI: Negative for abdominal pain, nausea, vomiting, diarrhea, and constipation. 16:11 Back: Negative for injury and pain, : Negative for injury, bleeding, discharge, and swelling. 16:11 Skin: Negative for injury, rash, and discoloration, Neuro: Negative for headache, weakness, numbness, tingling, and seizure activity. 16:11 Psych: Negative for depression, anxiety, suicide ideation, homicidal ideation, and hallucinations, Allergy/Immunology: Negative for hives, rash, and allergies, Endocrine: Negative for neck swelling, polydipsia, polyuria, polyphagia, and marked weight changes, Hematologic/Lymphatic: Negative for swollen nodes, abnormal bleeding, and unusual bruising. 16:11 Cardiovascular: Positive for chest pain, Negative for edema, orthopnea, palpitations, paroxysmal nocturnal dyspnea. 16:11 Cardiovascular: Positive for 16:11 Respiratory: Positive for shortness of breath, at rest. Negative for cough, hemoptysis, pleurisy, sputum production, wheezing. 16:11 MS/extremity: Positive for swelling, tenderness, of the right arm. 16:11 Neuro: Positive for headache, visual changes, weakness. Exam: 16:11 Constitutional: This is a well developed, well nourished patient who is awake, alert, kdr and in no acute distress. Head/Face: Normocephalic, atraumatic. Eyes: Pupils equal round and reactive to light, extra-ocular motions intact. Lids and lashes normal. Conjunctiva and sclera are non-icteric and not injected. Cornea within normal limits. Periorbital areas with no swelling, redness, or edema. Neck: Trachea midline, no thyromegaly or masses palpated, and no cervical lymphadenopathy. Supple, full range of motion without nuchal rigidity, or vertebral point tenderness. No Meningismus. Chest/axilla: Normal chest wall appearance and motion. Nontender with no deformity. No lesions are appreciated. Cardiovascular: Regular rate and rhythm with a normal S1 and S2. No gallops, murmurs, or rubs. Normal PMI, no JVD. No pulse deficits. Respiratory: Lungs have equal breath sounds bilaterally, clear to auscultation and percussion. No rales, rhonchi or wheezes noted. No increased work of breathing, no retractions or nasal flaring. Abdomen/GI: Soft, non-tender, with normal bowel sounds. No distension or tympany. No guarding or rebound. No evidence of tenderness throughout. Back: No spinal tenderness. No costovertebral tenderness. Full range of motion. Skin: Warm, dry with normal turgor. Normal color with no rashes, no lesions, and no evidence of cellulitis. MS/ Extremity: Pulses equal, no cyanosis. Neurovascular intact. Full, normal range of motion. Psych: Awake, alert, with orientation to person, place and time. Behavior, mood, and affect are within normal limits. 16:11 Neuro: Orientation: is normal, Mentation: is normal, Memory: is normal, Cranial nerves: no acute changes, Cerebellar function: is grossly normal based on the patient's age, Motor: is grossly normal based on the patient's age, no acute changes, Sensation: no obvious gross deficits. 18:43 ECG was reviewed by the Attending Physician. kdr Vital Signs: 15:11 BP 114 / 59; Pulse 80; Resp 17; Temp 98.0(O); Pulse Ox 99% on R/A; tw2 17:00 BP 118 / 71; Pulse 57; Resp 16; Pulse Ox 93% ; bp 19:00 BP 134 / 77; Pulse 57; Resp 16; Pulse Ox 94% ; bp 19:20 Weight 108.86 kg; ea MDM: 20:45 Data reviewed: vital signs, nurses notes, lab test result(s), EKG, radiologic studies, [facility] CT scan, MRI, plain films. Data interpreted: Pulse oximetry: on room air is 95 %. Interpretation: normal. Counseling: I had a detailed discussion with the patient and/or guardian regarding: the historical points, exam findings, and any diagnostic results supporting the discharge/admit diagnosis, lab results, radiology results, the need to transfer to another facility, [facility] does not immediately have the required specialist. ED course: Discussed case with neurosurgery and hospital medicine at [facility] who accepted patient . 20:47 Patient medically screened. jr8 07/04 15:58 Order name: Urine Dipstick--Ancillary (enter results); Complete Time: 18:13 eb 07/04 16:08 Order name: Basic Metabolic Panel; Complete Time: 18:13 kdr 07/04 16:08 Order name: CBC with Diff; Complete Time: 18:13 kdr 07/04 16:08 Order name: Protime (+inr); Complete Time: 18: kdr 07/04 16:08 Order name: Ptt, Activated; Complete Time: 18:13 kdr 07/04 16:08 Order name: CT Stroke Brain w/o Contrast; Complete Time: 18:13 kdr 07/04 17:04 Order name: Glucose, Ancillary Testing; Complete Time: 18:13 EDMS 07/04 19:18 Order name: COVID-19 : Document "Date of Symptom Onset" if Symptomatic. tt3 07/04 20:44 Order name: SARS-COV-2 RT PCR; Complete Time: 20:44 EDMS 07/04 15:53 Order name: Urine Dipstick-Ancillary (obtain specimen); Complete Time: 15:54 tw2 07/04 16:08 Order name: Stroke CXR 1 View; Complete Time: 18:13 kdr 07/04 16:08 Order name: EKG; Complete Time: 16:09 kdr 07/04 16:10 Order name: US Extremity Venous Unilateral Ltd; Complete Time: 19:28 kdr 07/04 18:17 Order name: Brain W/Wo Cont; Complete Time: 18:49 EDMS 07/04 16:08 Order name: Accucheck; Complete Time: 17:51 kdr 07/04 16:08 Order name: Cardiac monitoring; Complete Time: 17:51 kdr 07/04 16:08 Order name: EKG - Nurse/Tech; Complete Time: 17:51 kdr 07/04 16:08 Order name: IV Saline Lock; Complete Time: 17:52 kdr 07/04 16:08 Order name: Labs collected and sent; Complete Time: 17:52 kdr 07/04 16:08 Order name: NPO; Complete Time: 17:52 kdr 07/04 16:08 Order name: O2 Per Protocol; Complete Time: 16:29 kdr 07/04 16:08 Order name: O2 Sat Monitoring; Complete Time: 17:58 kdr 07/04 16:08 Order name: Stroke Swallow Screen; Complete Time: 21:43 kdr 07/04 16:55 Order name: Misc. Order; Complete Time: 16:55 tw2 EC:43 Rate is 50 beats/min. Rhythm is regular, Sinus bradycardia with No ectopy. QRS [place] is kdr Normal. Right axis deviation noted. [place] interval is normal. QRS interval is normal. QT interval is normal. No Q waves. Clinical impression: Sinus bradycardia. Administered Medications: 15:53 Not Given (Duplicate Order): Zofran (Ondansetron) 4 mg IVP once; over 2 minutes tw2 15:53 Drug: Zofran (Ondansetron) 4 mg Route: PO; tw2 17:45 Drug: fentaNYL (PF) 50 mcg {Note: rass 0.} Route: IVP; Site: Port-a-cath; tw2 17:45 Follow up: Response: No adverse reaction; Pain is decreased; RASS: Alert and Calm (0) tw2 17:45 Drug: Aspirin Chewable Tablet 324 mg Route: PO; tw2 19:06 Follow up: Response: No adverse reaction tw2 19:46 Drug: Keppra 1000 mg Route: IV; Rate: calculated rate; Site: Port-a-cath; sg 19:46 Drug: Dexamethasone 1 mg/kg {Note: 10 mg.} Route: IVP; Site: Port-a-cath; sg 19:47 Drug: fentaNYL (PF) 50 mcg Route: IVP; Site: Port-a-cath; sg Disposition: 07/04/20 20:47 Transfer ordered to [facility]. Diagnosis is Metastatic Brain Lesions. - Reason for transfer: Higher level of care. - Accepting physician is Dr. Mcfarland. - Condition is Stable. - Problem is new. - Symptoms have improved. Addendum: 07/06/2020 01:13 Co-signature as Attending Physician, George Brock MD I agree with the assessment and k dr plan of care. Signatures: Dispatcher [employer] Tammy Avalos RN RN [id number] Ruperto Braxton RN RN sg Rittger, Kevin, MD MD [facility] Bruno Reed PA PA jr8 Luis Luo, CLAIMS CONSULTANT-C CLAIMS CONSULTANT-Cla1 Marilu Centeno, RN RN tw2 Corrections: (The following items were deleted from the chart) 07/04 15:54 15:38 IV Saline Lock ordered. [facility] tw2 15:54 15:38 Labs collected and sent ordered. [facility] tw2 15:58 15:40 BASIC METABOLIC PANEL+C.LAB.BRZ ordered. EDMS EDMS 15:58 15:40 CBC+H.LAB.BRZ ordered. EDMS EDMS 15:58 15:40 HEPATIC FUNCTION+C.LAB.BRZ ordered. EDMS EDMS 15:58 15:40 LIPASE+C.LAB.BRZ ordered. EDMS EDMS 17:24 16:10 Brain W/Wo Cont ordered. EDMS EDMS 18:17 17:25 Brain Wo Cont ordered. EDMS EDMS 19:48 19:19 CORONAVIRUS ordered. EDMS EDMS 22:26 20:47 07/04/2020 20:47 Transfer ordered to [facility]. dm5 Diagnosis is Metastatic Brain Lesions. Reason for transfer: Higher level of care. Accepting physician is Dr. Mcfarland. Condition is Stable. Problem is new. Symptoms have improved. jr8
[2020-07-04] MEDS ORDERED: ONDANSETRON 4 MG/2 ML VIAL ONE (22:50)
[2020-07-04 22:54] VITALS: TEMP 98
[2020-07-04 22:55] VITALS: BP 134/77; O2SAT 94
== END 2020-07-04 22:26 | disposition short-term general hospital (02) ==
LOC: ER 15:06
DX: C79.31 Secondary malignant neoplasm of brain (principal); C34.92 Malignant neoplasm of unspecified part of left bronchus or lung; C77.9 Secondary and unspecified malignant neoplasm of lymph node, unspecified; C15.9 Malignant neoplasm of esophagus, unspecified; I10 Essential (primary) hypertension; F41.9 Anxiety disorder, unspecified; J44.9 Chronic obstructive pulmonary disease, unspecified; Z88.2 Allergy status to sulfonamides; Z20.822 Contact with and (suspected) exposure to COVID-19
CPT/HCPCS: 93005; 85025; 80048; 36415; 85610; 82947; 85730; 81003; 70450; 71045; 93971; 70553; 96375; 96374; 99285; U0003; A9577; J3010 ×2; J1100; J1953; J2405

== ENCOUNTER 2021-08-21 18:30 | Inpatient (IN) | payer OTHER ==
--- OUTSIDE RECORDS SUMMARY | 2021-08-21 18:40 | XMS REPORT | Continuity of Care Document ---
:1955 Author Organization [facility] t Address [address] [place] [address] Care Team Providers Name Role Phone RAVI FISHMAN Attending Clinician Unavailable RAVI FISHMAN Admitting Clinician Unavailable Payers Payer Name Policy Type Policy Number Effective Date Expiration Date S loli [facility] [id number] Problems This patient has no known problems. Allergies, Adverse Reactions, Alerts Allergy Allergy Status Severity Reaction(s) Onset Inactive Treating Comm ents Source Name Type Date Date Clinician ELASTIC Allergy Active [facility] BANDAGE 8-16 00:00: 00 IODINATE Allergy Active [facility] D 8-16 CONTRAST 00:00: MEDIA 00 SULFA Allergy Active SLE (SULFONA 8-16 MIDE 00:00: ANTIBIOT 00 ICS) Medications This patient has no known medications. Vital Signs Vital Name Observation Time Observation Value Comments Source WEIGHT 2020-07-05 00:20:00 107.82 kg HEIGHT 2020-07-05 00:20:00 167.6 cm WEIGHT 2020-07-05 00:20:00 107.82 kg HEIGHT 2020-07-05 00:20:00 167.6 cm Procedures This patient has no known procedures. Encounters Start End Encounter Admission Attending Care Care Encounter Source Date/Time Date/Time Type Type Clinicians Facility Department ID 2021-01-24 Inpatient ER ELVIRA FISHMAN Neuro ICU [id number] [facility] 08:59:18 ROGER 2019-06-01 Outpatient [facility] PUL 7502 [facility] 13:25:56 2020-10-15 2020-10-15 Outpatient [facility] [id number] [facility] 00:00:00 00:00:00 2020-10-15 2020-10-15 Outpatient [facility] [id number] [facility] 00:00:00 00:00:00 2020-09-16 2020-09-16 Outpatient [facility] [id number] [facility] 00:00:00 00:00:00 2020-08-18 2020-08-18 Outpatient [facility] [id number] [facility] 00:00:00 00:00:00 2020-07-24 2020-07-24 Outpatient [facility] [id number] [facility] 00:00:00 00:00:00 2020-07-24 2020-07-24 Outpatient [facility] [id number] [facility] 00:00:00 00:00:00 2020-07-09 2020-07-09 Outpatient [facility] [id number] [facility] 00:00:00 00:00:00 2019-05-31 2019-05-31 Emergency E BL [facility] 7503 [facility] 09:09:00 09:09:00 Results Test Description Test Time Test Comments Results Result [facility] e Comments MR, BRAIN, WITH 2020-07-24 Unlisted Reason 15:40:00 for Exam - Click Yes and Enter Reason Below->No BETY MAURER - Planning [facility] for [facility] DeriandilmaKIRA Hollis : 1955 Sex: F *FINAL REPORT MR, BRAIN, WITH \T\ WITHOUT CONTRAST INDICATION: Neoplasm: head, metastatic TECHNIQUE: Multiplanar, multisequence MR imaging of the brain was obtained before and after uneventful administration of gadolinium contrast. COMPARISON: July 05, 2020 FINDINGS:Index lesions as discussed in the prior examination have increased in size since the prior examination. The right posterior frontal lesion now measures approximately 9 mm (compared to 4 mm prior); the right cerebellar lesion measures 10 mm transverse (compared to 8 mm prior). Thin section treatment imaging reveals no newly apparent enhancing lesions including right paramedian cerebellar hemisphere (treatment image 36), and small left middle cerebellar lesions (treatment image 40). A permeative lesion is newly apparent (treatment image 48) and measures 6 mm transverse. No new supratentorial lesion is identified. There has been no interval infarct or hemorrhage. No midline shift or hydrocephalus is present. No abnormality of the skull base or calvarium is present. The visualized paranasal sinuses, mastoid air cells, and orbits are within normal limits. IMPRESSION: Increasing size of previously described metastatic foci with newly apparent foci in the posterior fossa as described. Signed: JR Ramos Robert MDReport Verified Date/Time: 07/24/2020 15:40:45 Reading Location: [address] Reading Room -GLUCOSE METER 2020-07-09 12:16:00 Test Item Value Reference Range Interpretation Comme nts POC-GLUCOSE METER ([facility]) 134 mg/dL 70-110 H : TESTED AT [address] (test code = 1538) [facility] X, [address]: Industrial Ecology Technician/Techni von ID = [id number] for ALINE BRANNON POCT-GLUCOSE [id number] 07:34:00 Test Item Value Reference Range Interpretation Comments POC-GLUCOSE METER 133 mg/dL 70-110 H : TESTED [place] [address] ([facility]) (test code = [facility], 1538) 61182: Industrial Ecology Technician/Techni von ID = [id number] for LAINE SHRESTHA POCT-GLUCOSE [id number] 21:13:00 Test Item Value Reference Range Interpretation Comments POC-GLUCOSE METER 141 mg/dL 70-110 H : TESTED [place] [id number] ([facility]) (test code = [facility], 1538) [address]: Industrial Ecology Technician/Techni von ID = [id number] for SOCORRO ARRIOLA BASIC METABOLIC [id number] 17:06:00 Test Item Value Reference Range Interpretation Comments SODIUM (BEAKER) 136 meq/L 136-145 (test code = 381) POTASSIUM (BEAKER) 4.0 meq/L 3.5-5.1 (test code = 379) CHLORIDE (BEAKER) 99 meq/L 98-107 (test code = 382) CO2 (BEAKER) (test 29 meq/L 22-29 code = 355) BLOOD UREA NITROGEN 24 mg/dL 7-21 H (BEAKER) (test code = 354) CREATININE (BEAKER) 1.08 mg/dL 0.57-1.25 (test code = 358) GLUCOSE RANDOM 157 mg/dL 70-105 H (BEAKER) (test code = 652) CALCIUM (BEAKER) 9.0 mg/dL 8.4-10.2 (test code = 697) EGFR (BEAKER) (test 51 mL/min/1.73 ESTIMA ATTILA GFR IS code = 1092) sq m NOT ACCURATE CREATININE CLEARANCE IN PREDICTING GLOMERULAR FILTRATION RATE . ESTIMATED GFR I S NOT APPLICABLE FOR DIALYSIS PATIEN TS. Industrial Ecology Technician ID - BSB-TYPE NATRIURETIC FACTOR (BNP)2020-07-08 17:03:00 Test Item Value Reference Range Interpretation Comments B-TYPE NATRIURETIC PEPTIDE (BEAKER) 116 pg/mL 0-100 H (test code = 700) Industrial Ecology Technician ID - BSPOCT-GLUCOSE [id number] 16:58:00 Test Item Value Reference Range Interpretation Comments POC-GLUCOSE METER 156 mg/dL 70-110 H : TESTED A T [facility] 6720 (BEAKER) (test code = [place], 1538) [address]: Industrial Ecology Technician/Techni von ID = [id number] for AUGUSTO YOUNG RAD, CHEST, 1 VIEW, NON [id number] 16:02:00Reason for exam:->hypoxia. hx of lung cancer s/p chemoradiationShould this be performed at the bed side?->Yes[facility] : 1955 Sex: FFINAL REPORT CLINICAL HISTORY: hypoxia. hx of lung cancer s/p chemor adiation TECHNIQUE: 1 view of the chest. COMPARISON: None IMPRESSION: There is a right chest wall port terminating near the cavoatrial junction. There are prominent lung markings bilaterally without lobar consolidation or significant pleural fluid. The cardiomediastinal silhouette is magnified by technique with asymmetric left hilar fullness. Given the history, further evaluation with chest CT is recommended to exclude residual/recurrent neoplasm. Signed: Chandni Vincenteport Verified Date/Time:07/08/2020 16:02:11 Reading Location: [facility] Radiology Reading Room POCT-GLUCOSE [id number] 11:57:00 Test Item Value Reference Range Interpretation Comments POC-GLUCOSE METER 144 mg/dL 70-110 H : TESTED A T [facility] 6720 (BEAKER) (test code = [facility], 1538) 21273: Industrial Ecology Technician/Techni von ID = [id number] for TE RICKY, AUGUSTO POCT-GLUCOSE [id number] 08:01:00 Test Item Value Reference Range Interpretation Comments POC-GLUCOSE METER 140 mg/dL 70-110 H : TESTED A T [facility] 6720 (BEAKER) (test code = [facility], 1538) 42185: Industrial Ecology Technician/Techni von ID = [id number] for TE RICKY, AUGUSTO POCT-GLUCOSE [id number] 21:08:00 Test Item Value Reference Range Interpretation Comments POC-GLUCOSE METER 132 mg/dL 70-110 H : TESTED A T [facility] 6720 (BEAKER) (test code = [facility], 1538) 80085: Industrial Ecology Technician/Techni von ID = [id number] for Re yes, Sairy POCT-GLUCOSE [id number] 17:12:00 Test Item Value Reference Range Interpretation Comments POC-GLUCOSE METER 130 mg/dL 70-110 H : TESTED A T [facility] 6720 (BEAKER) (test code = [facility], [facility]8) 14666: Industrial Ecology Technician/Techni von ID = [id number] for FELISHA HN, ALINE POCT-GLUCOSE [id number] 12:18:00 Test Item Value Reference Range Interpretation Comments POC-GLUCOSE METER 131 mg/dL 70-110 H : TESTED A T [facility] 6720 (BEAKER) (test code = [facility], [facility]8) 84380: Industrial Ecology Technician/Techni von ID = [id number] for FELISHA HN, ALINE POCT-GLUCOSE [id number] 07:35:00 Test Item Value Reference Range Interpretation Comments POC-GLUCOSE METER 173 mg/dL 70-110 H : TESTED A T [facility] 6720 (BEAKER) (test code = [facility], [facility]) 04371: Industrial Ecology Technician/Techni von ID = [id number] for FELISHA HN, ALINE POCT-GLUCOSE [id number] 21:44:00 Test Item Value Reference Range Interpretation Comments POC-GLUCOSE METER 130 mg/dL 70-110 H : TESTED A T [facility] 6720 (BEAKER) (test code = [facility], [facility]8) 07676: Industrial Ecology Technician/Techni von ID = [id number] for FI TE, KIMMY POCT-GLUCOSE [id number] 17:28:00 Test Item Value Reference Range Interpretation Comments POC-GLUCOSE METER 134 mg/dL 70-110 H : TESTED A T [facility] 6720 (BEAKER) (test code = [facility], [facility]) 35380: Industrial Ecology Technician/Techni von ID = [id number] for FELISHA HN, ALINE POCT-GLUCOSE [id number] 12:27:00 Test Item Value Reference Range Interpretation Comments POC-GLUCOSE METER 181 mg/dL 70-110 H : TESTED A T [facility] 6720 (BEAKER) (test code = [facility], [facility]) 21643: Industrial Ecology Technician/Techni von ID = [id number] for FELISHA HN, ALINE POCT-GLUCOSE [id number] 07:16:00 Test Item Value Reference Range Interpretation Comments POC-GLUCOSE METER 140 mg/dL 70-110 H : TESTED A T [facility] 6720 (BEAKER) (test code = [facility], 1538) 92028: Industrial Ecology Technician/Techni von ID = [id number] for ALINE SHRESTHA TROPONIN [id number] 04:01:00 Test Item Value Reference Range Interpretation Comments TROPONIN I (BEAKER) (test code = 397) < ng/mL 0.00-0.03 Troponin I (TnI) levels must be interpreted in the context of the presenting symptoms and the clinical findings. Elevated TnI levels indicate myocardial damage, but are not specific for ischemic heart disease. Elevated TnI levels are seen in patients with other cardiac conditions (including myocarditis and congestive heart failure), and slight TnI elevations occur in patients with other conditions, including sepsis, renal failure, acidosis, acute neurological disease, and persistent tachyarrhythmia.Industrial Ecology Technician ID - DBPOCT-GLUCOSE METER 2020-07-05 21:35:00 Test Item Value Reference Range Interpretation Comments POC-GLUCOSE METER 200 mg/dL 70-110 H : TESTED A T [facility] 6720 (BEAKER) (test code = [facility], 1538) 21997: Industrial Ecology Technician/Techni von ID = [id number] for KIMMY LOZADA TROPONIN [id number] 18:55:00 Test Item Value Reference Range Interpretation Comments TROPONIN I (BEAKER) (test code = 397) < ng/mL 0.00-0.03 Troponin I (TnI) levels must be interpreted in the context of the presenting symptoms and the clinical findings. Elevated TnI levels indicate myocardial damage, but are not specific for ischemic heart disease. Elevated TnI levels are seen in patients with other cardiac conditions (including myocarditis and congestive heart failure), and slight TnI elevations occur in patients with other conditions, including sepsis, renal failure, acidosis, acute neurological disease, and persistent tachyarrhythmia.Industrial Ecology Technician ID - DBMR, BRAIN, WITH 2020-07-05 17:32:00Unlisted Reason for Exam - Click Yes and Enter Reason Below- >NoDeos the patient have an implantedelectronic device?->No [facility] 1955 Sex: FFINAL REPORT MR, BRAIN, WITH \T\ WITHOUT CONTRAST INDICATION: Neopla sm: head, metastatic Technique: MRI of the brain utilizing axial T1, T2, FLAIR, GRE, DWI, sagittal T1; and postgadolinium axial, sagittal, and coronal T1- weighted images. COMPARISON: None FINDINGS:4 mmand 8 mm enhancing lesions (presumed metastases) within the right paramedian posterior frontal subcortical white matter and right cerebellar hemisphere respectively with minimal surrounding vasogenic edema but no significant midline shift or herniation. Scattered T2/FLAIR hyperintense foci within the periventricular and subcortical white matter are nonspecific, however, statistically represent chronic microvascular ischemic changes. No hydrocephalus. Orbits are within normal limits. No obstructive paranasal sinus disease. Additional findings: None. IMPRESSION: 4 mm and 8 mm enhancing lesions (presumed metastases) within the right paramedian posterior frontal subcortical white matter and right cerebellar hemisphere respectively with minimal surrounding vasogenic edema but no significant midline shift or herniation. Signed: José Miguel Castro MDRepsaint joseph [facility] Verified Date/Time: 07/05/2020 17:32:27 ReadingLocation: [facility] B1 C013V Neuro Reading Room POCT-GLUCOSE [id number] 16:40:00 Test Item Value Reference Range Interpretation Comments POC-GLUCOSE METER 171 mg/dL 70-110 H : [facility]IZA[facility] (test code = [place], 1538) [address]: Industrial Ecology Technician/Techni von ID = [id number] for OR SANDHYA KATHY POCT-GLUCOSE [id number] 13:21:00 Test Item Value Reference Range Interpretation Comments POC-GLUCOSE METER 154 mg/dL 70-110 H : TESTED A T [facility] 6720 (BEAKER) (test code = [place], 1538) 57586: Industrial Ecology Technician/Techni von ID = [id number] for OR KATHY ARTHUR POCT-GLUCOSE [id number] 08:20:00 Test Item Value Reference Range Interpretation Comments POC-GLUCOSE METER 141 mg/dL 70-110 H : TESTED A T [facility] 6720 (BEAKER) (test code = [facility] [place] [facility], 1538) 32467: Industrial Ecology Technician/Techni von ID = [id number] for OR KATHY ARTHUR HEMOGLOBIN [id number] 07:30:00 Test Item Value Reference Range Interpretation Comments HEMOGLOBIN A1C (BEAKER) (test code = 5.8 % 4.3-6.1 368) TROPONIN [id number] 03:13:00 Test Item Value Reference Range Interpretation Comments TROPONIN I (BEAKER) (test code = 397) < ng/mL 0.00-0.03 Troponin I (TnI) levels must be interpreted in the context of the presenting symptoms and the clinical findings. Elevated TnI levels indicate myocardial damage, but are not specific for ischemic heart disease. Elevated TnI levels are seen in patients with other cardiac conditions (including myocarditis and congestive heart failure), and slight TnI elevations occur in patients with other conditions, including sepsis, renal failure, acidosis, acute neurological disease, and persistent tachyarrhythmia.Industrial Ecology Technician ID - [place] MBASIC METABOLIC [id number] 03:05:00 Test Item Value Reference Range Interpretation Comments SODIUM (BEAKER) 136 meq/L 136-145 (test code = 381) POTASSIUM (BEAKER) 4.2 meq/L 3.5-5.1 (test code = 379) CHLORIDE (BEAKER) 101 meq/L 98-107 (test code = 382) CO2 (BEAKER) (test 25 meq/L 22-29 code = 355) BLOOD UREA NITROGEN 14 mg/dL 7-21 (BEAKER) (test code = 354) CREATININE (BEAKER) 1.02 mg/dL 0.57-1.25 (test code = 358) GLUCOSE RANDOM 155 mg/dL 70-105 H (BEAKER) (test code = 652) CALCIUM (BEAKER) 9.1 mg/dL 8.4-10.2 (test code = 697) EGFR (BEAKER) (test 55 mL/min/1.73 ESTIMA ATTILA GFR IS code = 1092) sq m NOT ACCURATE CREATININE CLEARANCE IN PREDICTING GLOMERULAR FILTRATION RATE . ESTIMATED GFR I S NOT APPLICABLE FOR DIALYSIS PATIEN TS. Industrial Ecology Technician ID - [place] [id number] 03:05:00 Test Item Value Reference Range Interpretation Comments MAGNESIUM (BEAKER) (test code = 1.9 mg/dL 1.6-2.6 627) Industrial Ecology Technician ID - [place] [id number] 03:05:00 Test Item Value Reference Range Interpretation Comments PHOSPHORUS (BEAKER) (test code = 3.1 mg/dL 2.3-4.7 604) Industrial Ecology Technician ID - [place] MHEPATIC FUNCTION [id number] 03:05:00 Test Item Value Reference Range Interpretation Comments TOTAL PROTEIN (BEAKER) (test code = 7.3 gm/dL 6.0-8.3 770) ALBUMIN (BEAKER) (test code = 1145) 4.2 g/dL 3.5-5.0 BILIRUBIN TOTAL (BEAKER) (test code 0.5 mg/dL 0.2-1.2 = 377) BILIRUBIN DIRECT (BEAKER) (test 0.3 mg/dL 0.1-0.5 code = 706) ALKALINE PHOSPHATASE (BEAKER) (test 158 U/L 40-150 H code = 346) AST (SGOT) (BEAKER) (test code = 23 U/L 5-34 353) ALT (SGPT) (BEAKER) (test code = 31 U/L 6-55 347) Industrial Ecology Technician ID Andrea BENDER MPROTHROMBIN [id number] 02:58:00 Test Item Value Reference Range Interpretation Comments PROTIME (BEAKER) 13.3 seconds 11.9-14.2 (test code = 759) INR (BEAKER) (test 1.04 See_Comment [Automat ed message] code = 370) The system [employer] generated this result transmitted ref erence range: <=5.90. The reference range was not used to int erpret this result as normal/abnormal . Effective 09/13/2018: PT Reference Range ChangeNew: 11.9-14.2 Previous: 11.7- 14.7RECOMMENDED COUMADIN/WARFARIN INR THERAPY RANGESSTANDARD DOSE: 2.0-3.0 Includes: PROPHYLAXIS for venous thrombosis, systemic embolization; TREATMENT for venous thrombosis and/or pulmonary embolus.HIGH RISK: Target INR is2.5-3.5 for patients wiht mechanical heart valves.CBC W/PLT COUNT & AUTO [id number] 02:48:00 Test Item Value Reference Range Interpretation Comments WHITE BLOOD CELL COUNT (BEAKER) 7.0 K/ L 3.5-10.5 (test code = 775) RED BLOOD CELL COUNT (BEAKER) 4.39 M/ L 3.93-5.22 (test code = 761) HEMOGLOBIN (BEAKER) (test code = 13.8 GM/DL 11.2-15.7 410) HEMATOCRIT (BEAKER) (test code = 41.3 % 34.1-44.9 411) MEAN CORPUSCULAR VOLUME (BEAKER) 94.1 fL 79.4-94.8 (test code = 753) MEAN CORPUSCULAR HEMOGLOBIN 31.4 pg 25.6-32.2 (BEAKER) (test code = 751) MEAN CORPUSCULAR HEMOGLOBIN CONC 33.4 GM/DL 32.2-35.5 (BEAKER) (test code = 752) RED CELL DISTRIBUTION WIDTH 12.0 % 11.7-14.4 (BEAKER) (test code = 412) PLATELET COUNT (BEAKER) (test 229 K/CU MM 150-450 code = 756) MEAN PLATELET VOLUME (BEAKER) 9.3 fL 9.4-12.3 L (test code = 754) NUCLEATED RED BLOOD CELLS 0 /100 WBC 0-0 (BEAKER) (test code = 413) NEUTROPHILS RELATIVE PERCENT 84 % (BEAKER) (test code = 429) LYMPHOCYTES RELATIVE PERCENT 15 % (BEAKER) (test code = 430) MONOCYTES RELATIVE PERCENT 1 % (BEAKER) (test code = 431) EOSINOPHILS RELATIVE PERCENT 0 % (BEAKER) (test code = 432) BASOPHILS RELATIVE PERCENT 1 % (BEAKER) (test code = 437) NEUTROPHILS ABSOLUTE COUNT 5.80 K/ L 1.56-6.13 (BEAKER) (test code = 670) LYMPHOCYTES ABSOLUTE COUNT 1.01 K/ L 1.18-3.74 L (BEAKER) (test code = 414) MONOCYTES ABSOLUTE COUNT (BEAKER) 0.07 K/ L 0.24-0.36 L (test code = 415) EOSINOPHILS ABSOLUTE COUNT 0.01 K/ L 0.04-0.36 L (BEAKER) (test code = 416) BASOPHILS ABSOLUTE COUNT (BEAKER) 0.05 K/ L 0.01-0.08 (test code = 417) IMMATURE GRANULOCYTES-RELATIVE 0 % 0-1 PERCENT (BEAKER) (test code = 2805)
[2021-08-21] MEDS ORDERED: NA CHLORIDE 0.9% 1,000 ML ONE (18:52)
[2021-08-21 19:04] LABS: Absolute Lymphocytes (CBC) 0.9 K/uL (0.7-4.9); Hematocrit 39.1 % (36.0-45.0); Lymphocytes % 15.3 % (15.3-44.8); MPV 7.4 fL (7.6-11.3); RBC Red Blood Cell Count 4.44 M/uL (3.86-4.86)
[2021-08-21 19:41] LABS: Magnesium 1.7 mg/dL (1.8-2.4)
[2021-08-21 19:44] LABS: Potassium 2.5 mmol/L (3.5-5.1)
--- NOTE | 2021-08-21 19:59 | RAD REPORT ---
EXAM DESCRIPTION: RAD - Tib Fib Right - 08/21/2021 7:48 pm CLINICAL HISTORY: Right leg pain FINDINGS: Minimally displaced fracture proximal diaphysis fibula. Oblique lucency within the proximal tibia equivocal for nondisplaced fracture
[2021-08-21] MEDS ORDERED: KCL 20 MEQ/100 mL IVPB 100 ML IV ONE (20:51)
[2021-08-21] MEDS ORDERED: Magnesium Sulfate 2gm IVPB 2 G/50 ML BAG IV ONE (20:52)
--- NOTE | 2021-08-21 20:59 | RAD REPORT ---
EXAM DESCRIPTION: USExtrem Venous W Compress Bil08/21/2021 8:29 pm CLINICAL HISTORY: Leg pain COMPARISON: 2020 FINDINGS: The common femoral, superficial femoral, popliteal and posterior tibial veins bilaterally are compressible and demonstrate augmentation. Doppler demonstrates good flow. Grayscale, color and spectral analysis performed on all vessels IMPRESSION: No evidence of deep venous thrombosis involving either lower extremity.
--- NOTE | 2021-08-21 21:14 | EDPHYS ---
Physician Documentation [facility] Name: Lanny Bolton Age: 66 yrs Sex: Female : 1955 Arrival Date: 08/21/2021 Time: 18:35 Bed 15 Private MD: ED Physician No Ervin HPI: 08/21 18:50 This 66 yrs old Female presents to ER via EMS with complaints of Right Lower Leg Pain. cp 18:50 The patient presents with pain, that is acute. cp 18:50 The complaints affect the right lower leg. cp 18:50 Context: resulted from an unknown cause, the patient can fully bear weight, the patient cp is able to ambulate, with mild difficulty, Problem is a result from a previous injury: No. Onset: The symptoms/episode began/occurred today. Associated signs and symptoms: Pertinent positives: weakness. Treatment prior to arrival includes: no previous treatment. 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 - Social history:: Smoking status: Patient denies any tobacco usage or history of. ROS: 18:55 Constitutional: Negative for body aches, chills, fever, poor PO intake. cp 18:55 Eyes: Negative for injury, pain, redness, and discharge. cp 18:55 Cardiovascular: Negative for chest pain, palpitations. 18:55 Respiratory: Negative for cough, shortness of breath, wheezing. 18:55 Abdomen/GI: Negative for abdominal pain, nausea, vomiting, and diarrhea. 18:55 MS/extremity: Positive for pain, of the right lower leg, Negative for injury or acute deformity, decreased range of motion. 18:55 Neuro: Positive for weakness. 18:55 All other systems are negative. Exam: 19:00 ECG was reviewed by the Attending Physician. cp 19:02 Constitutional: The patient appears in no acute distress, alert, awake, cp non-diaphoretic, non-toxic, well developed, well nourished. 19:02 Head/Face: Normocephalic, atraumatic. cp 19:02 Eyes: Periorbital structures: appear normal, Conjunctiva: normal, no exudate, no injection, Sclera: no appreciated abnormality, Lids and lashes: appear normal, bilaterally. 19:02 ENT: External ear(s): are unremarkable, Nose: is normal, Mouth: Lips: dry, Oral mucosa: dry, Posterior pharynx: Airway: no evidence of obstruction, patent. 19:02 Neck: ROM/movement: is normal, is supple, without pain, no range of motions limitations. 19:02 Chest/axilla: Inspection: normal. 19:02 Cardiovascular: Rate: normal, Rhythm: regular, Edema: ankle edema, that is mild, JVD: is not appreciated. 19:02 Respiratory: the patient does not display signs of respiratory distress, Respirations: normal, no use of accessory muscles, no retractions, labored breathing, is not present, Breath sounds: are clear throughout, no decreased breath sounds, no stridor, no wheezing. 19:02 Abdomen/GI: Inspection: abdomen appears normal, Palpation: abdomen is soft and non-tender, in all quadrants. 19:02 Musculoskeletal/extremity: Extremities: grossly normal except: noted in the right lower leg: pain, swelling, tenderness, Pulses: noted to be 2+ in the right radial artery, right dorsalis pedis artery, left radial artery and left dorsalis pedis artery. 19:02 Neuro: Orientation: no acute changes, per family, Mentation: no acute changes, per family, Motor: moves all fours, general weakness with no focal deficits, Sensation: no obvious gross deficits. Vital Signs: 18:35 BP 99 / 52; Pulse 82; Resp 17; Temp 98.2; Pulse Ox 97% ; Weight 90.72 kg (M); Height 5 ghosh ft. 7 in. (170.18 cm); 18:35 Body Mass Index 31.32 (90.72 kg, 170.18 cm) ghosh MDM: 18:43 Patient medically screened. cp 19:00 Differential diagnosis: dislocation, closed fracture, contusion, DVT. cp 21:15 Data reviewed: vital signs, nurses notes, lab test result(s), EKG, radiologic studies, cp plain films, ultrasound. 21:15 Test interpretation: by ED physician or midlevel provider: ECG, plain radiologic cp studies. Counseling: I had a detailed discussion with the patient and/or guardian regarding: the historical points, exam findings, and any diagnostic results supporting the discharge/admit diagnosis, lab results, radiology results. Physician consultation: Luis Luo was contacted at 21:10, regarding admission, to the telemetry unit. patient's condition, and will see patient in ED, shortly. 08/21 18:42 Order name: Basic Metabolic Panel; Complete Time: 20:02 cp 05/ 21:05 Interpretation: Normal except: NA 134; K 2.5; CL 89; CO2 38; GLUC 126; BUN 33; CRE cp 1.78; GFR 29. 05 18:42 Order name: CBC with Diff; Complete Time: 20:02 cp 08/21 18:42 Order name: US Extremity Venous W Compression Bear; Complete Time: 21:05 cp 08/21 18:42 Order name: XRAY Tib Fib RIGHT; Complete Time: 20:02 cp 05/06 20:04 Interpretation: Report reviewed. 08/21 18:42 Order name: Magnesium; Complete Time: 20:02 08/21 21:53 Order name: COVID-19/FLU A+B (Document "Date of Onset" if Symptomatic); Complete Time: lp1 23:57 08/21 18:42 Order name: EKG; Complete Time: 18:43 cp 08/21 18:42 Order name: Cardiac monitoring; Complete Time: 18:58 cp 08/21 18:42 Order name: EKG - Nurse/Tech; Complete Time: 18:58 cp 08/21 18:42 Order name: IV Saline Lock; Complete Time: 18:58 cp 08/21 18:42 Order name: Labs collected and sent; Complete Time: 18:58 cp 08/21 18:42 Order name: O2 Per Protocol; Complete Time: 18:58 cp 08/21 18:42 Order name: O2 Sat Monitoring; Complete Time: 18:58 cp 05 20:11 Order name: Splint - Long Leg: Posterior w/ Stirrup: right leg; Complete Time: 00:01 cp EC:00 Rate is 56 beats/min. Rhythm is regular. ME interval is normal. QRS interval is cp prolonged at 108 msec. QT interval is prolonged at 526 msec. T waves are Inverted in lead aVR. Interpreted by me. Reviewed by me. Administered Medications: 18:58 Drug: NS 0.9% 500 ml Route: IV; Rate: bolus; Site: Other; ghosh 18:58 Drug: NS 0.9% 500 ml Route: IV; Rate: 125 ml/hr; Site: Other; ghosh 20:59 Drug: Potassium Chloride 20 mEq Route: IV; Rate: calculated rate; Site: Port-a-cath; ke1 20:59 Drug: Magnesium Sulfate 1 grams Route: IVPB; Infused Over: 1 hrs; Site: Port-a-cath; ke Disposition Summary: 08/21/21 21:13 Hospitalization Ordered Hospitalization Status: Observation cp Provider: Ephraim Gorman cp Location: Telemetry/MedSurg (observation) cp Condition: Stable cp Problem: new cp Symptoms: have improved cp Bed/Room Type: Standard Room Assignment: 214(08/21/21 23:22) lp1 Diagnosis - Dehydration cp - Hypokalemia cp - Nondisplaced comminuted fracture of shaft of right fibula, initial encounter for cp closed fracture - Unspecified injury of unspecified kidney, initial encounter cp Forms: - Medication Reconciliation Form cp - SBAR form cp Signatures: Dispatcher [employer] EDAR Aisha Bal RN RN lp1 Luis Luo FNP-C [employer]ER-Cla1 Geoff Bruce PA PA cp Margarita Berg RN RN Lisbet Mehta RN RN ke1 Corrections: (The following items were deleted from the chart) 19:20 19:00 This 66 yrs old Female presents to ER via EMS with complaints of Right Lower Leg cp Pain. cp 19:20 19:00 The patient presents with pain, that is acute, cp cp 21:05 20:04 Normal except: NA 134; K 2.5; CL 89; CO2 38; GLUC 126; BUN 33; CRE 1.78. cp cp 23:22 21:13 cp lp1
--- NOTE | 2021-08-21 21:14 | ER ---
Nurse's Notes [facility] Name: Lanny Bolton Age: 66 yrs Sex: Female : 1955 Arrival Date: 08/21/2021 Time: 18:35 Bed 15 Private MD: Diagnosis: Dehydration;Hypokalemia;Nondisplaced comminuted fracture of shaft of right fibula, initial encounter for closed fracture;Unspecified injury of unspecified kidney, initial encounter Presentation: 08/21 18:35 Chief complaint: Spouse and/or significant other states: spouse reporting pt have right ghosh leg pain x 3days. Coronavirus screen: Vaccine status: Patient reports receiving the 2nd dose of the covid vaccine. Ebola Screen: Patient denies travel to an Ebola-affected area in the 21 days before illness onset. Initial Sepsis Screen: Does the patient meet any 2 criteria? No. Patient's initial sepsis screen is negative. Does the patient have a suspected source of infection? No. Patient's initial sepsis screen is negative. Risk Assessment: Do you want to hurt yourself or someone else? Patient reports no desire to harm self or others. Onset of symptoms was August 18, 2021. 18:35 Method Of Arrival: EMS: [facility] ghosh 18:35 Method Of Arrival: EMS: [facility] ghosh 18:35 Acuity: SAMREEN 4 ghosh 18:46 Acuity: SAMREEN 3 iw Triage Assessment: 18:37 General: Appears in no apparent distress. Behavior is calm, cooperative. Pain: ghosh Complains of pain in right leg. 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 - Social history:: Smoking status: Patient denies any tobacco usage or history of. Screenin:38 Abuse screen: Denies threats or abuse. Denies injuries from another. Nutritional ghosh screening: No deficits noted. Tuberculosis screening: No symptoms or risk factors identified. Fall Risk Gait- Impaired (20 pts.). Mental Status- Overestimates/Forgets Limitations (15 pts.). Assessment: 18:58 General: Appears distressed, Behavior is calm, cooperative, drowsy. Pain: Complains of ghosh pain in right leg. 19:09 Reassessment: Patient appears in no apparent distress at this time. ke1 08/22 00:59 Reassessment: report given to Tammy GABRIEL in med surg. ke Vital Signs: 08/21 18:35 BP 99 / 52; Pulse 82; Resp 17; Temp 98.2; Pulse Ox 97% ; Weight 90.72 kg (M); Height 5 ghosh ft. 7 in. (170.18 cm); 18:35 Body Mass Index 31.32 (90.72 kg, 170.18 cm) ghosh ED Course: 18:35 Patient arrived in ED. ghosh 18:37 Triage completed. ghosh 18:37 Arm band placed on. ghosh 18:38 Patient has correct armband on for positive identification. Bed in low position. ghosh 18:38 No provider procedures requiring assistance completed. ghosh 18:40 Geoff Bruce PA is PHCP. cp 18:40 No Ervin MD is Attending Physician. cp 18:44 Margarita Berg, RN is Primary Nurse. ghosh 18:58 Accessed [facility]. ghosh 19:43 Notified Nurse Practitioner and/or Physician Fermenting Cellar Dropper of a critical lab result(s), lp1 Potassium 2.5. 19:50 XRAY Tib Fib RIGHT In Process Unspecified. EDMS 20:31 US Extremity Venous W Compression Bear In Process Unspecified. EDMS 21:11 Ephraim Gorman is Hospitalizing Provider. cp 08/22 00:01 Orthoglass splint: Posterior long leg splint applied on right leg. stirrup splint oe applied on right leg. Administered Medications: 08/21 18:58 Drug: NS 0.9% 500 ml Route: IV; Rate: bolus; Site: Other; ghosh 18:58 Drug: NS 0.9% 500 ml Route: IV; Rate: 125 ml/hr; Site: Other; 20:59 Drug: Potassium Chloride 20 mEq Route: IV; Rate: calculated rate; Site: Port-a-cath; ke1 20:59 Drug: Magnesium Sulfate 1 grams Route: IVPB; Infused Over: 1 hrs; Site: Port-a-cath; ke Outcome: 21:13 Decision to Hospitalize by Provider. matty 08/22 01:57 Patient left the ED. ke1 Signatures: Dispatcher [employer] EDNaomi Bernard, RN NERY Aisha Bal RN RN lp1 Geoff Bruce PA PA Luke Del Rosario Heather, RN RN ha Ebrottie, Kouassi, RN RN ke1
[2021-08-21 23:12] LABS: SARS-COV-2 RT PCR NEGATIVE (NEGATIVE)
--- NOTE | 2021-08-21 23:22 | P.HP ---
Certification for Inpatient Patient admitted to: Observation With expected LOS: <2 Midnights Patient will require the following post-hospital care: None Practitioner: I am a practitioner with admitting privileges, knowledge of patient current condition, hospital course, and medical plan of care. 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 Patient currently on hospice for stage IV non-small cell lung cancer was evaluated in the emergency department found to dehydration, severe hypokalemia, hypomagnesemia, acute kidney injury and a nontraumatic and we displaced fracture of the proximal diaphysis fibula also present oblique lucency within the proximal tibia equivocal for nondisplaced fracture. ED provider discussed case at length with family/ José phone number [phone] who agree issue and benefit with IV hydration, IV potassium has been discussed case with patient's hospice company who will revoke for the time being but reinstate after discharge likely tomorrow. Let was applied to right lower extremity in the emergency department. Allergies ciprofloxacin [From Cipro] Allergy (Verified 04/21/19 00:43) Anaphylaxis ciprofloxacin HCl [From Cipro] Allergy (Verified 04/21/19 00:43) Anaphylaxis iodine-123 Adverse Reaction (Intermediate, Verified 04/21/19 00:43) Itching/Hives/Rash Sulfa (Sulfonamide Antibiotics) [Sulfa(Sulfonamide Antibiotics)] Adverse Reaction (Intermediate, Verified 04/21/19 00:43) Shortness of breath Cipro PO Allergy (Uncoded 04/21/19 00:43) Anaphylaxis SULFA (SULFONAMIDES) Allergy (Uncoded 04/21/19 00:43) Anaphylaxis Home Medications: Alprazolam [Xanax] 1 mg PO BID 04/21/19 Hydromorphone [Dilaudid*] 1 tab PO Q6HR 04/21/19 Olmesartan Medoxomil 40 mg PO DAILY 04/21/19 Propranolol [Inderal*] 40 mg PO DAILY 04/21/19 Tizanidine HCl [Zanaflex] 4 mg PO Q6HR 04/21/19 Trazodone HCl 100 mg PO TID 04/21/19 Zolpidem Tartrate [Ambien] 10 mg PO BEDTIME 04/21/19 Albuterol Inhaler [Ventolin Inhaler*] 2 puff IH Q6H PRN #1 hfa.aer.ad 04/23/19 Mometasone/Formoterol [Dulera 200 Mcg/5 Mcg Inhaler] 2 puff IH BID #1 inhaler 04/23/19 predniSONE [Deltasone*] 10 mg PO BID 5 Days #10 tab 04/23/19 - Past Medical/Surgical History Diabetic: No -: HTN -: Asthma -: seizures -: PTSD -: anxiety -: chronic back pain -: osteoarthritis -: mitral valve prolapse -: irregular hr -: Stg 4 non-small cell lung CA -: Cholecystectomy -: Neck surgeries x3 -: -: Hysterectomy -: Amputation of ring finger L Hand -: Bowel reconstructive surgery (tubal ligation infection) Psychosocial/ Personal History: On hospice, lives at home with - Family History Father -: Lung disease, Cancer Notes: brain ca Mother -: Cancer Notes: colon ca Sister -: Cancer Notes: cervical ca - Social History Smoking Status: Former smoker Alcohol use: No CD- Drugs: No Caffeine use: Yes Place of Residence: Home Review of Systems 10-point ROS is otherwise unremarkable General: Weakness, Malaise Musculoskeletal: Leg Pain, As per HPI Physical Examination - Physical Exam General: Alert, In no apparent distress, Oriented x3 HEENT: Atraumatic, PERRLA, Mucous membr. moist/pink, EOMI, Sclerae nonicteric Neck: Supple, 2+ carotid pulse no bruit, No LAD, Without JVD or thyroid abnormality Respiratory: Clear to auscultation bilaterally, Normal air movement Cardiovascular: Regular rate/rhythm, Normal S1 S2 Capillary refill: <2 Seconds Gastrointestinal: Normal bowel sounds, No tenderness Musculoskeletal: No tenderness Integumentary: No rashes Neurological: Normal speech, Normal strength at 5/5 x4 extr, Normal tone, Normal affect - Studies Laboratory Data (last 24 hrs) 08/21/21 18:50: WBC 6.0, Hgb 12.9, Hct 39.1, Plt Count 295 08/21/21 18:50: Sodium 134 L, Potassium 2.5 L*, BUN 33 H, Creatinine 1.78 H, Glucose 126 H, Magnesium 1.7 L Assessment and Plan - Plan Assessment: PIERO, dehydration Hypokalemia Hypomagnesemia Stage 4 non-small cell lung cancer COPD Plan: PIERO, dehydration: Continue IV fluids overnight, recheck labs in AM, wanted patient rehydrated and electrolytes replaced prior to DC, plans to set hospice back up at DC had already spoken to them José POA [phone] Hypokalemia: Protocol in place Hypomagnesemia: Protocol in place Stage 4 non-small cell lung cancer: Plan for DC back on hospice. Continue home meds including pain meds. COPD: PRN nebs DVT PPX:Lovenox Code status:Full Discharge Plan: Home Plan to discharge in: 24 Hours - Advance Directives Does patient have a Living Will: No Does patient have a Durable POA for Healthcare: No - Code Status/Comfort Care Code Status Assessed: Yes (DNR) Critical Care: No Time Spent Managing Pts Care (In Minutes): 55
[2021-08-22] MEDS: HYDROMORPHONE ORAL 4 MG TAB PO PRN ×5 (00:09→15:59)
[2021-08-22] MEDS ORDERED: METHADONE HCL 10 MG TAB PO ONE (00:25)
[2021-08-22] MEDS ORDERED: ZOLPIDEM TARTRATE 5 MG TABLET ONE (00:26)
[2021-08-22] MEDS: ZOLPIDEM TARTRATE 10 MG TABLET PO PRN ×2 (00:35→22:00)
[2021-08-22] MEDS: METHADONE HCL 10 MG TAB PO PRN ×2 (00:35→09:07)
[2021-08-22 01:48] VITALS: BMI 32.9
[2021-08-22] MEDS: NA CHLORIDE 0.9% 1,000 ML IV SCH ×4 (02:29→21:34)
[2021-08-22 05:39] LABS: Magnesium 2.3 mg/dL (1.8-2.4)
[2021-08-22 05:40] LABS: Potassium 2.4 mmol/L (3.5-5.1)
[2021-08-22] MEDS: KCL 20 MEQ/100 mL IVPB 20 MEQ/100 ML BAG IV SCH ×5 (06:36→21:57)
[2021-08-22] MEDS ORDERED: PNEUMOCOCCAL VACCINE 0.5 ML IMVAC ONE (09:00)
[2021-08-22] MEDS: ENOXAPARIN 40 MG/0.4 ML SQ SCH (09:03)
--- NOTE | 2021-08-22 09:23 | EKG ---
Test Date: 2021-08-21 Test Time: 18:53:39 Parts Inspector: JUSTIN MEASUREMENT RESULTS: Intervals: Rate: 56 FL: 168 QRSD: 108 QT: 526 QTc: 507 [place]: P: 33 FL: 168 QRS: 92 T: 16 INTERPRETIVE STATEMENTS: Sinus bradycardia with marked sinus arrhythmia Rightward axis T wave abnormality, consider anterior ischemia Prolonged QT Abnormal ECG Compared to ECG 07/04/2020 16:43:11 T-wave abnormality now present Possible ischemia now present Prolonged QT interval now present Electronically Signed On 08-22-21 09:22:19 CDT by Hermes Iniguez
--- NOTE | 2021-08-22 13:11 | P.PN ---
Subjective Date of Service: 08/22/21 Chief Complaint: Hypokalemia Patient doing much better today. She is awake and alert. States her pain is well controlled. She had a good lunch. Physical Examination - Vital Signs Temperature: 97.4 F Blood Pressure: 120/58 Pulse: 74 Respirations: 18 Pulse Ox (%): 99 - Physical Exam General: Alert, In no apparent distress HEENT: Mucous membr. moist/pink Neck: JVD not distended Respiratory: Clear to auscultation bilaterally, Normal air movement Cardiovascular: No edema, Regular rate/rhythm, Normal S1 S2 Gastrointestinal: Soft and benign, Non-distended, No tenderness Musculoskeletal: Other (Splinted right lower extremity) Integumentary: No rashes, No cyanosis Neurological: Other (No focal motor deficit) - Studies Laboratory Data (last 24 hrs) 08/21/21 18:50: WBC 6.0, Hgb 12.9, Hct 39.1, Plt Count 295 08/21/21 18:50: Sodium 134 L, Potassium 2.5 L*, BUN 33 H, Creatinine 1.78 H, Glucose 126 H, Magnesium 1.7 L Assessment And Plan - Current Problems (Diagnosis) (1) Hypokalemia Current Visit: Yes Status: Acute (2) Acute kidney injury Current Visit: Yes Status: Acute (3) Right tibial fracture Current Visit: Yes Status: Acute (4) Metastatic lung cancer (metastasis from lung to other site) Current Visit: Yes Status: Acute - Plan Patient with significant potassium deficit. Continue potassium replacement IV. Monitor potassium level. IV hydration for PIERO. Patient with good oral intake today. Pain management as tolerated. She revoked hospice in order to come to the ED for medical treatment. Patient and spouse declining surgical intervention. They want only medical management for the fracture. Physical therapy to evaluate patient and advise family regarding activity level and ways to cope with a fracture during transfers and ambulation. Continue home pain medication-methadone.
[2021-08-22] MEDS ORDERED: KCL 20 MEQ/100 mL IVPB 20 MEQ/100 ML BAG IV SCH ×2 (17:00)
[2021-08-22] MEDS: ONDANSETRON 4 MG/2 ML VIAL IV PRN (17:19)
[2021-08-23 02:25] LABS: Magnesium 1.9 mg/dL (1.8-2.4); Potassium 3.3 mmol/L (3.5-5.1)
[2021-08-23] MEDS: KCL 20 MEQ/100 mL IVPB 20 MEQ/100 ML BAG IV SCH ×2 (03:38→05:47)
[2021-08-23] MEDS: HYDROMORPHONE ORAL 4 MG TAB PO PRN ×2 (04:32→08:48)
[2021-08-23] MEDS: NA CHLORIDE 0.9% 1,000 ML IV SCH ×2 (05:47→17:04)
[2021-08-23] MEDS: ENOXAPARIN 40 MG/0.4 ML SQ SCH (08:48)
[2021-08-23] MEDS: METHADONE HCL 10 MG TAB PO PRN (08:48)
[2021-08-23] MEDS ORDERED: METHADONE HCL 10 MG TAB PO PRN (10:57)
[2021-08-23] MEDS: ALPRAZOLAM 1 MG TABLET PO SCH ×2 (10:58→21:11)
[2021-08-23] MEDS: HYDROMORPHONE ORAL 4 MG TAB PO SCH ×2 (11:52→17:03)
--- NOTE | 2021-08-23 11:54 | P.PN ---
Subjective Date of Service: 08/23/21 Chief Complaint: Hypokalemia Patient has no new complaint today. Oral intake has improved. She is awake and alert. States her pain is well controlled. Physical Examination - Vital Signs Temperature: 99.0 F Blood Pressure: 149/65 Pulse: 77 Respirations: 18 Pulse Ox (%): 99 - Physical Exam General: Alert, In no apparent distress, Oriented x3 HEENT: Mucous membr. moist/pink Neck: Supple, JVD not distended Respiratory: Clear to auscultation bilaterally, Normal air movement Cardiovascular: No edema, Regular rate/rhythm, Normal S1 S2 Gastrointestinal: Normal bowel sounds, Soft and benign, Non-distended Musculoskeletal: No swelling Integumentary: No rashes Neurological: Normal strength at 5/5 x4 extr - Studies Laboratory Data (last 24 hrs) 08/22/21 15:57: Potassium 2.8 L* Assessment And Plan - Current Problems (Diagnosis) (1) Hypokalemia Current Visit: Yes Status: Acute (2) Acute kidney injury Current Visit: Yes Status: Acute (3) Right tibial fracture Current Visit: Yes Status: Acute (4) Metastatic lung cancer (metastasis from lung to other site) Current Visit: Yes Status: Acute - Plan Hypokalemia is improving Continue to replete as needed Continue to replete other electrolytes-magnesium, phosphorus. PIERO resolved Patient with good oral intake today. Pain management as tolerated. She revoked hospice in order to come to the ED for medical treatment. Patient and spouse declining surgical intervention for the tibia fracture. They want only medical management.. Physical therapy to follow for recommendation regarding activity level. Continue home medications.
[2021-08-23] MEDS ORDERED: POTASSIUM CL SA 10 MEQ TAB PO ONE (16:00)
[2021-08-23] MEDS ORDERED: TRAZODONE 50 MG TABLET PO SCH (21:00)
[2021-08-23] MEDS ORDERED: ZOLPIDEM TARTRATE 10 MG TABLET PO SCH (21:00)
[2021-08-24] MEDS: HYDROMORPHONE ORAL 4 MG TAB PO SCH ×3 (00:34→11:53)
[2021-08-24] MEDS: NA CHLORIDE 0.9% 1,000 ML IV SCH ×2 (05:34→11:59)
[2021-08-24 06:08] LABS: Magnesium 1.5 mg/dL (1.8-2.4); Potassium 3.5 mmol/L (3.5-5.1)
[2021-08-24] MEDS ORDERED: Magnesium Sulfate 2gm IVPB 2 G/50 ML BAG IV ONE (07:29)
[2021-08-24] MEDS ORDERED: POTASSIUM 25 MEQ EFFERV TAB PO ONE (07:30)
[2021-08-24] MEDS: ALPRAZOLAM 1 MG TABLET PO SCH (07:46)
[2021-08-24] MEDS: ENOXAPARIN 40 MG/0.4 ML SQ SCH (07:47)
[2021-08-24] MEDS ORDERED: ARIPiprazole 5 MG TAB PO SCH (09:00)
[2021-08-24 09:19] VITALS: O2SAT 95
[2021-08-24] MEDS: ONDANSETRON 4 MG/2 ML VIAL IV PRN (10:09)
--- NOTE | 2021-08-24 12:07 | P.DS ---
Admission Date: 08/22/21 Discharge Date: 08/24/21 Disposition: HOSPICE-HOME Discharge Condition: FAIR Reason for Admission: Hypokalemia - Problems (1) Hypokalemia Current Visit: Yes Status: Acute (2) Acute kidney injury Current Visit: Yes Status: Acute (3) Right tibial fracture Current Visit: Yes Status: Acute (4) Metastatic lung cancer (metastasis from lung to other site) Current Visit: Yes Status: Acute Brief History of Present Illness: 66-year-old female patient with stage IV non-small cell lung cancer with mets to brain/skeletal bones presented to the emergency department for right lower extremity pain. Patient currently on hospice for stage IV non-small cell lung cancer was evaluated in the emergency department found to have severe hypokalemia, hypomagnesemia, acute kidney injury and nondisplaced fracture of the proximal diaphysis fibula also present oblique lucency within the proximal tibia equivocal for nondisplaced fracture. Patient denied any trauma. ED provider discussed case at length with family/ José phone number [phone] who wanted hospitalization for IV hydration, potassium and potassium replacement. Family revoked hospice and patient was hospitalized for further management. Splint applied to the right leg in the ED. Hospital Course: Patient admitted to the medical floor and treated with supportive measures including IV hydration, placed on IV potassium and magnesium replacement. Acute renal failure resolved, hypokalemia improved, patient currently with normal potassium level. Magnesium level also improved. Patient had good oral intake. She revoked hospice in order to come to the ED for medical treatment. Patient and spouse declining surgical intervention for the tibia fracture. They want only medical management.. She was seen by PT who gave recommendation regarding transfers and mobilization. Patient vitals have been stable, she is deemed stable for discharge. They want to go back to home with hospice. Vital Signs/Physical Exam: Temp Pulse Resp BP Pulse Ox 97.9 F 74 16 125/61 95 08/24/21 08:00 08/24/21 08:00 08/24/21 11:53 08/24/21 08:00 08/24/21 11:53 General: Alert, In no apparent distress HEENT: Mucous membr. moist/pink Neck: JVD not distended Respiratory: Clear to auscultation bilaterally, Normal air movement Cardiovascular: No edema, Normal S1 S2 Gastrointestinal: Soft and benign, Non-distended Musculoskeletal: Other (Right leg splinted) Integumentary: No rashes, No cyanosis Neurological: Other (No focal motor deficit) Laboratory Data at Discharge: WBC 6.0 K/uL (4.3-10.9) 08/21/21 18:50 Hgb 12.9 g/dL (12.0-15.0) 08/21/21 18:50 Hct 39.1 % (36.0-45.0) 08/21/21 18:50 Plt Count 295 K/uL (152-406) 08/21/21 18:50 Sodium 142 mmol/L (136-145) 08/24/21 05:41 Potassium 3.5 mmol/L (3.5-5.1) 08/24/21 05:41 BUN 5 mg/dL (7-18) L 08/24/21 05:41 Creatinine 0.70 mg/dL (0.55-1.3) 08/24/21 05:41 Glucose 88 mg/dL (74-106) 08/24/21 05:41 Magnesium 1.5 mg/dL (1.8-2.4) L 08/24/21 05:41 Home Medications: Alprazolam [Xanax] 1 mg PO BID 08/22/21 Aripiprazole [Abilify] 10 mg PO DAILY 08/22/21 Hydromorphone [Dilaudid*] 8 mg PO Q6HR 08/22/21 Methadone HCl [Methadone HCl*] 10 mg PO DAILY PRN 08/22/21 Trazodone HCl 100 mg PO BEDTIME 08/22/21 Zolpidem Tartrate [Ambien*] 10 mg PO BEDTIME 08/22/21 Diet: Regular Activity: Fall precautions Followup: FARIDA IQBAL [Primary Care Provider] - Time spent managing pt's care (in minutes): 32
[2021-08-24 13:28] VITALS: BP 126/58; TEMP 97.7
[2021-08-24] MEDS ORDERED: HEPARIN 500 UNIT/5 ML SYR IV ONE (14:00)
== END 2021-08-24 15:26 | disposition hospice, home (50) | DRG 641 ==
LOC: ER 18:30 → ERHOLD 21:36 → 2ND 08-22 01:26 → OBSVTOIN 08-22 18:35
PROVIDERS: ADMIT Internal Medicine; ATTEND Internal Medicine
DX: E87.6 Hypokalemia (principal); N17.9 Acute kidney failure, unspecified; M84.463A Pathological fracture, right fibula, initial encounter for fracture; M84.461A Pathological fracture, right tibia, initial encounter for fracture; C34.90 Malignant neoplasm of unspecified part of unspecified bronchus or lung; C79.31 Secondary malignant neoplasm of brain; C79.51 Secondary malignant neoplasm of bone; E86.0 Dehydration; E83.42 Hypomagnesemia; J44.9 Chronic obstructive pulmonary disease, unspecified; Z88.0 Allergy status to penicillin; Z88.2 Allergy status to sulfonamides; Z20.822 Contact with and (suspected) exposure to COVID-19
CPT/HCPCS: 0240U; 36415; 80048; 83735; 84132; 85025; 93005; 93970; 96374; 96375; 97161; 97530; 99284; G0378; J1642; J1650; J2405; J3475; J3480; J7030